=== PATIENT | male | born 1965 | race Caucasian/White ===

== ENCOUNTER 2016-08-15 13:09 | Emergency (ER) | payer MEDICARE, MEDICAID ==
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
[2016-08-15 16:44] LABS: APPEARANCE,URINE CLEAR; BILIRUBIN,URINE NEGATIVE (NEGATIVE); GLUCOSE, URINE NEGATIVE (NEGATIVE); KETONES,URINE NEGATIVE (NEGATIVE); LEUKOCYTE ESTERASE,URINE NEGATIVE (NEGATIVE); NITRITE,URINE POSITIVE (NEGATIVE); PROTEIN,URINE NEGATIVE (NEGATIVE); URINE SPECIFIC GRAVITY 1.008
[2016-08-15] MEDS ORDERED: CIPROFLOXACIN HCL 500 MG TABLET PO ONE (16:46)
[2016-08-15] MEDS ORDERED: HYDROCODONE/ACETAMINOPHEN 5-325 MG TABLET PO ONE (17:12)
[2016-08-15] MEDS ORDERED: OXYCODONE-ACETAMINOPHEN 5-325 MG TABLET PO ONE (17:21)
[2016-08-15 20:32] VITALS: BP 105/65
== END 2016-08-15 17:40 | disposition home or self-care (01) ==
LOC: ER 13:09
DX: N15.9 Renal tubulo-interstitial disease, unspecified (principal); R10.9 Unspecified abdominal pain; R39.198 Other difficulties with micturition; F17.210 Nicotine dependence, cigarettes, uncomplicated
CPT/HCPCS: 99284; 87086; 81001; 76380; A9270 ×2

== ENCOUNTER 2016-12-24 17:18 | Emergency (ER) | payer MEDICARE, MEDICAID ==
[2016-12-24 17:27] VITALS: BP 110/79
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
--- NOTE | 2016-12-24 20:19 | RADIOLOGY REPORT (SQ) ---
EXAM DESCRIPTION: VENOUS UNILATERAL LOWER COMPLETED DATE/TIME: 12/24/2016 8:09 pm REASON FOR STUDY: pain posterior leg left heavy smoker COMPARISON: None. TECHNIQUE: Dynamic and static morillo scale and color images acquired of the left leg venous system. Se lected spectral images acquired with additional compression and augmentation maneuvers. The contralat eral common femoral vein and saphenofemoral junction were also imaged. Images stored on PACS. LIMITATIONS: None. FINDINGS: COMMON FEMORAL: Normal phasicity, compression and augmentation. No visualized echogenic ma terial on morillo scale. No defects on color images. FEMORAL: Normal compression and augmentation. No visualized echogenic material on morillo scale. No defe cts on color images. POPLITEAL: Normal compression, augmentation. No visualized echogenic material on morillo scale. No defec ts on color images. CALF VESSELS: Normal compression, augmentation. No visualized echogenic material on morillo scale. No de fects on color images. GSV and SSV: Normal compression, augmentation. No visualized echogenic material on morillo scale. No def ects on color images. ANY DEEP VENOUS INSUFFICIENCY: Not evaluated. ANY EVIDENCE OF POPLITEAL CYST: No. OTHER: No other significant finding. CONTRALATERAL COMMON FEMORAL VEIN AND SAPHENOFEMORAL JUNCTION: Normal phasicity, compression and augmentation. No visualized echogenic material on morillo scale. No de fects on color images. IMPRESSION: NO EVIDENCE DVT OR SVT IN THE LEFT LEG. TECHNICAL DOCUMENTATION: JOB ID: [id number] [employer]- All Rights Reserved
[2016-12-24] MEDS ORDERED: IBUPROFEN 800 MG TABLET PO ONE (20:31)
== END 2016-12-24 20:40 | disposition home or self-care (01) ==
LOC: ER 17:18
DX: M79.662 Pain in left lower leg (principal); M79.652 Pain in left thigh; M25.562 Pain in left knee; G89.29 Other chronic pain; I10 Essential (primary) hypertension; F17.210 Nicotine dependence, cigarettes, uncomplicated; Z71.6 Tobacco abuse counseling; Z88.1 Allergy status to other antibiotic agents
CPT/HCPCS: 93971; 99283

== ENCOUNTER 2017-01-25 13:35 | Emergency (ER) | payer MEDICARE, MEDICAID ==
[2017-01-25 14:41] VITALS: BP 152/94
[2017-01-25] MEDS ORDERED: IBUPROFEN 800 MG TABLET PO ONE (15:14)
[2017-01-25] MEDS ORDERED: LIDOCAINE 2% VISCOUS SOLN 20 ML UDCUP PO ONE (15:14)
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
== END 2017-01-25 15:57 | disposition home or self-care (01) ==
LOC: ER 13:35
DX: G89.18 Other acute postprocedural pain (principal); R68.84 Jaw pain; I10 Essential (primary) hypertension; F17.210 Nicotine dependence, cigarettes, uncomplicated; Z71.6 Tobacco abuse counseling; Z88.1 Allergy status to other antibiotic agents
CPT/HCPCS: 99282; A9270; J3490

== ENCOUNTER → 2017-02-02 | Outpatient (CLI) | payer MEDICARE, MEDICAID ==
--- NOTE | 2017-02-02 10:47 | RADIOLOGY REPORT (SQ) ---
EXAM DESCRIPTION: SHOULDER RIGHT 2 OR MORE VIEWS COMPLETED DATE/TIME: 02/02/2017 10:15 am REASON FOR STUDY: DISLOCATION RIGHT SHOULDER,POST TRAMATIC OSTEOARTHRITIS RIGHT SHOULDER M19.111 PO ST-TRAUMATIC OSTEOARTHRITIS, RIGHT SHOULDER S43.004S UNSPECIFIED DISLOCATION OF RIGHT SHOULDER JOINT , SE M25.569 PAIN IN UNSPECIFIED KNEE COMPARISON: 05/15/2014 NUMBER OF VIEWS: Three views. TECHNIQUE: Internal rotation, external rotation, and Y view images acquired of the right shoulder. LIMITATIONS: None. FINDINGS: MINERALIZATION: Normal. BONES: No acute fracture or dislocation. No worrisome bone lesions. JOINTS: No dislocation. VISUALIZED LUNGS AND RIBS: No pneumothorax. No rib fracture. SOFT TISSUES: No radiopaque foreign body. OTHER: No other significant finding. IMPRESSION: NEGATIVE STUDY OF THE RIGHT SHOULDER. NO RADIOGRAPHIC EVIDENCE OF ACUTE INJURY. TECHNICAL DOCUMENTATION: JOB ID: [id number] [employer]- All Rights Reserved
--- NOTE | 2017-02-02 11:23 | RADIOLOGY REPORT (SQ) ---
EXAM DESCRIPTION: KNEE LEFT 4 VIEWS COMPLETED DATE/TIME: 02/02/2017 10:15 am REASON FOR STUDY: PAIN IN UNSPECIFIED KNEE M19.111 POST-TRAUMATIC OSTEOARTHRITIS, RIGHT SHOULDER S4 3.004S UNSPECIFIED DISLOCATION OF RIGHT SHOULDER JOINT, SE M25.569 PAIN IN UNSPECIFIED KNEE COMPARISON: 01/17/2015 MRI 03/21/2015 NUMBER OF VIEWS: Four views. TECHNIQUE: AP, lateral, and both oblique radiographic images acquired of the left knee. LIMITATIONS: None. FINDINGS: MINERALIZATION: Normal. BONES: No acute fracture or dislocation. No worrisome bone lesions. JOINT: There is no significant effusion. Posterior spurs are present on the patella. SOFT TISSUES: No soft tissue swelling. No radio-opaque foreign body. OTHER: No other significant finding. IMPRESSION: There are mild degenerative joint changes patellofemoral compartment. No other signific ant or acute abnormality is seen. TECHNICAL DOCUMENTATION: JOB ID: [id number] [employer]- All Rights Reserved
--- NOTE | 2017-02-02 11:26 | RADIOLOGY REPORT (SQ) ---
EXAM DESCRIPTION: KNEE RIGHT 4 VIEWS COMPLETED DATE/TIME: 02/02/2017 10:15 am REASON FOR STUDY: PAIN IN UNSPECIFIED KNEE M19.111 POST-TRAUMATIC OSTEOARTHRITIS, RIGHT SHOULDER S4 3.004S UNSPECIFIED DISLOCATION OF RIGHT SHOULDER JOINT, SE M25.569 PAIN IN UNSPECIFIED KNEE COMPARISON: 03/04/2008 NUMBER OF VIEWS: Four views. TECHNIQUE: AP, lateral, and both oblique radiographic images acquired of the right knee. LIMITATIONS: None. FINDINGS: MINERALIZATION: Normal. BONES: No acute fracture or dislocation. No worrisome bone lesions. JOINT: No effusion. There are posterior spurs on the patella. Marginal osteophytes are seen in the lateral joint compartment. SOFT TISSUES: Calcifications are seen in the medial ligaments. OTHER: No other significant finding. IMPRESSION: Mild patellofemoral degenerative joint changes and mild lateral degenerative joint velázquez es. Likely old medial ligament injury. TECHNICAL DOCUMENTATION: JOB ID: [id number] [employer]- All Rights Reserved
== END ==
LOC: OD 09:51
PROVIDERS: ATTEND Obstetrics & Gynecology
DX: S43.004S Unspecified dislocation of right shoulder joint, sequela (principal); M19.111 Post-traumatic osteoarthritis, right shoulder; M17.0 Bilateral primary osteoarthritis of knee

== ENCOUNTER 2017-02-07 20:15 | Observation (INO) | payer MEDICARE, MEDICAID ==
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
--- NOTE | 2017-02-07 22:16 | RADIOLOGY REPORT (SQ) ---
EXAM DESCRIPTION: SACRUM AND COCCYX COMPLETED DATE/TIME: 02/07/2017 10:02 pm REASON FOR STUDY: PA lat, rectal plastic FB COMPARISON: None. NUMBER OF VIEWS: Three views. TECHNIQUE: AP, lateral, and tilt views of the sacrum and coccyx. LIMITATIONS: None. FINDINGS: MINERALIZATION: Normal. BONES: No acute fracture or dislocation. No worrisome bone lesions. SOFT TISSUES: No soft tissue swelling. Rectal bowel gas outlines an oblong, roughly rectangular fore ign body which may taper cranially. OTHER: No other significant finding. IMPRESSION: Apparent rectal foreign body. Otherwise unremarkable appearance of the pelvis. TECHNICAL DOCUMENTATION: JOB ID: [id number] [employer]- All Rights Reserved
[2017-02-07] MEDS ORDERED: NORMAL SALINE 1000 ML 1,000 ML IV PRN (23:37)
[2017-02-07] MEDS ORDERED: MORPHINE SULFATE 10 MG/ML INJ IV PRN ×2 (23:41→23:42)
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
[2017-02-08] MEDS: MORPHINE SULFATE 10 MG/ML INJ IV PRN ×3 (04:11→14:13)
[2017-02-08 06:21] LABS: ABSOLUTE BASOPHILS # (AUTO) 0.1 10^3/uL (0.0-0.2); ABSOLUTE EOSINOPHILS # (AUTO) 0.3 10^3/uL (0.0-0.6); ABSOLUTE LYMPHOCYTES (AUTO) 2.4 10^3/uL (0.5-4.7); ABSOLUTE MONOCYTES (AUTO) 0.8 10^3/uL (0.1-1.4); ABSOLUTE NEUT (AUTO) 5.6 10^3/uL (1.7-8.2); BASOPHILS % (AUTO) 0.8 % (0-2); EOSINOPHILS % (AUTO) 2.9 % (0-6); HEMOGLOBIN 13.8 g/dL (13.5-17.0); HGB HCT DIFFERENCE 1.4; LYMPHOCYTES % (AUTO) 26.4 % (13-45); MEAN CORPUSCULAR HEMOGLOBIN 30.9 pg (27.0-33.4); MEAN CORPUSCULAR HGB CONC 34.5 g/dL (32.0-36.0); MEAN CORPUSCULAR VOLUME 90 fl (80-97); MONOCYTES % (AUTO) 8.8 % (3-13); RED BLOOD COUNT 4.47 10^6/uL (4.35-5.55); RED CELL DISTRIBUTION WIDTH 13.4 % (11.5-14.0); SEGMENTED NEUTROPHILS % (AUTO) 61.1 % (42-78); WHITE BLOOD COUNT 9.2 10^3/uL (4.0-10.5)
[2017-02-08 06:43] LABS: ANION GAP 11 (5-19); BLOOD UREA NITROGEN 20 mg/dL (7-20); CARBON DIOXIDE 22 mmol/L (22-30); CHLORIDE 106 mmol/L (98-107); CREATININE RESULT 0.94 mg/dL (0.52-1.25); GLUCOSE 91 mg/dL (75-110); SODIUM 139.2 mmol/L (137-145)
[2017-02-08] MEDS ORDERED: CEFAZOLIN INJ 1 GM VIAL IV ONE (08:00)
--- NOTE | 2017-02-08 10:48 | EKG REPORT ---
SEVERITY:- NORMAL ECG - SINUS RHYTHM : Confirmed by: Christophe Trejo 08-Feb-2017 10:47:41
[2017-02-08] MEDS ORDERED: IPRATROPIUM/ALBUTEROL 0.5-2.5 MG/3 ML AMPUL NEB ONE (10:56)
[2017-02-08] MEDS ORDERED: KETAMINE HCL INJ 500 MG/10 ML VIAL ONE (11:10)
[2017-02-08] MEDS ORDERED: MIDAZOLAM 2 MG/2 ML INJ ONE ×2 (11:10→11:11)
[2017-02-08] MEDS ORDERED: FENTANYL CITRATE INJ/PF 100 MCG/2 ML AMPUL ONE (11:10)
[2017-02-08] MEDS ORDERED: PROPOFOL INJ 200 MG/20 ML VIAL IV ONE (11:10)
[2017-02-08] MEDS ORDERED: GLUCAGON,HUMAN RECOMB 1 MG INJ ONE (11:12)
[2017-02-08] MEDS ORDERED: CIPROFLOXACIN 400 MG/D5W RTU 400 MG/200 ML RTUPB IV ONE (11:30)
[2017-02-08] MEDS ORDERED: LIDOCAINE 1% INJ (10 MG/ML) 10 ML MDV INJ ONE (11:54)
[2017-02-08] MEDS ORDERED: LIDOCAINE 1% INJ-PF (10 MG/ML) 30 ML SDV ONE (11:55)
[2017-02-08 16:08] VITALS: BP 97/57
--- NOTE | 2017-02-08 16:48 | OPERATIVE REPORT E ---
Operative Report NAME: ORLANDO PUTNAM : 1965 AGE: 51Y DATE OF SURGERY: 02/08/2017 ROOM: 427 PREOPERATIVE DIAGNOSIS: Foreign body in the rectum, a plastic lotion bottle. POSTOPERATIVE DIAGNOSIS: Foreign body in the rectum, a plastic lotion bottle. OPERATION: Removal of foreign body "plastic bottle" from the rectum. SURGEON: MARLA TOBAR M.D. ANESTHESIA: General. INDICATION: This is a 51-year-old male who inserted a plastic bottle of shampoo in his rectum about 3 nights ago. He has been complaining of increasing pains and went to the emergency room last night and noted to have a bottle in the rectum about 14 cm x 5.5 cm in diameter. The patient still able to pass flatus but has episodic pains in the abdomen likely due to gas pains. His white count remained normal and afebrile. DESCRIPTION OF PROCEDURE: After adequate general anesthesia, the patient was placed in the lithotomy position and the perineal area prepped and draped in the usual sterile fashion. With the use of a vaginal speculum, the plastic bottle could be seen and could be palpated by the tip of the index finger; however, it appeared to be stuck. Next, a 20-Congolese relatively stiff Myers catheter with a 30 mL bag was then passed through the side of the foreign body into the distal rectum and subsequently inflated a 30 mL balloon and pulled back until it engaged the foreign body. This was done to prevent the foreign body from moving up while trying to pull it out. Next, the superior edge of the bottle was grasped with tenaculum forceps and there was a gush of bluish fluid that was quite jelly like and appear to be shampoo in character. Following this, since I was not able to pull out the foreign body with the use of tenaculum because the bottle tends to go posterior, and attempt to make an opening through the center of the bottle with the use of an #11 blade was done. More gush of the bottle contents came out and suctioned out. At this point, another tenaculum forceps was placed on the medial aspect of the bottle. Also the patient was given 1 mg of glucagon IV after injecting the rectal sphincters with 20 mL of 0.5% Xylocaine. This time when the bottle was almost empty and the rectal sphincter was more relaxed together with the glucagon effect, I was able to pull back on bottle and eventually pull it out of the rectum. The patient did have a small amount of bleeding around the mucosa during the procedure but no evidence of deep injury. At this point, the procedure was terminated. The patient tolerated the procedure quite well. Minimal blood loss was noted. The bottle I believe is an 8 fluid ounce of shampoo. The patient was then brought to the PACU in satisfactory condition. DICTATING PHYSICIAN: MARLA TOBAR M.D. [id number] PHY#: [id number] ID: [id number] JOB#: [id number] ACCT: [id number] cc:MARLA TOBAR M.D. >
[2017-02-08] MEDS ORDERED: OXYCODONE-ACETAMINOPHEN 5-325 MG TABLET PO PRN (17:25)
[2017-02-08] MEDS ORDERED: OXYCODONE-ACETAMINOPHEN 5-325 MG TABLET ONE (17:26)
[2017-02-08] MEDS ORDERED: MORPHINE SULFATE 10 MG/ML INJ IV PRN (18:11)
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
== END 2017-02-08 19:00 | disposition home or self-care (01) ==
LOC: ER 20:15 → EH 23:37 → UNDOADMOB 23:53 → EH 23:53 → 4S 02-08 02:15
PROVIDERS: ATTEND Surgery
PROC: 0DCP7ZZ Extirpation of Matter from Rectum, Via Natural or Artificial Opening (ICD-10-PCS; principal; 2017-02-08 11:30)
DX: T18.5XXA Foreign body in anus and rectum, initial encounter (principal); X58.XXXA Exposure to other specified factors, initial encounter; K62.5 Hemorrhage of anus and rectum; I10 Essential (primary) hypertension; E78.00 Pure hypercholesterolemia, unspecified; F17.200 Nicotine dependence, unspecified, uncomplicated; Z79.899 Other long term (current) drug therapy; Z87.820 Personal history of traumatic brain injury
CPT/HCPCS: 99285; 96361; 96374; 36415; 87040; 85025; 80048; 72220; 93005; 93010; 45915; J2250; J3010; J1610; J3490 ×2; J2270; A9270 ×2; J7030; J2704; J7620

== ENCOUNTER 2017-03-05 13:22 | Emergency (ER) | payer MEDICARE, MEDICAID ==
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
--- NOTE | 2017-03-05 17:07 | RADIOLOGY REPORT (SQ) ---
EXAM DESCRIPTION: ACUTE ABDOMEN SERIES COMPLETED DATE/TIME: 03/05/2017 4:57 pm REASON FOR STUDY: no BM x 5 days COMPARISON: CT abdomen pelvis 08/15/2016 Supine and erect views of the abdomen 12/19/2013, 08/09/2010 NUMBER OF VIEWS: Three views. TECHNIQUE: Frontal chest, supine abdomen and upright abdomen radiographic images acquired. LIMITATIONS: None. FINDINGS: CHEST: Chronic elevation of the right hemidiaphragm unchanged. No acute infiltrates. No pleural effusion. No pneumothorax. No cardiomegaly or hilar enlargement. FREE AIR: None. No abnormal gas collections. BOWEL GAS PATTERN: Nonobstructive pattern. No dilated loops or air fluid levels. CALCIFICATIONS: 12 mm stone over the left lower pole kidney unchanged from CT 08/15/2016. HARDWARE: IVC filter at the level of the L1 and L2 transverse processes SOFT TISSUES: No gross mass or suggestion of organomegaly. BONES: No acute fracture. No worrisome bone lesions. OTHER: No other significant finding. IMPRESSION: Nonobstructive bowel gas pattern. No constipation. Left lower pole intrarenal nonobstructive stone. Chronic elevation right hemidiaphragm. TECHNICAL DOCUMENTATION: JOB ID: [id number] [employer]- All Rights Reserved
[2017-03-05] MEDS ORDERED: MAGNESIUM CITRATE 296 ML BOTTLE PO ONE (17:10)
[2017-03-05 17:29] VITALS: BP 136/82
== END 2017-03-05 17:29 | disposition home or self-care (01) ==
LOC: ER 13:22
DX: K59.03 Drug induced constipation (principal); T40.2X5A Adverse effect of other opioids, initial encounter; I10 Essential (primary) hypertension; F17.200 Nicotine dependence, unspecified, uncomplicated; Z88.1 Allergy status to other antibiotic agents; Z98.890 Other specified postprocedural states
CPT/HCPCS: 99283; 74022; J3490

== ENCOUNTER 2017-05-27 13:08 | Inpatient (IN) | payer MEDICARE, MEDICAID ==
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
[2017-05-27 13:32] LABS: ABSOLUTE BASOPHILS # (AUTO) 0.1 10^3/uL (0.0-0.2); ABSOLUTE EOSINOPHILS # (AUTO) 0.3 10^3/uL (0.0-0.6); ABSOLUTE LYMPHOCYTES (AUTO) 2.2 10^3/uL (0.5-4.7); ABSOLUTE MONOCYTES (AUTO) 0.8 10^3/uL (0.1-1.4); ABSOLUTE NEUT (AUTO) 5.8 10^3/uL (1.7-8.2); BASOPHILS % (AUTO) 0.7 % (0-2); EOSINOPHILS % (AUTO) 2.8 % (0-6); HEMATOCRIT 45.3 % (37.9-51.0); HEMOGLOBIN 15.5 g/dL (13.5-17.0); LYMPHOCYTES % (AUTO) 23.9 % (13-45); MEAN CORPUSCULAR HEMOGLOBIN 30.6 pg (27.0-33.4); MEAN CORPUSCULAR HGB CONC 34.3 g/dL (32.0-36.0); MEAN CORPUSCULAR VOLUME 89 fl (80-97); MONOCYTES % (AUTO) 8.9 % (3-13); PLATELET COUNT 192 10^3/uL (150-450); RED BLOOD COUNT 5.07 10^6/uL (4.35-5.55); RED CELL DISTRIBUTION WIDTH 13.2 % (11.5-14.0); SEGMENTED NEUTROPHILS % (AUTO) 63.7 % (42-78); TOTAL CELLS COUNTED % (AUTO) 100 %; WHITE BLOOD COUNT 9.1 10^3/uL (4.0-10.5)
[2017-05-27 14:00] LABS: ALANINE AMINOTRANSFERASE 24 U/L (21-72); ALBUMIN 4.3 g/dL (3.5-5.0); ALKALINE PHOSPHATASE 79 U/L (38-126); ANION GAP 11 (5-19); ASPARTATE AMINO TRANSFERASE 18 U/L (17-59); BILIRUBIN,DIRECT 0.3 mg/dL (0.0-0.4); BILIRUBIN,TOTAL 0.6 mg/dL (0.2-1.3); BLOOD UREA NITROGEN 16 mg/dL (7-20); CALCIUM 9.9 mg/dL (8.4-10.2); CARBON DIOXIDE 27 mmol/L (22-30); CHLORIDE 102 mmol/L (98-107); GLUCOSE 88 mg/dL (75-110); POTASSIUM 4.1 mmol/L (3.6-5.0); SODIUM 140.3 mmol/L (137-145); TOTAL PROTEIN 6.8 g/dL (6.3-8.2)
[2017-05-27 14:01] LABS: ACETAMINOPHEN < 10 ug/mL (10-30); ALCOHOL < 10 mg/dL (NONE DETECTED); SALICYLATE < 1.0 mg/dL (2.0-20.0)
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
[2017-05-27] MEDS ORDERED: NORMAL SALINE 1000 ML 1,000 ML IV ONE ×2 (15:07→16:03)
[2017-05-27 15:26] LABS: AMORPHOUS SEDIMENT,URINE TRACE /HPF; APPEARANCE,URINE CLOUDY; BILIRUBIN,URINE NEGATIVE (NEGATIVE); COLOR,URINE YELLOW; GLUCOSE, URINE NEGATIVE (NEGATIVE); KETONES,URINE NEGATIVE (NEGATIVE); LEUKOCYTE ESTERASE,URINE NEGATIVE (NEGATIVE); NITRITE,URINE NEGATIVE (NEGATIVE); PROTEIN,URINE NEGATIVE (NEGATIVE); URINE SPECIFIC GRAVITY 1.009
[2017-05-27] MEDS ORDERED: NALOXONE HCL INJ 2 MG/2 ML DISP.SYRIN IV ONE (15:31)
[2017-05-27 15:42] LABS: URINE AMPHETAMINES SCREEN NEGATIVE; URINE BARBITURATES SCREEN NEGATIVE; URINE BENZODIAZEPINES SCREEN NEGATIVE; URINE COCAINE SCREEN NEGATIVE; URINE MARIJUANA (THC) SCREEN NEGATIVE; URINE METHADONE SCREEN NEGATIVE; URINE PHENCYCLIDINE SCREEN NEGATIVE
--- NOTE | 2017-05-27 19:10 | EKG REPORT ---
SEVERITY:- NORMAL ECG - SINUS RHYTHM : Confirmed by: Christophe Trejo 27-May-2017 19:09:41
[2017-05-27] MEDS ORDERED: DEXTROSE 5%-NORMAL SALINE 1,000 ML IV PRN ×2 (20:11→20:22)
[2017-05-27] MEDS ORDERED: DEXTROSE 40% GEL 15 GM TUBE PO PRN (20:12)
[2017-05-27] MEDS ORDERED: GLUCAGON,HUMAN RECOMB 1 MG INJ SUBCUT PRN (20:12)
--- NOTE | 2017-05-27 21:21 | RADIOLOGY REPORT (SQ) ---
EXAM DESCRIPTION: CHEST SINGLE VIEW COMPLETED DATE/TIME: 05/27/2017 8:44 pm REASON FOR STUDY: AMS COMPARISON: None. NUMBER OF VIEWS: One view. TECHNIQUE: Single frontal radiographic view of the chest acquired. LIMITATIONS: None. FINDINGS: LUNGS AND PLEURA: Low lung volumes. No opacities, masses or pneumothorax. No pleural eff usion. MEDIASTINUM AND HILAR STRUCTURES: No masses. No contour abnormality. HEART AND VASCULAR STRUCTURES: Normal size. No evidence for failure. BONES: No acute findings. HARDWARE: None in the chest. OTHER: No other significant finding. IMPRESSION: LOW LUNG VOLUMES. NO SIGNIFICANT RADIOGRAPHIC FINDING IN THE CHEST. TECHNICAL DOCUMENTATION: JOB ID: [id number] [employer]- All Rights Reserved
[2017-05-27 21:42] LABS: VENOUS BLOOD BASE EXCESS -1.4 mmol/L; VENOUS BLOOD HCO3 25.2 mmol/L (20-32); VENOUS BLOOD PCO2 49.3 mmHg (35-63); VENOUS BLOOD PH 7.33 (7.30-7.42)
[2017-05-27] MEDS ORDERED: THIAMINE HCL 100 MG, FOLIC ACID 1 MG in NORMAL SALINE 250 ML IV ONE (22:00)
[2017-05-28 04:51] LABS: ANION GAP 7 (5-19); BLOOD UREA NITROGEN 16 mg/dL (7-20); CALCIUM 9.1 mg/dL (8.4-10.2); CARBON DIOXIDE 27 mmol/L (22-30); CHLORIDE 108 mmol/L (98-107); GLUCOSE 87 mg/dL (75-110); POTASSIUM 4.4 mmol/L (3.6-5.0); SODIUM 142.3 mmol/L (137-145)
--- NOTE | 2017-05-28 08:51 | PDOC H&P ---
History of Present Illness Admission Date/PCP: 05/27/17 19:51 Patient complains of: Drug overdose History of Present Illness: ORLANDO PUTNAM SR is a 51 year old male Past Medical History Cardiac Medical History: Reports: Hyperlipidema, Hypertension Neurological Medical History: Reports: Seizures, Other - TBI Psychiatric Medical History: Reports: Depression, Other - Traumatic brain injury Traumatic Medical History: Reports: Traumatic Brain Injury Past Surgical History Past Surgical History: Not known patient is not answering questions appropriately Social History Smoking Status: Unknown if Ever Smoked Frequency of Alcohol Use: Occasional Hx Recreational Drug Use: No Hx Prescription Drug Abuse: No - Advance Directive Resuscitation Status: Full Code - Presumed to be a full code patient is not answering questions appropriately Family History Family History: Arthritis, CVA, Hyperlipidemia, Hypertension, Malignancy, Thyroid Disfunction Parental Family History Reviewed: Yes Children Family History Reviewed: Yes Sibling(s) Family History Reviewed.: Yes Medication/Allergy Home Medications: Gabapentin [Neurontin 400 mg Capsule] 800 mg PO Q8 05/27/17 Lisinopril [Prinivil 10 mg Tablet] 10 mg PO QHS 05/27/17 Sertraline HCl [Zoloft 50 mg Tablet] 100 mg PO QAM 05/27/17 Simvastatin [Zocor 20 mg Tablet] 20 mg PO QHS 05/27/17 Allergies/Adverse Reactions: erythromycin base [Erythromycin Base] Allergy (Verified 03/05/17 13:25) Review of Systems ROS unobtainable: Due to mental status Physical Exam Vital Signs: Temp Pulse Resp BP Pulse Ox 97.8 F 99 14 117/85 95 05/28/17 06:01 05/27/17 15:09 05/28/17 08:32 05/28/17 08:32 05/28/17 08:32 Intake & Output 05/27/17 05/28/17 05/29/17 00:59 00:59 00:59 Output Total 700 Balance -700 General appearance: PRESENT: disheveled, well-developed, well-nourished Head exam: PRESENT: atraumatic, normocephalic Eye exam: PRESENT: conjunctiva pink, EOMI, PERRLA. ABSENT: scleral icterus Ear exam: PRESENT: normal external ear exam Mouth exam: PRESENT: moist, tongue midline Neck exam: ABSENT: carotid bruit, JVD, lymphadenopathy, thyromegaly Respiratory exam: PRESENT: clear to auscultation neri. ABSENT: rales, rhonchi, wheezes Cardiovascular exam: PRESENT: RRR. ABSENT: diastolic murmur, rubs, systolic murmur Pulses: PRESENT: normal dorsalis pedis pul Vascular exam: PRESENT: normal capillary refill GI/Abdominal exam: PRESENT: normal bowel sounds, soft. ABSENT: distended, guarding, mass, organolmegaly, rebound, tenderness Rectal exam: PRESENT: deferred Extremities exam: PRESENT: full ROM. ABSENT: calf tenderness, clubbing, pedal edema Neurological exam: PRESENT: altered, other - Extremely lethargic but arousable appears to be moving all 4 extremities Psychiatric exam: PRESENT: normal mood, other - Cannot evaluate patient is too lethargic Skin exam: PRESENT: dry, intact, warm. ABSENT: cyanosis, rash Results Laboratory Results: 05/28/17 04:25 05/27/17 05/28/17 21:20 04:25 VBG pH 7.33 VBG pCO2 49.3 VBG HCO3 25.2 VBG Base Excess -1.4 Sodium 142.3 Potassium 4.4 Chloride 108 H Carbon Dioxide 27 Anion Gap 7 BUN 16 Creatinine 0.99 Est GFR ( Amer) > 60 Est GFR (Non-Af Amer) > 60 Glucose 87 Calcium 9.1 Impressions: Chest X-Ray 05/27/17 20:20 IMPRESSION: LOW LUNG VOLUMES. NO SIGNIFICANT RADIOGRAPHIC FINDING IN THE CHEST. Assessment & Plan - Diagnosis (1) Overdose Qualifiers: Encounter type: initial encounter Injury intent: intentional self-harm Qualified Code(s): T50.902A - Poisoning by unspecified drugs, medicaments and biological substances, intentional self-harm, initial encounter Is this a current diagnosis for this admission?: Yes Plan: Patient took an overdose of Ambien (2) Suicide attempt by drug ingestion Qualifiers: Encounter type: initial encounter Qualified Code(s): T50.902A - Poisoning by unspecified drugs, medicaments and biological substances, intentional self- harm, initial encounter Is this a current diagnosis for this admission?: Yes Plan: Presumed suicidal ideation patient cannot be interviewed at this time Psych consult to be obtained in a.m. when patient's mentation is improved - Time Time Spent: 50 to 70 Minutes - Inpatient Certification Based on my medical assessment, after consideration of the patient's comorbidities, presenting symptoms, or acuity I expect that the services needed warrant INPATIENT care.: No I certify that my determination is in accordance with my understanding of Medicare's requirements for reasonable and necessary INPATIENT services [42 CFR 412.3e].: No - Plan Summary Plan Summary: Will watch the patient overnight IV fluids, sitter Psych evaluation in a.m. Patient will be admitted to ICU for observation
--- NOTE | 2017-05-28 08:54 | PDOC PROGRESS REPORT ---
Subjective Progress Note for:: 05/28/17 Subjective:: Patient is awake this morning not very cooperative Does not wish to comment on his overdose He appears in no distress Reason For Visit: DRUG OD, ACUTE ENCEPHALOPATHY Physical Exam Vital Signs: Temp Pulse Resp BP Pulse Ox 97.8 F 99 14 117/85 95 05/28/17 06:01 05/27/17 15:09 05/28/17 08:32 05/28/17 08:32 05/28/17 08:32 Intake & Output 05/27/17 05/28/17 05/29/17 00:59 00:59 00:59 Output Total 700 Balance -700 General appearance: PRESENT: no acute distress, well-developed, well-nourished Head exam: PRESENT: atraumatic, normocephalic Eye exam: PRESENT: conjunctiva pink, EOMI, PERRLA. ABSENT: scleral icterus Ear exam: PRESENT: normal external ear exam Mouth exam: PRESENT: moist, tongue midline Neck exam: ABSENT: carotid bruit, JVD, lymphadenopathy, thyromegaly Respiratory exam: PRESENT: clear to auscultation neri. ABSENT: rales, rhonchi, wheezes Cardiovascular exam: PRESENT: RRR. ABSENT: diastolic murmur, rubs, systolic murmur Pulses: PRESENT: normal dorsalis pedis pul Vascular exam: PRESENT: normal capillary refill GI/Abdominal exam: PRESENT: normal bowel sounds, soft. ABSENT: distended, guarding, mass, organolmegaly, rebound, tenderness Rectal exam: PRESENT: deferred Extremities exam: PRESENT: full ROM. ABSENT: calf tenderness, clubbing, pedal edema Neurological exam: PRESENT: alert, awake, oriented to person, oriented to place , oriented to time, oriented to situation, CN II-XII grossly intact. ABSENT: motor sensory deficit Psychiatric exam: PRESENT: appropriate affect, normal mood. ABSENT: homicidal ideation, suicidal ideation Skin exam: PRESENT: dry, intact, warm. ABSENT: cyanosis, rash Results Laboratory Results: 05/28/17 04:25 05/27/17 05/28/17 21:20 04:25 VBG pH 7.33 VBG pCO2 49.3 VBG HCO3 25.2 VBG Base Excess -1.4 Sodium 142.3 Potassium 4.4 Chloride 108 H Carbon Dioxide 27 Anion Gap 7 BUN 16 Creatinine 0.99 Est GFR ( Amer) > 60 Est GFR (Non-Af Amer) > 60 Glucose 87 Calcium 9.1 EKG Comments: Normal sinus rhythm no acute changes Impressions: Chest X-Ray 05/27/17 20:20 IMPRESSION: LOW LUNG VOLUMES. NO SIGNIFICANT RADIOGRAPHIC FINDING IN THE CHEST. Assessment & Plan - Diagnosis (1) Overdose Qualifiers: Encounter type: initial encounter Injury intent: intentional self-harm Qualified Code(s): T50.902A - Poisoning by unspecified drugs, medicaments and biological substances, intentional self-harm, initial encounter Is this a current diagnosis for this admission?: Yes Plan: Patient's mentation is improved today We will discontinue IV fluids Give patient a diet ; patient is medically cleared for psych evaluation (2) Suicide attempt by drug ingestion Qualifiers: Encounter type: initial encounter Qualified Code(s): T50.902A - Poisoning by unspecified drugs, medicaments and biological substances, intentional self- harm, initial encounter Is this a current diagnosis for this admission?: Yes - Time Time Spent with patient: 25-34 minutes - Plan Summary Plan Summary: Patient may be transferred to medical unit with sitter He is still IVC
[2017-05-28] MEDS: ENOXAPARIN SODIUM INJ 40 MG/0.4 ML DISP.SYRIN SUBCUT SCH (11:47)
[2017-05-28] MEDS ORDERED: GABAPENTIN 400 MG CAPSULE PO ONE (18:00)
[2017-05-28] MEDS ORDERED: GABAPENTIN 400 MG CAPSULE PO SCH (22:00)
[2017-05-28] MEDS ORDERED: LISINOPRIL 10 MG TABLET PO SCH (22:00)
[2017-05-28] MEDS: SIMVASTATIN 10 MG TABLET PO SCH (22:22)
[2017-05-29] MEDS ORDERED: SERTRALINE HCL 50 MG TABLET PO SCH (08:00)
--- NOTE | 2017-05-29 08:56 | PDOC PROGRESS REPORT ---
Subjective Progress Note for:: 05/29/17 Subjective:: Patient is alert and awake today Denies being suicidal at this time admit that he was extremely depressed It took almost a whole bottle of Ambien He did not understand what it would do to him Patient states lives with his brother handles his money He did not have any prior suicidal attempts Reason For Visit: DRUG OD, ACUTE ENCEPHALOPATHY Physical Exam Vital Signs: Temp Pulse Resp BP Pulse Ox 98.5 F 63 18 107/62 95 05/29/17 08:53 05/29/17 08:53 05/29/17 08:53 05/29/17 08:53 05/29/17 08:53 Intake & Output 05/28/17 05/29/17 05/30/17 00:59 00:59 00:59 Output Total 600 Balance -600 Weight 95.2 kg General appearance: PRESENT: no acute distress, well-developed, well-nourished Eye exam: PRESENT: conjunctiva pink, EOMI, PERRLA. ABSENT: scleral icterus Respiratory exam: PRESENT: clear to auscultation neri. ABSENT: rales, rhonchi, wheezes Cardiovascular exam: PRESENT: RRR. ABSENT: diastolic murmur, rubs, systolic murmur Pulses: PRESENT: normal dorsalis pedis pul GI/Abdominal exam: PRESENT: normal bowel sounds, soft. ABSENT: distended, guarding, mass, organolmegaly, rebound, tenderness Psychiatric exam: PRESENT: appropriate affect, normal mood. ABSENT: homicidal ideation, suicidal ideation Results Impressions: Chest X-Ray 05/27/17 20:20 IMPRESSION: LOW LUNG VOLUMES. NO SIGNIFICANT RADIOGRAPHIC FINDING IN THE CHEST. Assessment & Plan - Diagnosis (1) Overdose Qualifiers: Encounter type: initial encounter Injury intent: intentional self-harm Qualified Code(s): T50.902A - Poisoning by unspecified drugs, medicaments and biological substances, intentional self-harm, initial encounter Is this a current diagnosis for this admission?: Yes (2) Suicide attempt by drug ingestion Qualifiers: Encounter type: initial encounter Qualified Code(s): T50.902A - Poisoning by unspecified drugs, medicaments and biological substances, intentional self- harm, initial encounter Is this a current diagnosis for this admission?: Yes (3) Traumatic brain injury Is this a current diagnosis for this admission?: Yes (4) Depression Is this a current diagnosis for this admission?: Yes - Time Time Spent with patient: 25-34 minutes - Plan Summary Plan Summary: Psych consult today patient is medically cleared and could be discharged to his brother's care if cleared by psychiatry
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
[2017-05-29] MEDS: ENOXAPARIN SODIUM INJ 40 MG/0.4 ML DISP.SYRIN SUBCUT SCH (12:31)
[2017-05-29] MEDS: GABAPENTIN 400 MG CAPSULE PO SCH ×3 (12:35→22:38)
--- NOTE | 2017-05-29 16:00 | PDOC PROGRESS REPORT ---
Subjective Progress Note for:: 05/29/17 Subjective:: Patient was evaluated today by psychiatry and was found to be at risk he is still IVC He was found to be a candidate for psych admission He is quite cooperative Reason For Visit: DRUG OD, ACUTE ENCEPHALOPATHY Physical Exam Vital Signs: Temp Pulse Resp BP Pulse Ox 98.1 F 79 16 95/64 L 97 05/29/17 12:39 05/29/17 12:39 05/29/17 12:39 05/29/17 12:39 05/29/17 12:39 Intake & Output 05/28/17 05/29/17 05/30/17 00:59 00:59 00:59 Output Total 600 Balance -600 Weight 95.2 kg General appearance: PRESENT: no acute distress, well-developed, well-nourished Head exam: PRESENT: atraumatic, normocephalic Eye exam: PRESENT: conjunctiva pink, EOMI, PERRLA. ABSENT: scleral icterus Ear exam: PRESENT: normal external ear exam Mouth exam: PRESENT: moist, tongue midline Neck exam: ABSENT: carotid bruit, JVD, lymphadenopathy, thyromegaly Respiratory exam: PRESENT: clear to auscultation neri. ABSENT: rales, rhonchi, wheezes Cardiovascular exam: PRESENT: RRR. ABSENT: diastolic murmur, rubs, systolic murmur Pulses: PRESENT: normal dorsalis pedis pul Vascular exam: PRESENT: normal capillary refill GI/Abdominal exam: PRESENT: normal bowel sounds, soft. ABSENT: distended, guarding, mass, organolmegaly, rebound, tenderness Rectal exam: PRESENT: deferred Extremities exam: PRESENT: full ROM. ABSENT: calf tenderness, clubbing, pedal edema Neurological exam: PRESENT: alert, awake, CN II-XII grossly intact. ABSENT: motor sensory deficit Psychiatric exam: PRESENT: appropriate affect, normal mood. ABSENT: homicidal ideation, suicidal ideation Skin exam: PRESENT: dry, intact, warm. ABSENT: cyanosis, rash Results Impressions: Chest X-Ray 05/27/17 20:20 IMPRESSION: LOW LUNG VOLUMES. NO SIGNIFICANT RADIOGRAPHIC FINDING IN THE CHEST. Assessment & Plan - Diagnosis (1) Overdose Qualifiers: Encounter type: initial encounter Injury intent: intentional self-harm Qualified Code(s): T50.902A - Poisoning by unspecified drugs, medicaments and biological substances, intentional self-harm, initial encounter Is this a current diagnosis for this admission?: Yes (2) Suicide attempt by drug ingestion Qualifiers: Encounter type: initial encounter Qualified Code(s): T50.902A - Poisoning by unspecified drugs, medicaments and biological substances, intentional self- harm, initial encounter Is this a current diagnosis for this admission?: Yes (3) Traumatic brain injury Is this a current diagnosis for this admission?: Yes (4) Depression Is this a current diagnosis for this admission?: Yes - Time Time Spent with patient: 25-34 minutes - Plan Summary Plan Summary: Initiate Depakote p.o. the patient will remain as an inpatient on the medical unit until transferred to psych
[2017-05-29] MEDS: DIVALPROEX SODIUM 250 MG TABLET.DR PO SCH (17:53)
[2017-05-29] MEDS: SIMVASTATIN 10 MG TABLET PO SCH (22:38)
[2017-05-30] MEDS: GABAPENTIN 400 MG CAPSULE PO SCH ×3 (06:48→21:50)
[2017-05-30] MEDS: DIVALPROEX SODIUM 250 MG TABLET.DR PO SCH ×2 (06:48→18:02)
[2017-05-30] MEDS: ENOXAPARIN SODIUM INJ 40 MG/0.4 ML DISP.SYRIN SUBCUT SCH (10:12)
--- NOTE | 2017-05-30 16:29 | PDOC PROGRESS REPORT ---
Subjective Progress Note for:: 05/30/17 Subjective:: Patient is sitting up in chair doing well. Patient asking when he can go home. Patient states that he may be tempted to smoke when goes home. Reason For Visit: DRUG OD, ACUTE ENCEPHALOPATHY Physical Exam Vital Signs: Temp Pulse Resp BP Pulse Ox 98.8 F 60 16 109/75 100 05/30/17 13:48 05/30/17 13:48 05/30/17 13:48 05/30/17 13:48 05/30/17 13:48 Intake & Output 05/29/17 05/30/17 05/31/17 06:59 06:59 06:59 Intake Total 2295 Output Total 600 Balance -600 2295 Weight 95.2 kg 92 kg General appearance: PRESENT: no acute distress, well-developed, well-nourished Head exam: PRESENT: atraumatic, normocephalic Eye exam: PRESENT: conjunctiva pink, EOMI, PERRLA. ABSENT: scleral icterus Ear exam: PRESENT: normal external ear exam Mouth exam: PRESENT: moist, tongue midline Neck exam: ABSENT: carotid bruit, JVD, lymphadenopathy, thyromegaly Respiratory exam: PRESENT: clear to auscultation neri. ABSENT: rales, rhonchi, wheezes Cardiovascular exam: PRESENT: RRR. ABSENT: diastolic murmur, rubs, systolic murmur Pulses: PRESENT: normal dorsalis pedis pul Vascular exam: PRESENT: normal capillary refill GI/Abdominal exam: PRESENT: normal bowel sounds, soft. ABSENT: distended, guarding, mass, organolmegaly, rebound, tenderness Rectal exam: PRESENT: deferred Extremities exam: PRESENT: full ROM. ABSENT: calf tenderness, clubbing, pedal edema Neurological exam: PRESENT: alert, awake, oriented to person, oriented to place , oriented to time, oriented to situation, CN II-XII grossly intact, other - slurred speech. ABSENT: motor sensory deficit Psychiatric exam: PRESENT: appropriate affect, normal mood. ABSENT: homicidal ideation, suicidal ideation Skin exam: PRESENT: dry, intact, warm. ABSENT: cyanosis, rash Results Impressions: Chest X-Ray 05/27/17 20:20 IMPRESSION: LOW LUNG VOLUMES. NO SIGNIFICANT RADIOGRAPHIC FINDING IN THE CHEST. Assessment & Plan - Diagnosis (1) Overdose Qualifiers: Encounter type: initial encounter Injury intent: intentional self-harm Qualified Code(s): T50.902A - Poisoning by unspecified drugs, medicaments and biological substances, intentional self-harm, initial encounter Is this a current diagnosis for this admission?: Yes Plan: Patient took several ambien and wrote suicide letter. Patient seen by psychology with IVC in place. Sitter in place. (2) Depression Is this a current diagnosis for this admission?: Yes Plan: Stable. Psychology following. Patient started on Depakote 500mg bid. Zoloft discontinued. These order per psychology recommendations. (3) Suicide attempt by drug ingestion Qualifiers: Encounter type: initial encounter Qualified Code(s): T50.902A - Poisoning by unspecified drugs, medicaments and biological substances, intentional self- harm, initial encounter Is this a current diagnosis for this admission?: Yes Plan: IVC in place. Psychology following. (4) Traumatic brain injury Is this a current diagnosis for this admission?: Yes Plan: Stable. - Time Time Spent with patient: Less than 15 minutes Anticipated discharge: Other - Inpatient Certification Medical Necessity: Significant Comorbidiites Make Outpatient Treatment Too Risky , Need Close Monitoring Due to Risk of Patient Decompensation
[2017-05-30] MEDS: SIMVASTATIN 10 MG TABLET PO SCH (21:50)
[2017-05-31] MEDS: DIVALPROEX SODIUM 250 MG TABLET.DR PO SCH (06:32)
[2017-05-31] MEDS: GABAPENTIN 400 MG CAPSULE PO SCH ×2 (06:32→14:22)
[2017-05-31 08:23] VITALS: BP 121/80
[2017-05-31] MEDS: ENOXAPARIN SODIUM INJ 40 MG/0.4 ML DISP.SYRIN SUBCUT SCH (09:58)
--- NOTE | 2017-06-01 09:47 | PSYCHOLOGICAL NOTE ---
Psych Note - Psych Note Psych Note: Reason for consult: Re-evaluation, Attempted Overdose (Ambien) Patient was sitting up in his chair at bedside when this analysis evaluator entered. Patient appeared pleasant and engaged easily. Patient stated he was very depressed when he was admitted to the hospital. He reported he had lost both his and his mother and had started to feel like no one cared about him. Patient stated It came to a head. He stated he felt like him taking the medication was a plea to get someone to talk to. Patient stated he was told he posted [facility] on social media but does not remember doing so now. He stated the Ambien must have already started affecting him when he posted. He stated, Ingris done a lot of praying. I thank God He saved my life. When asked how he would respond going forward if he felt the same way he stated he would, Talk to my brother. I was holding everything in and that got me where I am. The patient indicated he has a strong support in his brother, who he lives with , and will utilize that support going forward. He stated his brother is happy I didnt . The patient agreed to follow up with an outpatient provider in the community and continue on the recommended medication regimen. The patient stated he feels like a weight is lifted off of me. Patient acknowledges he attempted to commit suicide and the multiple impacts that would have on his family members. Patient was able to evidence future thinking by discussing wanting to see his grandchildren grow up and not just be a memory for them. Patient was alert and oriented to person, place, time and circumstance. Mood was euthymic with congruent affect. Patient denied current suicidal/homicidal ideation, intent or plan. He did not appear to be responding to internal stimuli as evidenced by appropriate eye contact, maintaining conversation and staying on topic. No delusions or psychosis noted. Thought processes were organized and linear. Conversational speech was slurred but within normal limits for tone and prosody (chart review indicated the slurred speech was a result of a previous TBI). Intellectual abilities were estimated in the average range. Insight, judgment and impulse control were fair. 1. 311 (F32.9) Unspecified Depressive Disorder Impression/Plan: Recommend rescind IVC. Patient is psychiatrically clear. He no longer meets [place] G.S 122C IVC criteria. Patient denied suicidal/homicidal ideation, intent or plan. Patient is not considered a danger to himself or others at this time. No delusions or psychosis were observed. Patient has a support system in place, with his brother with whom he shares a residence. Patient was given resources for mobile crisis, outpatient providers and medication management. Provided education around the effect of sleep aids, Trazadone and benzodiazepines on individuals with traumatic brain injuries. Explained how research shows these medications could increase depression and impulsivity and trigger nightmares. Counseled patient he has a right to discuss this with medication providers and decline those types of prescriptions. Consulted with Dr. Dorman regarding the care and management of this patient.
--- NOTE | 2017-06-01 14:55 | PDOC DISCHARGE SUMMARY ---
General - Admit/Disc Date/PCP Admission Date/Primary Care Provider: 05/30/17 16:59 Discharge Date: 05/31/17 - Discharge Diagnosis (1) Overdose Is this a current diagnosis for this admission?: Yes (2) Depression Is this a current diagnosis for this admission?: Yes (3) Suicide attempt by drug ingestion Is this a current diagnosis for this admission?: Yes (4) Traumatic brain injury Is this a current diagnosis for this admission?: Yes - Additional Information Resuscitation Status: Full Code Home Medications: Gabapentin [Neurontin 400 mg Capsule] 800 mg PO Q8 05/27/17 Lisinopril [Prinivil 10 mg Tablet] 10 mg PO QHS 05/27/17 Sertraline HCl [Zoloft 50 mg Tablet] 100 mg PO QAM 05/27/17 Simvastatin [Zocor 20 mg Tablet] 20 mg PO QHS 05/27/17 History of Present Illness History of Present Illness: [place]O PUT[place] SR is a 51 year old male history of traumatic brain injury. Please refer to H&P dictated by Dr. Meade for complete details. Hospital Course Hospital Course: Is a 51-year-old male with a history of depression and traumatic brain injury and seizures who presented after a suicide attempt. Patient ingested several Ambien and will also send letter. He was initially admitted to the ICU and placed on IVC. Psychology did follow the patient during his hospitalization. Recommendations were made to stop off and start patient on Depakote 500 mg p.o. twice daily. Patient was continued on suicide precautions with sitter at bedside. Patient showed improvement in his overall demeanor and outlook on life. Patient stated that he wants to live and does not want to hurt himself. Patient is happy that he feels better no longer wants to herself. Patient IVC papers are rescinded as he did deny suicidal/homicidal ideation intent or plan and he was not considered a danger to himself at this time by psychology. Patient was given resources for mobile crisis outpatient providers and medication management. Patient was also educated on using sleep aids, trazodone and benzodiazepine individuals with traumatic brain injuries as this may increase his depression and impulsivity and trigger nightmares. Patient is currently doing well and will be discharged with a prescription for Depakote 500 mg p.o. twice daily Physical Exam Vital Signs: Temp Pulse Resp BP Pulse Ox 99.2 F 56 L 17 121/80 99 05/31/17 08:11 05/31/17 08:11 05/31/17 08:11 05/31/17 08:11 05/31/17 08:11 Intake & Output 05/31/17 06/01/17 06/02/17 06:59 06:59 06:59 Intake Total 2080 Output Total 350 Balance 1730 Weight 92 kg General appearance: PRESENT: no acute distress, well-developed, well-nourished Head exam: PRESENT: atraumatic, normocephalic Eye exam: PRESENT: conjunctiva pink, EOMI, PERRLA, other - strabimus of the right.. ABSENT: scleral icterus Ear exam: PRESENT: normal external ear exam Mouth exam: PRESENT: moist, tongue midline Neck exam: ABSENT: carotid bruit, JVD, lymphadenopathy, thyromegaly Respiratory exam: PRESENT: clear to auscultation neri. ABSENT: rales, rhonchi, wheezes Cardiovascular exam: PRESENT: RRR. ABSENT: diastolic murmur, rubs, systolic murmur Pulses: PRESENT: normal dorsalis pedis pul Vascular exam: PRESENT: normal capillary refill GI/Abdominal exam: PRESENT: normal bowel sounds, soft. ABSENT: distended, guarding, mass, organolmegaly, rebound, tenderness Rectal exam: PRESENT: deferred Extremities exam: PRESENT: full ROM. ABSENT: calf tenderness, clubbing, pedal edema Neurological exam: PRESENT: alert, awake, oriented to person, oriented to place , oriented to time, oriented to situation, CN II-XII grossly intact, other - slurred speech. ABSENT: motor sensory deficit Psychiatric exam: PRESENT: appropriate affect, normal mood. ABSENT: homicidal ideation, suicidal ideation Skin exam: PRESENT: dry, intact, warm. ABSENT: cyanosis, rash Results Impressions: Chest X-Ray 05/27/17 20:20 IMPRESSION: LOW LUNG VOLUMES. NO SIGNIFICANT RADIOGRAPHIC FINDING IN THE CHEST. Qualifiers PATEINT BEING DISCHARGED WITH ANY OF THE FOLLOWING DIAGNOSIS?: No Plan Time Spent: Greater than 30 Minutes
== END 2017-05-31 17:00 | disposition home or self-care (01) | DRG 917 ==
LOC: ER 13:08 → UNDOADMOB 19:51 → EH 19:51 → UNDOADMOB 05-28 09:34 → EH 05-28 10:10 → 5 05-28 20:28 → OBSVTOIN 05-30 16:59
PROVIDERS: ADMIT Internal Medicine; ATTEND Internal Medicine
DX: T42.6X2A Poisoning by other antiepileptic and sedative-hypnotic drugs, intentional self-harm, initial encounter (principal); G92 Toxic encephalopathy; Y92.009 Unspecified place in unspecified non-institutional (private) residence as the place of occurrence of the external cause; I10 Essential (primary) hypertension; E78.5 Hyperlipidemia, unspecified; F32.9 Major depressive disorder, single episode, unspecified; Z87.820 Personal history of traumatic brain injury; Z82.3 Family history of stroke; Z82.61 Family history of arthritis; Z82.49 Family history of ischemic heart disease and other diseases of the circulatory system; Z88.3 Allergy status to other anti-infective agents
CPT/HCPCS: 36415; 51701; 71045; 80048; 80053; 80307; 81001; 82803; 85025; 93005; 93010; 96361; 96374; 99285; G0378; J1650; J2310; J3411; J3490; J7030; J7050

== ENCOUNTER 2018-03-23 14:18 | Inpatient (IN) | payer MEDICARE, MEDICAID ==
--- NOTE | 2018-03-23 15:01 | RADIOLOGY REPORT (SQ) ---
EXAM DESCRIPTION: CT HEAD WITHOUT COMPLETED DATE/TIME: 03/23/2018 2:38 pm REASON FOR STUDY: bed 18 stroke alert COMPARISON: 05/15/2014 TECHNIQUE: Axial images acquired through the brain without intravenous contrast. Images reviewed wi th bone, brain and subdural windows. Additional sagittal and coronal reconstructions were generated. Images stored on PACS. All CT scanners at this facility use dose modulation, iterative reconstruction, and/or weight based d osing when appropriate to reduce radiation dose to as low as reasonably achievable (ALARA). [facility]: Dose Right [facility]: CareDose [facility]: Dose Right [facility]: Teradose 4D [facility]: [employer] RADIATION DOSE: mGy. LIMITATIONS: None. FINDINGS: VENTRICLES: Normal size and contour. CEREBRUM: No masses. No hemorrhage. No midline shift. No evidence for acute infarction. Normal gra y/white matter differentiation. No areas of low density in the white matter. CEREBELLUM: No masses. No hemorrhage. No alteration of density. No evidence for acute infarction. EXTRAAXIAL SPACES: No fluid collections. No masses. ORBITS AND GLOBE: No intra- or extraconal masses. Normal contour of globe without masses. CALVARIUM: Craniotomy changes on the right. Old facial fractures. PARANASAL SINUSES: No fluid or mucosal thickening. SOFT TISSUES: No mass or hematoma. OTHER: No other significant finding. IMPRESSION: Prior craniotomy, old facial fractures. No acute intracranial imaging findings. EVIDENCE OF ACUTE STROKE: NO. COMMENT: Findings were reported to Tammy Lopez at 1455 hours on this date. Quality ID # [id number]: Final reports with documentation of one or more dose reduction techniques (e.g., Au tomated exposure control, adjustment of the mA and/or kV according to patient size, use of iterative reconstruction technique) TECHNICAL DOCUMENTATION: JOB ID: [id number] [employer]- All Rights Reserved Reading location - IP/workstation name: [email or web address]
[2018-03-23 15:12] LABS: INTERNATIONAL RATION (INR) 1.18; PROTHROMBIN TIME 15.6 SEC (11.4-15.4)
[2018-03-23 15:14] LABS: ABSOLUTE BASOPHILS # (AUTO) 0.1 10^3/uL (0.0-0.2); ABSOLUTE EOSINOPHILS # (AUTO) 0.3 10^3/uL (0.0-0.6); ABSOLUTE MONOCYTES (AUTO) 1.2 10^3/uL (0.1-1.4); ABSOLUTE NEUT (AUTO) 12.2 10^3/uL (1.7-8.2); BASOPHILS % (AUTO) 0.4 % (0-2); EOSINOPHILS % (AUTO) 1.8 % (0-6); HEMATOCRIT 38.2 % (37.9-51.0); HEMOGLOBIN 12.8 g/dL (13.5-17.0); MEAN CORPUSCULAR HEMOGLOBIN 30.8 pg (27.0-33.4); MEAN CORPUSCULAR HGB CONC 33.5 g/dL (32.0-36.0); MEAN CORPUSCULAR VOLUME 92 fl (80-97); MONOCYTES % (AUTO) 6.9 % (3-13); PLATELET COUNT 138 10^3/uL (150-450); RED BLOOD COUNT 4.16 10^6/uL (4.35-5.55); RED CELL DISTRIBUTION WIDTH 13.7 % (11.5-14.0); SEGMENTED NEUTROPHILS % (AUTO) 72.9 % (42-78); TOTAL CELLS COUNTED % (AUTO) 100 %; WHITE BLOOD COUNT 16.8 10^3/uL (4.0-10.5)
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
--- NOTE | 2018-03-23 15:28 | RADIOLOGY REPORT (SQ) ---
EXAM DESCRIPTION: CHEST SINGLE VIEW COMPLETED DATE/TIME: 03/23/2018 3:17 pm REASON FOR STUDY: bed 18 stroke alert COMPARISON: 08/30/2011 EXAM PARAMETERS: NUMBER OF VIEWS: One view. TECHNIQUE: Single frontal radiographic view of the chest acquired. RADIATION DOSE: NA LIMITATIONS: None. FINDINGS: LUNGS AND PLEURA: Chronic elevation the right hemidiaphragm. Low lung volumes generally. Patchy opacification in the left base. MEDIASTINUM AND HILAR STRUCTURES: No masses. Contour normal. HEART AND VASCULAR STRUCTURES: Heart normal in size. Normal vasculature. BONES: No acute findings. HARDWARE: None in the chest. OTHER: No other significant finding. IMPRESSION: Left lower lobe pneumonia. TECHNICAL DOCUMENTATION: JOB ID: [id number] [employer]- All Rights Reserved Reading location - IP/workstation name: [email or web address]
[2018-03-23 15:29] LABS: ALANINE AMINOTRANSFERASE 24 U/L (21-72); ALBUMIN 3.6 g/dL (3.5-5.0); ALKALINE PHOSPHATASE 36 U/L (38-126); ANION GAP 13 (5-19); ASPARTATE AMINO TRANSFERASE 32 U/L (17-59); BILIRUBIN,DIRECT 0.3 mg/dL (0.0-0.4); BILIRUBIN,TOTAL 0.9 mg/dL (0.2-1.3); BLOOD UREA NITROGEN 19 mg/dL (7-20); CALCIUM 7.9 mg/dL (8.4-10.2); CARBON DIOXIDE 23 mmol/L (22-30); CHLORIDE 103 mmol/L (98-107); CREATINE KINASE 283 U/L (55-170); GLUCOSE 79 mg/dL (75-110); POTASSIUM 4.6 mmol/L (3.6-5.0); TOTAL PROTEIN 5.8 g/dL (6.3-8.2)
[2018-03-23 15:41] LABS: TROPONIN I < 0.012 ng/mL
[2018-03-23] MEDS ORDERED: NORMAL SALINE 1000 ML 1,000 ML IV ONE ×2 (15:55→16:27)
[2018-03-23] MEDS ORDERED: LEVOFLOXACIN 750 MG/D5W RTU 750 MG/150 ML RTUPB IV SCH (16:00)
[2018-03-23] MEDS ORDERED: IPRATROPIUM/ALBUTEROL 0.5-2.5 MG/3 ML AMPUL NEB PRN (16:10)
[2018-03-23] MEDS ORDERED: RINGERS SOLUTION,LACTATED 1,000 ML IV ONE ×2 (16:29)
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
[2018-03-23] MEDS ORDERED: LEVOFLOXACIN 500 MG/D5W RTU 500 MG/100 ML RTUPB IV SCH (17:00)
[2018-03-23 17:57] LABS: APPEARANCE,URINE SLIGHTLY-CLOUDY; BILIRUBIN,URINE NEGATIVE (NEGATIVE); COLOR,URINE AMBER; GLUCOSE, URINE NEGATIVE (NEGATIVE); KETONES,URINE TRACE mg/dL (NEGATIVE); LEUKOCYTE ESTERASE,URINE NEGATIVE (NEGATIVE); NITRITE,URINE NEGATIVE (NEGATIVE); PROTEIN,URINE 30 mg/dL (NEGATIVE); URINE SPECIFIC GRAVITY 1.025
[2018-03-23] MEDS: RINGERS SOLUTION,LACTATED 1,000 ML IV PRN ×2 (19:05→20:05)
[2018-03-23] MEDS: ACETAMINOPHEN 325 MG TABLET PO PRN (19:57)
[2018-03-23] MEDS ORDERED: GABAPENTIN 400 MG CAPSULE PO ONE (20:00)
[2018-03-23] MEDS: HEPARIN SOD (PORCINE) 5,000 UNIT/ML 1 ML SYRINGE SUBCUT SCH (21:24)
[2018-03-24] MEDS: ACETAMINOPHEN 325 MG TABLET PO PRN ×4 (00:08→23:06)
[2018-03-24] MEDS: RINGERS SOLUTION,LACTATED 1,000 ML IV PRN ×3 (02:47→22:18)
[2018-03-24 04:04] LABS: ABSOLUTE BASOPHILS # (AUTO) 0.1 10^3/uL (0.0-0.2); ABSOLUTE EOSINOPHILS # (AUTO) 0.4 10^3/uL (0.0-0.6); ABSOLUTE MONOCYTES (AUTO) 1.1 10^3/uL (0.1-1.4); ABSOLUTE NEUT (AUTO) 6.8 10^3/uL (1.7-8.2); BASOPHILS % (AUTO) 0.6 % (0-2); EOSINOPHILS % (AUTO) 3.6 % (0-6); HEMATOCRIT 37.9 % (37.9-51.0); HEMOGLOBIN 12.8 g/dL (13.5-17.0); LYMPHOCYTES % (AUTO) 19.8 % (13-45); MEAN CORPUSCULAR HEMOGLOBIN 30.6 pg (27.0-33.4); MEAN CORPUSCULAR HGB CONC 33.7 g/dL (32.0-36.0); MEAN CORPUSCULAR VOLUME 91 fl (80-97); MONOCYTES % (AUTO) 10.4 % (3-13); PLATELET COUNT 101 10^3/uL (150-450); RED BLOOD COUNT 4.17 10^6/uL (4.35-5.55); RED CELL DISTRIBUTION WIDTH 13.5 % (11.5-14.0); SEGMENTED NEUTROPHILS % (AUTO) 65.6 % (42-78); TOTAL CELLS COUNTED % (AUTO) 100 %; WHITE BLOOD COUNT 10.3 10^3/uL (4.0-10.5)
[2018-03-24 04:24] LABS: ANION GAP 9 (5-19); BLOOD UREA NITROGEN 21 mg/dL (7-20); CALCIUM 8.4 mg/dL (8.4-10.2); CARBON DIOXIDE 25 mmol/L (22-30); CHLORIDE 107 mmol/L (98-107); GLUCOSE 94 mg/dL (75-110); PHOSPHORUS 4.8 mg/dL (2.5-4.5); POTASSIUM 4.5 mmol/L (3.6-5.0)
[2018-03-24] MEDS: LANSOPRAZOLE 30 MG TAB.RAP.DR PO SCH (05:16)
[2018-03-24] MEDS: HEPARIN SOD (PORCINE) 5,000 UNIT/ML 1 ML SYRINGE SUBCUT SCH ×3 (05:36→22:10)
--- NOTE | 2018-03-24 08:25 | EKG REPORT ---
SEVERITY:- NORMAL ECG - SINUS RHYTHM : Confirmed by: Clover Anderson MD 24-Mar-2018 08:25:11
--- NOTE | 2018-03-24 09:11 | PDOC PROGRESS REPORT ---
Subjective Progress Note for:: 03/24/18 Subjective:: Patient comfortable no new complaints. Patient had 4500 mL's in 2000 out. Creatinine down to 2.5 map is 72. Saturations over 90% Reason For Visit: LOWER LOBE PNEUMONIA,SEPSIS Physical Exam Vital Signs: Temp Pulse Resp BP Pulse Ox 98.8 F 79 20 90/63 L 98 03/24/18 08:00 03/24/18 08:46 03/24/18 08:46 03/24/18 08:00 03/24/18 08:46 Intake & Output 03/23/18 03/24/18 03/25/18 06:59 06:59 06:59 Intake Total 3575 Output Total 2025 500 Balance 1550 -500 Weight 97.9 kg General appearance: PRESENT: no acute distress, well-developed, well-nourished Eye exam: PRESENT: conjunctiva pink, EOMI, PERRLA. ABSENT: scleral icterus Neck exam: ABSENT: carotid bruit, JVD, lymphadenopathy, thyromegaly Respiratory exam: PRESENT: clear to auscultation neri, crackles, rales. ABSENT: rhonchi, wheezes Cardiovascular exam: PRESENT: RRR. ABSENT: diastolic murmur, rubs, systolic murmur GI/Abdominal exam: PRESENT: normal bowel sounds, soft. ABSENT: distended, guarding, mass, organolmegaly, rebound, tenderness Extremities exam: PRESENT: full ROM. ABSENT: calf tenderness, clubbing, pedal edema Neurological exam: PRESENT: alert, awake, oriented to person, oriented to place , oriented to time, oriented to situation, CN II-XII grossly intact, other - Slurred speech due to traumatic brain injury.. ABSENT: motor sensory deficit Results Laboratory Results: 03/24/18 03:55 03/24/18 03:55 03/23/18 03/23/18 03/24/18 17:45 21:00 03:55 WBC 10.3 RBC 4.17 L Hgb 12.8 L Hct 37.9 MCV 91 MCH 30.6 MCHC 33.7 RDW 13.5 Plt Count 101 L Seg Neutrophils % 65.6 Lymphocytes % 19.8 Monocytes % 10.4 Eosinophils % 3.6 Basophils % 0.6 Absolute Neutrophils 6.8 Absolute Lymphocytes 2.0 Absolute Monocytes 1.1 Absolute Eosinophils 0.4 Absolute Basophils 0.1 Sodium Potassium Chloride Carbon Dioxide Anion Gap BUN Creatinine Est GFR ( Amer) Est GFR (Non-Af Amer) Glucose Lactic Acid 1.8 Calcium Phosphorus Magnesium TSH Urine Color MAURY Urine Appearance SLIGHTLY-CLOUDY Urine pH 5.0 Ur Specific [place] 1.025 Urine Protein 30 H Urine Glucose (UA) NEGATIVE Urine Ketones TRACE H Urine Blood SMALL H Urine Nitrite NEGATIVE Ur Leukocyte Esterase NEGATIVE Urine WBC (Auto) 8 Urine RBC (Auto) 26 03/24/18 03/24/18 03:55 03:55 WBC RBC Hgb Hct MCV MCH MCHC RDW Plt Count Seg Neutrophils % Lymphocytes % Monocytes % Eosinophils % Basophils % Absolute Neutrophils Absolute Lymphocytes Absolute Monocytes Absolute Eosinophils Absolute Basophils Sodium 141.0 Potassium 4.5 Chloride 107 Carbon Dioxide 25 Anion Gap 9 BUN 21 H Creatinine 2.50 H Est GFR ( Amer) 33 L Est GFR (Non-Af Amer) 27 L Glucose 94 Lactic Acid Calcium 8.4 Phosphorus 4.8 H Magnesium 1.8 TSH 2.10 Urine Color Urine Appearance Urine pH Ur Specific [place] Urine Protein Urine Glucose (UA) Urine Ketones Urine Blood Urine Nitrite Ur Leukocyte Esterase Urine WBC (Auto) Urine RBC (Auto) Impressions: Chest X-Ray 03/23/18 14:25 IMPRESSION: Left lower lobe pneumonia. Head CT 03/23/18 14:25 IMPRESSION: Prior craniotomy, old facial fractures. No acute intracranial imaging findings. EVIDENCE OF ACUTE STROKE: NO. Assessment & Plan - Diagnosis (1) Sepsis Qualifiers: Sepsis type: sepsis due to unspecified organism Qualified Code(s): A41.9 - Sepsis, unspecified organism Is this a current diagnosis for this admission?: Yes Plan: Patient maintaining low normal blood pressure. Lactated Ringer's at 150 mL's per hour. Continue current infusion rate BMP daily x3. Obtain renal ultrasound due to the acute renal failure (2) Pneumonia Qualifiers: Pneumonia type: due to unspecified organism Laterality: left Lung location: lower lobe of lung Qualified Code(s): J18.1 - Lobar pneumonia, unspecified organism Is this a current diagnosis for this admission?: Yes Plan: IV Levaquin for community-acquired pneumonia. Blood cultures obtained. Will admit patient to the medical intensive care unit (3) Hypertension Is this a current diagnosis for this admission?: Yes Plan: Currently hypotensive hold lisinopril. Will obtain a a.m. and p.m. cortisol due to the hypotension which is likely secondary to the infection coupled with volume depletion (4) Hyperlipidemia Is this a current diagnosis for this admission?: Yes Plan: Hold statin at this time (5) Depression Is this a current diagnosis for this admission?: Yes Plan: Hold Celexa (6) Traumatic brain injury Is this a current diagnosis for this admission?: Yes Plan: Patient lives alone. Was noted by people who check on him to be walking into nguyen and lethargic which may be secondary to his underlying infection and hypotension. He appears to be able to answer questions intact will have discharge planning assessment for discharge needs. Resume Neurontin 800 mg every 8 hours hold opioids. Patient on valproic acid unclear if this is for behavioral ruth secondary to brain traumatic injury as patient denies seizure disorder (7) Acute renal failure Is this a current diagnosis for this admission?: Yes Plan: Creatinine 2.5. Baseline 0.9 continue hydration renal ultrasound today BMP every morning x3 obtain urinary sodium urinary protein urinary creatinine
[2018-03-24] MEDS ORDERED: (PENDING PHARMACY ID) (Divalproex Sodium [Depakote] 500 MG) PO SCH (10:00)
[2018-03-24] MEDS: DIVALPROEX SODIUM 250 MG TABLET.DR PO SCH ×2 (10:59→22:09)
[2018-03-24] MEDS: OXYCODONE HCL IR 5 MG TABLET PO PRN ×2 (12:50→20:18)
[2018-03-24] MEDS: GABAPENTIN 400 MG CAPSULE PO SCH ×2 (14:38→22:10)
[2018-03-24 15:19] LABS: URINE CREATININE 47.6 mg/dL (22-328); URINE PROTEIN 14.6 mg/dL (<12)
[2018-03-24] MEDS: ONDANSETRON HCL INJ/PF 4 MG/2 ML SDV IV PRN (18:54)
--- NOTE | 2018-03-24 20:50 | RADIOLOGY REPORT (SQ) ---
EXAM DESCRIPTION: U/S RETROPERITON (RENAL/AORTA) COMPLETED DATE/TIME: 03/24/2018 8:38 pm REASON FOR STUDY: Acute renal failure COMPARISON: None. TECHNIQUE: Dynamic and static grayscale images acquired of the kidneys and bladder and recorded on P ACS. Additional selected color Doppler and spectral images recorded. LIMITATIONS: None. FINDINGS: RIGHT KIDNEY: Normal size. Normal echogenicity. No obvious hydronephrosis. LEFT KIDNEY: Normal size. Normal echogenicity. Nonobstructing calculus. No hydronephrosis. BLADDER: Myers catheter. OTHER FINDINGS: No other significant finding. IMPRESSION: Nonobstructive left nephrolithiasis. No hydronephrosis. TECHNICAL DOCUMENTATION: JOB ID: [id number] [employer]- All Rights Reserved Reading location - IP/workstation name: [email or web address]
[2018-03-24] MEDS: SIMVASTATIN 10 MG TABLET PO SCH (22:11)
[2018-03-25] MEDS: OXYCODONE HCL IR 5 MG TABLET PO PRN ×3 (01:57→22:17)
[2018-03-25] MEDS: RINGERS SOLUTION,LACTATED 1,000 ML IV PRN ×3 (05:10→22:25)
[2018-03-25] MEDS: GABAPENTIN 400 MG CAPSULE PO SCH ×3 (05:11→22:18)
[2018-03-25] MEDS: HEPARIN SOD (PORCINE) 5,000 UNIT/ML 1 ML SYRINGE SUBCUT SCH ×3 (05:12→22:19)
[2018-03-25] MEDS: LANSOPRAZOLE 30 MG TAB.RAP.DR PO SCH (05:12)
[2018-03-25 05:30] LABS: ABSOLUTE EOSINOPHILS # (AUTO) 0.2 10^3/uL (0.0-0.6); ABSOLUTE LYMPHOCYTES (AUTO) 1.2 10^3/uL (0.5-4.7); ABSOLUTE MONOCYTES (AUTO) 0.6 10^3/uL (0.1-1.4); ABSOLUTE NEUT (AUTO) 5.4 10^3/uL (1.7-8.2); BASOPHILS % (AUTO) 0.4 % (0-2); EOSINOPHILS % (AUTO) 3.1 % (0-6); HEMATOCRIT 36.3 % (37.9-51.0); HEMOGLOBIN 12.3 g/dL (13.5-17.0); LYMPHOCYTES % (AUTO) 16.6 % (13-45); MEAN CORPUSCULAR HEMOGLOBIN 30.7 pg (27.0-33.4); MEAN CORPUSCULAR HGB CONC 33.9 g/dL (32.0-36.0); MEAN CORPUSCULAR VOLUME 90 fl (80-97); MONOCYTES % (AUTO) 8.1 % (3-13); RED BLOOD COUNT 4.02 10^6/uL (4.35-5.55); RED CELL DISTRIBUTION WIDTH 13.8 % (11.5-14.0); SEGMENTED NEUTROPHILS % (AUTO) 71.8 % (42-78); TOTAL CELLS COUNTED % (AUTO) 100 %; WHITE BLOOD COUNT 7.5 10^3/uL (4.0-10.5)
[2018-03-25 05:37] LABS: PLATELET COUNT 88 10^3/uL (150-450)
[2018-03-25 05:46] LABS: ANION GAP 9 (5-19); BLOOD UREA NITROGEN 14 mg/dL (7-20); CALCIUM 8.8 mg/dL (8.4-10.2); CARBON DIOXIDE 28 mmol/L (22-30); CHLORIDE 107 mmol/L (98-107); GLUCOSE 101 mg/dL (75-110); POTASSIUM 4.7 mmol/L (3.6-5.0); SODIUM 143.7 mmol/L (137-145)
[2018-03-25] MEDS: ONDANSETRON HCL INJ/PF 4 MG/2 ML SDV IV PRN ×2 (10:01→22:21)
[2018-03-25] MEDS: DIVALPROEX SODIUM 250 MG TABLET.DR PO SCH ×2 (10:02→22:21)
[2018-03-25] MEDS ORDERED: VANCOMYCIN HCL 0 MG in DEXTROSE 5%-WATER 250 ML IV NR (14:15)
--- NOTE | 2018-03-25 14:17 | PDOC PROGRESS REPORT ---
Subjective Progress Note for:: 03/25/18 Subjective:: Mr. Bender was admitted for sepsis with a pneumonia. He is resting comfortably this morning. He is asking when he can leave the hospital. He is also frustrated by having to use the bedpan. His breathing appears quite comfortable. Reason For Visit: LOWER LOBE PNEUMONIA,SEPSIS Physical Exam Vital Signs: Temp Pulse Resp BP Pulse Ox 98.4 F 68 20 118/68 93 03/25/18 11:41 03/25/18 11:41 03/25/18 11:41 03/25/18 11:41 03/25/18 11:41 Intake & Output 03/24/18 03/25/18 03/26/18 06:59 06:59 06:59 Intake Total 3575 3000 1000 Output Total 2025 3800 Balance 1550 -800 1000 Weight 97.9 kg 99 kg General appearance: PRESENT: no acute distress, cooperative, well-developed, well-nourished Head exam: PRESENT: atraumatic, normocephalic Eye exam: PRESENT: conjunctiva pink, EOMI. ABSENT: scleral icterus Ear exam: PRESENT: normal external ear exam Mouth exam: PRESENT: moist, neck supple Neck exam: ABSENT: carotid bruit, lymphadenopathy, tenderness Respiratory exam: PRESENT: clear to auscultation neri, unlabored. ABSENT: decreased breath sounds, rales, rhonchi, wheezes Cardiovascular exam: PRESENT: RRR, +S1, +S2. ABSENT: diastolic murmur, systolic murmur Pulses: PRESENT: normal radial pulses GI/Abdominal exam: PRESENT: normal bowel sounds, soft. 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 ABSENT: petechiae, rash Results Laboratory Results: 03/25/18 04:26 03/25/18 04:26 03/25/18 03/25/18 04:26 04:26 WBC 7.5 RBC 4.02 L Hgb 12.3 L Hct 36.3 L MCV 90 MCH 30.7 MCHC 33.9 RDW 13.8 Plt Count 88 L Seg Neutrophils % 71.8 Lymphocytes % 16.6 Monocytes % 8.1 Eosinophils % 3.1 Basophils % 0.4 Absolute Neutrophils 5.4 Absolute Lymphocytes 1.2 Absolute Monocytes 0.6 Absolute Eosinophils 0.2 Absolute Basophils 0.0 Sodium 143.7 Potassium 4.7 Chloride 107 Carbon Dioxide 28 Anion Gap 9 BUN 14 Creatinine 1.16 Est GFR ( Amer) > 60 Est GFR (Non-Af Amer) > 60 Glucose 101 Calcium 8.8 Phosphorus 4.0 Magnesium 2.0 Impressions: Chest X-Ray 03/23/18 14:25 IMPRESSION: Left lower lobe pneumonia. Head CT 03/23/18 14:25 IMPRESSION: Prior craniotomy, old facial fractures. No acute intracranial imaging findings. EVIDENCE OF ACUTE STROKE: NO. Renal Ultrasound 03/24/18 00:00 IMPRESSION: Nonobstructive left nephrolithiasis. No hydronephrosis. Assessment & Plan - Diagnosis (1) Sepsis Qualifiers: Sepsis type: sepsis due to unspecified organism Qualified Code(s): A41.9 - Sepsis, unspecified organism Is this a current diagnosis for this admission?: Yes Plan: The patient is in IMCU. His blood pressure has been stable. His white blood cell count is now normal. He continues on levofloxacin. A blood culture is growing gram-positive cocci from one bottle at 48 hours. I will add vancomycin until a final culture result is available. If this is the only bottle that is positive then it is likely a contaminant. Hopefully will have final microbiology results by tomorrow. The patient is weak from his critical illness. Now that he is out of the ICU I have asked physical therapy to assess him and see if his gait is stable. (2) Pneumonia Qualifiers: Pneumonia type: due to unspecified organism Laterality: left Lung location: lower lobe of lung Qualified Code(s): J18.1 - Lobar pneumonia, unspecified organism Is this a current diagnosis for this admission?: Yes Plan: This is a community-acquired pneumonia. The patient remains on levofloxacin. If the final blood culture reveals possible contaminant then tomorrow we should be able to transition the patient to oral antibiotic therapy. (3) Acute renal failure Is this a current diagnosis for this admission?: Yes Plan: The patient's serum creatinine is much better. Renal ultrasound revealed nonobstructing nephrolithiasis. His oral fluid intake is limited and so I will continue his IV fluids for today. We will continue to monitor his renal function. (4) Hypertension Is this a current diagnosis for this admission?: Yes Plan: The patient was hypotensive on admission. He has received IV fluids and his blood pressure in fact is normal. I am still holding his lisinopril for an additional day not only because it might induce hypotension but also I would like to see his renal function stable for another day before adding back his lisinopril. (5) Depression Is this a current diagnosis for this admission?: Yes Plan: Because he is on an oral diet I will resume his sertraline 100 mg daily. (6) Hyperlipidemia Is this a current diagnosis for this admission?: Yes Plan: He is on oral diet so we will continue his simvastatin 20 mg daily. - Time Time Spent with patient: 25-34 minutes Medications reviewed and adjusted accordingly: Yes Anticipated discharge: Home
[2018-03-25] MEDS: VANCOMYCIN HCL 1,500 MG in DEXTROSE 5%-WATER 250 ML IV SCH (17:15)
[2018-03-25] MEDS: LEVOFLOXACIN 500 MG/D5W RTU 500 MG/100 ML RTUPB IV SCH (17:16)
[2018-03-25] MEDS ORDERED: LEVOFLOXACIN 500 MG/D5W RTU 500 MG/100 ML RTUPB IV SCH (18:00)
[2018-03-25] MEDS: SIMVASTATIN 10 MG TABLET PO SCH (22:17)
[2018-03-25] MEDS: ACETAMINOPHEN 325 MG TABLET PO PRN (23:19)
[2018-03-26 05:20] LABS: ABSOLUTE EOSINOPHILS # (AUTO) 0.3 10^3/uL (0.0-0.6); ABSOLUTE LYMPHOCYTES (AUTO) 1.3 10^3/uL (0.5-4.7); ABSOLUTE MONOCYTES (AUTO) 0.5 10^3/uL (0.1-1.4); ABSOLUTE NEUT (AUTO) 3.5 10^3/uL (1.7-8.2); BASOPHILS % (AUTO) 0.4 % (0-2); EOSINOPHILS % (AUTO) 5.3 % (0-6); LYMPHOCYTES % (AUTO) 23.1 % (13-45); MEAN CORPUSCULAR HEMOGLOBIN 30.3 pg (27.0-33.4); MEAN CORPUSCULAR HGB CONC 33.4 g/dL (32.0-36.0); MEAN CORPUSCULAR VOLUME 91 fl (80-97); MONOCYTES % (AUTO) 9.4 % (3-13); PLATELET COUNT 101 10^3/uL (150-450); RED BLOOD COUNT 3.97 10^6/uL (4.35-5.55); RED CELL DISTRIBUTION WIDTH 13.4 % (11.5-14.0); SEGMENTED NEUTROPHILS % (AUTO) 61.8 % (42-78); TOTAL CELLS COUNTED % (AUTO) 100 %; WHITE BLOOD COUNT 5.6 10^3/uL (4.0-10.5)
[2018-03-26 05:47] LABS: ANION GAP 6 (5-19); BLOOD UREA NITROGEN 8 mg/dL (7-20); CALCIUM 8.6 mg/dL (8.4-10.2); CARBON DIOXIDE 32 mmol/L (22-30); CHLORIDE 105 mmol/L (98-107); GLUCOSE 94 mg/dL (75-110); PHOSPHORUS 4.2 mg/dL (2.5-4.5); POTASSIUM 4.5 mmol/L (3.6-5.0); SODIUM 142.5 mmol/L (137-145)
[2018-03-26] MEDS: RINGERS SOLUTION,LACTATED 1,000 ML IV PRN ×2 (06:32→15:02)
[2018-03-26] MEDS: VANCOMYCIN HCL 1,500 MG in DEXTROSE 5%-WATER 250 ML IV SCH ×2 (06:33→16:32)
[2018-03-26] MEDS: GABAPENTIN 400 MG CAPSULE PO SCH ×3 (06:35→21:04)
[2018-03-26] MEDS: HEPARIN SOD (PORCINE) 5,000 UNIT/ML 1 ML SYRINGE SUBCUT SCH ×3 (06:36→21:07)
[2018-03-26] MEDS: LANSOPRAZOLE 30 MG TAB.RAP.DR PO SCH (06:36)
[2018-03-26] MEDS: OXYCODONE HCL IR 5 MG TABLET PO PRN ×3 (06:40→21:03)
[2018-03-26] MEDS: SERTRALINE HCL 50 MG TABLET PO SCH (10:15)
[2018-03-26] MEDS: DIVALPROEX SODIUM 250 MG TABLET.DR PO SCH ×2 (10:15→21:18)
[2018-03-26] MEDS: ONDANSETRON HCL INJ/PF 4 MG/2 ML SDV IV PRN ×2 (16:42→21:05)
[2018-03-26] MEDS: LEVOFLOXACIN 500 MG/D5W RTU 500 MG/100 ML RTUPB IV SCH (18:39)
--- NOTE | 2018-03-26 18:56 | PDOC PROGRESS REPORT ---
Subjective Progress Note for:: 03/26/18 Subjective:: The patient was sleeping but awakens easily. He had questions for me but he cannot remember what the questions were. He is anxious for home. He is otherwise feeling good. Reason For Visit: LOWER LOBE PNEUMONIA,SEPSIS Physical Exam Vital Signs: Temp Pulse Resp BP Pulse Ox 97.6 F 67 20 139/93 H 96 03/26/18 15:55 03/26/18 15:55 03/26/18 15:55 03/26/18 15:55 03/26/18 15:55 Intake & Output 03/25/18 03/26/18 03/27/18 06:59 06:59 06:59 Intake Total 3000 3764 1664 Output Total 3800 3825 1900 Balance -800 -61 -236 Weight 99 kg 98 kg General appearance: PRESENT: no acute distress, cooperative, well-developed Eye exam: PRESENT: conjunctiva pink, EOMI. ABSENT: periorbital swelling, scleral icterus Neck exam: ABSENT: carotid bruit, JVD, lymphadenopathy Respiratory exam: PRESENT: clear to auscultation neri, symmetrical, unlabored. ABSENT: rales, rhonchi, wheezes Cardiovascular exam: PRESENT: RRR, +S1, +S2 GI/Abdominal exam: PRESENT: normal bowel sounds, soft. 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 Psychiatric exam: PRESENT: appropriate affect, normal mood Results Laboratory Results: 03/26/18 04:47 03/26/18 04:47 03/26/18 03/26/18 04:47 04:47 WBC 5.6 RBC 3.97 L Hgb 12.0 L Hct 36.0 L MCV 91 MCH 30.3 MCHC 33.4 RDW 13.4 Plt Count 101 L Seg Neutrophils % 61.8 Lymphocytes % 23.1 Monocytes % 9.4 Eosinophils % 5.3 Basophils % 0.4 Absolute Neutrophils 3.5 Absolute Lymphocytes 1.3 Absolute Monocytes 0.5 Absolute Eosinophils 0.3 Absolute Basophils 0.0 Sodium 142.5 Potassium 4.5 Chloride 105 Carbon Dioxide 32 H Anion Gap 6 BUN 8 Creatinine 0.92 Est GFR ( Amer) > 60 Est GFR (Non-Af Amer) > 60 Glucose 94 Calcium 8.6 Phosphorus 4.2 Impressions: Chest X-Ray 03/23/18 14:25 IMPRESSION: Left lower lobe pneumonia. Head CT 03/23/18 14:25 IMPRESSION: Prior craniotomy, old facial fractures. No acute intracranial imaging findings. EVIDENCE OF ACUTE STROKE: NO. Renal Ultrasound 03/24/18 00:00 IMPRESSION: Nonobstructive left nephrolithiasis. No hydronephrosis. Assessment & Plan - Diagnosis (1) Sepsis Qualifiers: Sepsis type: sepsis due to unspecified organism Qualified Code(s): A41.9 - Sepsis, unspecified organism Is this a current diagnosis for this admission?: Yes Plan: The patient is in IMCU. His blood pressure has been stable. His white blood cell count is now normal. He continues on levofloxacin. A blood culture is growing gram-positive cocci from one bottle at 48 hours. I will add vancomycin until a final culture result is available. If this is the only bottle that is positive then it is likely a contaminant. Hopefully will have final microbiology results by tomorrow. The patient is weak from his critical illness. Now that he is out of the ICU I have asked physical therapy to assess him and see if his gait is stable. March 26, 2018-the patient did have one set of blood cultures positive after 3 days with gram-positive cocci. The other set is negative so far. Is difficult to know if these in fact are clinically relevant. Typically with sepsis and positive blood cultures they would turn positive within the first 24 hours. We will continue his antibiotics. (2) Pneumonia Qualifiers: Pneumonia type: due to unspecified organism Laterality: left Lung location: lower lobe of lung Qualified Code(s): J18.1 - Lobar pneumonia, unspecified organism Is this a current diagnosis for this admission?: Yes Plan: This is a community-acquired pneumonia. The patient remains on levofloxacin. If the final blood culture reveals possible contaminant then tomorrow we should be able to transition the patient to oral antibiotic therapy. March 26, 2018-patient's breathing is quite comfortable. The pneumonia seems to be resolved. Unfortunately no sputum specimen was submitted therefore the exact bacterial etiology of the pneumonia cannot be specified. He does have one set of blood cultures positive for gram-positive cocci and so this would be the most likely causative bacteria. (3) Acute renal failure Qualifiers: Acute renal failure type: unspecified Qualified Code(s): N17.9 - Acute kidney failure, unspecified Is this a current diagnosis for this admission?: Yes Plan: The patient's serum creatinine is much better. Renal ultrasound revealed nonobstructing nephrolithiasis. His oral fluid intake is limited and so I will continue his IV fluids for today. We will continue to monitor his renal function. March 26, 2018-renal failure resolved. With an underlying diagnosis of sepsis acute tubular necrosis is a possibility but it is highly unlikely due to the extremely rapid recovery of kidney function. It may be due to hypovolemia but the exact etiology is difficult to specify. (4) Hypertension Qualifiers: Hypertension type: essential hypertension Qualified Code(s): I10 - Essential (primary) hypertension Is this a current diagnosis for this admission?: Yes Plan: The patient was hypotensive on admission. He has received IV fluids and his blood pressure in fact is normal. I am still holding his lisinopril for an additional day not only because it might induce hypotension but also I would like to see his renal function stable for another day before adding back his lisinopril. March 26, 2018-I will restart the patient's lisinopril today. Based on review of his blood pressures he should tolerate resumption of the medication without difficulty. (5) Depression Is this a current diagnosis for this admission?: Yes Plan: Because he is on an oral diet I will resume his sertraline 100 mg daily. March 26, 2018-continue sertraline as noted above. (6) Hyperlipidemia Qualifiers: Hyperlipidemia type: mixed hyperlipidemia Qualified Code(s): E78.2 - Mixed hyperlipidemia Is this a current diagnosis for this admission?: Yes Plan: He is on oral diet so we will continue his simvastatin 20 mg daily. March 26, 2018-continue simvastatin. (7) Traumatic brain injury Is this a current diagnosis for this admission?: Yes Plan: The patient's CT scan shows a history of traumatic brain injury. This is the etiology for his dysarthria. Is likely also the etiology for poor memory. The combination of infection and his history of TBI were the most likely etiologies for his altered mental state (metabolic encephalopathy). He does appear to be back at baseline. - Time Time Spent with patient: 25-34 minutes Medications reviewed and adjusted accordingly: Yes Anticipated discharge: Home
[2018-03-26] MEDS: SIMVASTATIN 10 MG TABLET PO SCH (21:05)
[2018-03-27] MEDS: RINGERS SOLUTION,LACTATED 1,000 ML IV PRN ×2 (01:35→10:04)
[2018-03-27] MEDS: VANCOMYCIN HCL 1,500 MG in DEXTROSE 5%-WATER 250 ML IV SCH ×2 (03:39→15:36)
[2018-03-27] MEDS: OXYCODONE HCL IR 5 MG TABLET PO PRN ×3 (04:56→21:01)
[2018-03-27] MEDS: HEPARIN SOD (PORCINE) 5,000 UNIT/ML 1 ML SYRINGE SUBCUT SCH ×3 (06:24→21:00)
[2018-03-27] MEDS: GABAPENTIN 400 MG CAPSULE PO SCH ×3 (06:26→21:01)
[2018-03-27] MEDS: LANSOPRAZOLE 30 MG TAB.RAP.DR PO SCH (06:26)
[2018-03-27] MEDS: ACETAMINOPHEN 325 MG TABLET PO PRN ×2 (08:40→21:12)
[2018-03-27] MEDS ORDERED: LISINOPRIL 10 MG TABLET PO SCH (10:00)
[2018-03-27] MEDS: DIVALPROEX SODIUM 250 MG TABLET.DR PO SCH ×2 (10:04→21:01)
[2018-03-27] MEDS: SERTRALINE HCL 50 MG TABLET PO SCH (10:04)
[2018-03-27 16:01] LABS: VANCOMYCIN,TROUGH 13.4 ug/mL (5.0-20.0)
[2018-03-27] MEDS: LEVOFLOXACIN 500 MG/D5W RTU 500 MG/100 ML RTUPB IV SCH (17:20)
--- NOTE | 2018-03-27 19:55 | PDOC PROGRESS REPORT ---
Subjective Progress Note for:: 03/27/18 Subjective:: The patient has visitors from his [facility]. He is feeling quite good this evening. He is enjoying their company. Reason For Visit: LOWER LOBE PNEUMONIA,SEPSIS Physical Exam Vital Signs: Temp Pulse Resp BP Pulse Ox 97.9 F 63 18 93/53 L 94 03/27/18 15:46 03/27/18 19:00 03/27/18 15:46 03/27/18 15:46 03/27/18 18:57 Intake & Output 03/26/18 03/27/18 03/28/18 06:59 06:59 05:59 Intake Total 3764 3469 3237 Output Total 3824 6290 1900 Balance -61 -1231 1337 Weight 98 kg 98.7 kg General appearance: PRESENT: no acute distress, cooperative, well-developed Eye exam: PRESENT: conjunctiva pink, EOMI. ABSENT: scleral icterus Ear exam: PRESENT: normal external ear exam Mouth exam: PRESENT: moist, neck supple, tongue midline Neck exam: ABSENT: carotid bruit, JVD, lymphadenopathy Respiratory exam: PRESENT: clear to auscultation neri, symmetrical, unlabored. ABSENT: rales, rhonchi, wheezes Cardiovascular exam: PRESENT: RRR, +S1, +S2 Pulses: PRESENT: normal radial pulses, normal dorsalis pedis pul GI/Abdominal exam: PRESENT: normal bowel sounds, soft. ABSENT: distended, guarding, tenderness Extremities exam: ABSENT: calf tenderness, pedal edema Musculoskeletal exam: PRESENT: ambulatory Neurological exam: PRESENT: alert, awake, oriented to person, oriented to place , oriented to situation Psychiatric exam: PRESENT: appropriate affect, normal mood Skin exam: PRESENT: dry, intact, warm. ABSENT: cyanosis, rash Results Laboratory Results: 03/26/18 04:47 03/26/18 04:47 Impressions: Chest X-Ray 03/23/18 14:25 IMPRESSION: Left lower lobe pneumonia. Head CT 03/23/18 14:25 IMPRESSION: Prior craniotomy, old facial fractures. No acute intracranial imaging findings. EVIDENCE OF ACUTE STROKE: NO. Renal Ultrasound 03/24/18 00:00 IMPRESSION: Nonobstructive left nephrolithiasis. No hydronephrosis. Assessment & Plan - Diagnosis (1) Sepsis Qualifiers: Sepsis type: sepsis due to unspecified organism Qualified Code(s): A41.9 - Sepsis, unspecified organism Is this a current diagnosis for this admission?: Yes Plan: The patient is in IMCU. His blood pressure has been stable. His white blood cell count is now normal. He continues on levofloxacin. A blood culture is growing gram-positive cocci from one bottle at 48 hours. I will add vancomycin until a final culture result is available. If this is the only bottle that is positive then it is likely a contaminant. Hopefully will have final microbiology results by tomorrow. The patient is weak from his critical illness. Now that he is out of the ICU I have asked physical therapy to assess him and see if his gait is stable. March 26, 2018-the patient did have one set of blood cultures positive after 3 days with gram-positive cocci. The other set is negative so far. Is difficult to know if these in fact are clinically relevant. Typically with sepsis and positive blood cultures they would turn positive within the first 24 hours. We will continue his antibiotics. 03/27/2018-sepsis resolved. Complete antibiotic therapy as ordered. (2) Pneumonia Qualifiers: Pneumonia type: due to unspecified organism Laterality: left Lung location: lower lobe of lung Qualified Code(s): J18.1 - Lobar pneumonia, unspecified organism Is this a current diagnosis for this admission?: Yes Plan: This is a community-acquired pneumonia. The patient remains on levofloxacin. If the final blood culture reveals possible contaminant then tomorrow we should be able to transition the patient to oral antibiotic therapy. March 26, 2018-patient's breathing is quite comfortable. The pneumonia seems to be resolved. Unfortunately no sputum specimen was submitted therefore the exact bacterial etiology of the pneumonia cannot be specified. He does have one set of blood cultures positive for gram-positive cocci and so this would be the most likely causative bacteria. 03/27/2018-pneumonia resolved. Complete antibiotic therapy as ordered. (3) Acute renal failure Qualifiers: Acute renal failure type: unspecified Qualified Code(s): N17.9 - Acute kidney failure, unspecified Is this a current diagnosis for this admission?: Yes Plan: The patient's serum creatinine is much better. Renal ultrasound revealed nonobstructing nephrolithiasis. His oral fluid intake is limited and so I will continue his IV fluids for today. We will continue to monitor his renal function. March 26, 2018-renal failure resolved. With an underlying diagnosis of sepsis acute tubular necrosis is a possibility but it is highly unlikely due to the extremely rapid recovery of kidney function. It may be due to hypovolemia but the exact etiology is difficult to specify. 03/27/2018-renal function has returned to normal. (4) Hypertension Qualifiers: Hypertension type: essential hypertension Qualified Code(s): I10 - Essential (primary) hypertension Is this a current diagnosis for this admission?: Yes Plan: The patient was hypotensive on admission. He has received IV fluids and his blood pressure in fact is normal. I am still holding his lisinopril for an additional day not only because it might induce hypotension but also I would like to see his renal function stable for another day before adding back his lisinopril. March 26, 2018-I will restart the patient's lisinopril today. Based on review of his blood pressures he should tolerate resumption of the medication without difficulty. 03/27/2018-the patient's blood pressure is still on the low side. I will decrease his lisinopril to 5 mg daily. (5) Depression Is this a current diagnosis for this admission?: Yes Plan: Because he is on an oral diet I will resume his sertraline 100 mg daily. March 26, 2018-continue sertraline as noted above. 03/27/2018-he has done well on sertraline. Continue same dose. (6) Hyperlipidemia Qualifiers: Hyperlipidemia type: mixed hyperlipidemia Qualified Code(s): E78.2 - Mixed hyperlipidemia Is this a current diagnosis for this admission?: Yes Plan: He is on oral diet so we will continue his simvastatin 20 mg daily. March 26, 2018-continue simvastatin. 03/27/2018-continue simvastatin 20 mg daily. (7) Traumatic brain injury Is this a current diagnosis for this admission?: Yes Plan: The patient's CT scan shows a history of traumatic brain injury. This is the etiology for his dysarthria. Is likely also the etiology for poor memory. The combination of infection and his history of TBI were the most likely etiologies for his altered mental state (metabolic encephalopathy). He does appear to be back at baseline. 03/27/2018-after consultation with psychiatry the patient was removed from all antipsychotic medications and placed on Depakote. As a mood stabilizer it appears to be extremely effective. I will continue his current dose but he does need to follow-up with his primary care physician and considering tapering the Depakote off unless the current benefits outweigh any risk. With his history of traumatic brain injury the Depakote might be an excellent adjunct moving forward. - Time Time Spent with patient: 15-24 minutes Medications reviewed and adjusted accordingly: Yes Anticipated discharge: Home with Homehealth Within: within 24 hours
[2018-03-27] MEDS: SIMVASTATIN 10 MG TABLET PO SCH (21:01)
[2018-03-28] MEDS ORDERED: GUAIFENESIN SYRP 200 MG/10 ML UDC PO PRN (01:48)
[2018-03-28] MEDS: VANCOMYCIN HCL 1,500 MG in DEXTROSE 5%-WATER 250 ML IV SCH (03:08)
[2018-03-28] MEDS: HEPARIN SOD (PORCINE) 5,000 UNIT/ML 1 ML SYRINGE SUBCUT SCH (05:07)
[2018-03-28] MEDS: GABAPENTIN 400 MG CAPSULE PO SCH (05:17)
[2018-03-28] MEDS: LANSOPRAZOLE 30 MG TAB.RAP.DR PO SCH (05:17)
[2018-03-28] MEDS: OXYCODONE HCL IR 5 MG TABLET PO PRN (05:17)
[2018-03-28 07:44] VITALS: BP 125/73
[2018-03-28] MEDS: SERTRALINE HCL 50 MG TABLET PO SCH (09:04)
[2018-03-28] MEDS: DIVALPROEX SODIUM 250 MG TABLET.DR PO SCH (09:04)
[2018-03-28] MEDS: ACETAMINOPHEN 325 MG TABLET PO PRN (09:19)
[2018-03-28] MEDS ORDERED: LISINOPRIL 10 MG TABLET PO SCH (10:00)
--- NOTE | 2018-03-28 10:14 | PDOC DISCHARGE SUMMARY ---
General - Admit/Disc Date/PCP Admission Date/Primary Care Provider: 03/23/18 16:18 ROMAN PRAJAPATI MD Discharge Date: 03/28/18 - Discharge Diagnosis (1) Sepsis Is this a current diagnosis for this admission?: Yes Summary: Patient was in the intensive care unit initially. He was transferred to the [facility] and has done well with antibiotic therapy. His hypotension has resolved as well as other organ function. (2) Pneumonia Is this a current diagnosis for this admission?: Yes Summary: Organism not able to be identified by sputum culture. Patient was on levofloxacin and vancomycin as an inpatient. He will continue levofloxacin for 4 additional days. (3) Acute renal failure Is this a current diagnosis for this admission?: Yes Summary: The patient's acute renal failure resolved with volume repletion and treatment of his sepsis with antibiotic therapy. (4) Hypertension Is this a current diagnosis for this admission?: Yes Summary: Prior to this admission the patient was on lisinopril 20 mg daily. His blood pressure has improved slowly. He should continue lisinopril 10 mg daily at home and follow-up with primary care physician for any adjustment based on his blood pressure. (5) Depression Is this a current diagnosis for this admission?: Yes Summary: Patient is now on sertraline 100 mg. Is been feeling much better. He will continue the same as an outpatient. (6) Hyperlipidemia Is this a current diagnosis for this admission?: Yes Summary: Continue simvastatin daily. (7) Traumatic brain injury Is this a current diagnosis for this admission?: Yes Summary: The patient certainly exhibits effects of his traumatic brain injury which includes slight dysarthria and memory issues. He is on Depakote and this will have seizure prophylaxis as well as mood stabilization. - Additional Information Resuscitation Status: Full Code Discharge Diet: Cardiac Discharge Activity: Activity As Tolerated, Balance Activity w/Rest, Other - Use the walker as outlined by physical therapy and continue with home physical therapy. Prescriptions: Levofloxacin 500 mg PO DAILY #4 tablet Sertraline HCl [Zoloft 50 mg Tablet] 100 mg PO DAILY #30 tablet Home Medications: Divalproex Sodium [Depakote] 500 mg PO Q12 03/23/18 Gabapentin [Neurontin] 800 mg PO Q8 03/23/18 Lisinopril [Prinivil 10 mg Tablet] 10 mg PO QHS 03/23/18 Meloxicam [Mobic] 7.5 mg PO DAILY 03/23/18 Oxycodone HCl 15 mg PO Q6HP PRN 03/23/18 Simvastatin [Zocor 20 mg Tablet] 20 mg PO QHS 03/23/18 Levofloxacin 500 mg PO DAILY #4 tablet 03/28/18 Lisinopril [Prinivil 10 mg Tablet] 5 mg PO DAILY tablet 03/28/18 Sertraline HCl [Zoloft 50 mg Tablet] 100 mg PO DAILY #30 tablet 03/28/18 History of Present Illness History of Present Illness: ORLANDO PUTNAM SR is a 52 year old male who presented to [facility] on March 23 with sepsis and community acquired pneumonia. Associated symptoms were lethargy, hypotension and acute kidney injury. He has a history of traumatic brain injury and lives alone. He is checked on regularly by friends from his [employer]. He had not been feeling well for several days and when his friends arrived he was lethargic and confused. He had not been eating or drinking for several days. When he presented to the emergency department he was hypotensive with acute kidney injury, positive chest x-ray for left lower lobe infiltrate and leukocytosis. Hospital Course Hospital Course: The patient had a good hospital course. He responded to aggressive IV fluid hydration and antibiotic therapy. His acute kidney injury completely resolved. He is on room air and breathing comfortably. He did receive IV antibiotics and will complete his course with oral antibiotics as an outpatient. He was seen by physical therapy. At the time of discharge he will be discharged with a walker. His gait is slightly unsteady. This is felt to be due to his weakness from his critical illness. He will continue physical therapy with home health. He was started on sertraline for depression. Sertraline with his Depakote has had a very positive effect. He has been in excellent spirits and admits that he does feel better than he did prior to this infection. In addition home health will check with medication compliance as the patient lives alone and it is very important that he completes his antibiotic therapy. His friends will be picking him up today. We are getting a walker for him to use at home. He is quite pleased about being able to go home. Physical Exam Vital Signs: Temp Pulse Resp BP Pulse Ox 98.2 F 61 16 125/73 93 03/28/18 07:43 03/28/18 07:43 03/28/18 07:43 03/28/18 07:43 03/28/18 07:43 Intake & Output 03/27/18 03/28/18 03/29/18 07:59 06:59 06:59 Intake Total Output Total Balance Weight General appearance: PRESENT: no acute distress, cooperative, well-nourished Eye exam: PRESENT: conjunctiva pink, EOMI. ABSENT: scleral icterus Ear exam: PRESENT: normal external ear exam Mouth exam: PRESENT: moist, neck supple Neck exam: PRESENT: full ROM. ABSENT: carotid bruit, JVD, lymphadenopathy, tenderness Respiratory exam: PRESENT: clear to auscultation neri, prolonged expiratory phas , symmetrical, unlabored. ABSENT: rales, rhonchi, wheezes Cardiovascular exam: PRESENT: RRR, +S1, +S2. ABSENT: diastolic murmur, systolic murmur Pulses: PRESENT: normal radial pulses, normal dorsalis pedis pul GI/Abdominal exam: PRESENT: normal bowel sounds, soft. ABSENT: distended, guarding, tenderness Extremities exam: ABSENT: calf tenderness, joint swelling Musculoskeletal exam: PRESENT: ambulatory - But weak. Slightly unsteady on his feet. Neurological exam: PRESENT: alert, awake, oriented to person, oriented to place Psychiatric exam: PRESENT: appropriate affect, normal mood. ABSENT: agitated, anxious Focused psych exam: ABSENT: delusional, paranoid, restlessness Skin exam: PRESENT: dry, intact, warm. ABSENT: cyanosis, rash Results Laboratory Results: 03/26/18 04:47 03/26/18 04:47 Impressions: Chest X-Ray 03/23/18 14:25 IMPRESSION: Left lower lobe pneumonia. Head CT 03/23/18 14:25 IMPRESSION: Prior craniotomy, old facial fractures. No acute intracranial imaging findings. EVIDENCE OF ACUTE STROKE: NO. Renal Ultrasound 03/24/18 00:00 IMPRESSION: Nonobstructive left nephrolithiasis. No hydronephrosis. Qualifiers - * PATIENT BEING DISCHARGED WITH ANY OF THE FOLLOWING DIAGNOSIS: No Plan Discharge Plan: Discharge with home health for physical and occupational therapy as well as [place] [facility] to assess the patient and ensure medication compliance as well as a smooth transition to home. The patient does need to follow-up with his primary care physician. Time Spent: Greater than 30 Minutes
== END 2018-03-28 13:29 | disposition home health service (06) | DRG 871 ==
LOC: ER 14:18 → EH 16:18 → ICU 18:07 → 3N 03-24 17:29
PROVIDERS: ADMIT Internal Medicine; ATTEND Internal Medicine
PROC: 5A09357 Assistance with Respiratory Ventilation, Less than 24 Consecutive Hours, Continuous Positive Airway Pressure (ICD-10-PCS; principal; 2018-03-23)
PROC: 3E0F73Z Introduction of Anti-inflammatory into Respiratory Tract, Via Natural or Artificial Opening (ICD-10-PCS; 2018-03-23)
PROC: 3E02340 Introduction of Influenza Vaccine into Muscle, Percutaneous Approach (ICD-10-PCS; 2018-03-28)
DX: A41.9 Sepsis, unspecified organism (principal); J18.1 Lobar pneumonia, unspecified organism; N17.0 Acute kidney failure with tubular necrosis; I10 Essential (primary) hypertension; F32.9 Major depressive disorder, single episode, unspecified; E78.2 Mixed hyperlipidemia; I95.9 Hypotension, unspecified; N20.0 Calculus of kidney; Z60.2 Problems related to living alone; F17.210 Nicotine dependence, cigarettes, uncomplicated; Z88.1 Allergy status to other antibiotic agents; Z87.820 Personal history of traumatic brain injury; Z23 Encounter for immunization; Z79.899 Other long term (current) drug therapy; Z82.61 Family history of arthritis; Z82.3 Family history of stroke; Z80.9 Family history of malignant neoplasm, unspecified; Z82.49 Family history of ischemic heart disease and other diseases of the circulatory system
CPT/HCPCS: 36415; 70450; 71045; 76770; 80048; 80053; 80164; 80202; 81001; 82533; 82550; 82553; 82570; 83605; 83735; 84100; 84156; 84300; 84443; 84484; 85025; 85610; 85730; 87040; 87077; 87186; 90686; 93005; 93010; 96360; 99291; G8978-GP; G8979-GP; J1644; J1956; J2405; J3370; J3490; J7030; J7060; J7120

== ENCOUNTER 2018-06-29 05:52 | Inpatient (IN) | payer MEDICARE, MEDICAID ==
[2018-06-29 08:21] LABS: APPEARANCE,URINE CLEAR; BILIRUBIN,URINE NEGATIVE (NEGATIVE); GLUCOSE, URINE NEGATIVE (NEGATIVE); KETONES,URINE 20 mg/dL (NEGATIVE); LEUKOCYTE ESTERASE,URINE NEGATIVE (NEGATIVE); NITRITE,URINE NEGATIVE (NEGATIVE); PROTEIN,URINE NEGATIVE (NEGATIVE); URINE SPECIFIC GRAVITY 1.025
[2018-06-29 08:22] LABS: COLOR,URINE YELLOW
--- NOTE | 2018-06-29 08:35 | RADIOLOGY REPORT (SQ) ---
EXAM DESCRIPTION: FOREARM LEFT COMPLETED DATE/TIME: 06/29/2018 8:20 am REASON FOR STUDY: Pain, swelling, possible trauma COMPARISON: 09/17/2006 NUMBER OF VIEWS: Two views. TECHNIQUE: Two radiographic images acquired of the left forearm, including elbow and wrist in at [address] one projection. LIMITATIONS: None. FINDINGS: MINERALIZATION: Normal. BONES: No acute fracture dislocation. No suspicious osseous lesions. Degenerative changes with join t space loss and osteophytosis at the 1st and 2nd carpometacarpal joint. SOFT TISSUES: No obvious swelling or foreign body. OTHER: No other significant finding. IMPRESSION: No evidence of acute bony abnormality. Degenerative changes at the 1st and 2nd carpometacarpal joints. TECHNICAL DOCUMENTATION: JOB ID: [id number] [employer]- All Rights Reserved Reading location - IP/workstation name: [email or web address]
[2018-06-29] MEDS ORDERED: KETOROLAC TROMETHAMINE INJ/PF 30 MG/1 ML SDV IV ONE (09:01)
[2018-06-29 09:14] LABS: HEMATOCRIT 46.4 % (37.9-51.0); HEMOGLOBIN 15.7 g/dL (13.5-17.0); MEAN CORPUSCULAR HEMOGLOBIN 30.8 pg (27.0-33.4); MEAN CORPUSCULAR HGB CONC 33.9 g/dL (32.0-36.0); MEAN CORPUSCULAR VOLUME 91 fl (80-97); PLATELET COUNT 150 10^3/uL (150-450); WHITE BLOOD COUNT 22.8 10^3/uL (4.0-10.5)
[2018-06-29] MEDS ORDERED: CLINDAMYCIN 600 MG/D5W RTU 600 MG/50 ML RTUPB IV ONE (09:28)
[2018-06-29 09:31] LABS: ALANINE AMINOTRANSFERASE 9 U/L (21-72); ALBUMIN 4.7 g/dL (3.5-5.0); ALKALINE PHOSPHATASE 61 U/L (38-126); ANION GAP 15 (5-19); ASPARTATE AMINO TRANSFERASE 22 U/L (17-59); BILIRUBIN,DIRECT 0.4 mg/dL (0.0-0.4); BILIRUBIN,TOTAL 1.2 mg/dL (0.2-1.3); BLOOD UREA NITROGEN 18 mg/dL (7-20); CALCIUM 9.7 mg/dL (8.4-10.2); CARBON DIOXIDE 24 mmol/L (22-30); CHLORIDE 100 mmol/L (98-107); CREATINE KINASE 85 U/L (55-170); GLUCOSE 76 mg/dL (75-110); POTASSIUM 4.2 mmol/L (3.6-5.0); SODIUM 138.6 mmol/L (137-145); TOTAL PROTEIN 7.6 g/dL (6.3-8.2)
[2018-06-29 09:43] LABS: ABSOLUTE LYMPHOCYTES# (MANUAL) 0.2 10^3/uL (0.5-4.7); ABSOLUTE MONOCYTES # (MANUAL) 1.1 10^3/uL (0.1-1.4); ABSOLUTE NEUTROPHILS# (MANUAL) 21.4 10^3/uL (1.7-8.2); BAND NEUTROPHILS % (MANUAL) 2 % (3-5); BASOPHILS % (MANUAL) 0 % (0-2); EOSINOPHILS % (MANUAL) 0 % (0-6); LYMPHOCYTES % (MANUAL) 1 % (13-45); MONOCYTES % (MANUAL) 5 % (3-13); PLATELET COMMENT ADEQUATE; RBC MORPHOLOGY COMMENT NORMO-CYTIC/CHROMIC; SEGMENTED NEUTROPHILS % (MAN) 92 % (42-78); TOTAL CELLS COUNTED 100; TOXIC VACUOLATION PRESENT
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
[2018-06-29] MEDS ORDERED: ONDANSETRON 4 MG TAB.RAPDIS PO PRN (11:43)
[2018-06-29] MEDS ORDERED: VANCOMYCIN HCL 0 MG in DEXTROSE 5%-WATER 250 ML IV NR (13:15)
[2018-06-29] MEDS: ENOXAPARIN SODIUM INJ 40 MG/0.4 ML DISP.SYRIN SUBCUT SCH (14:57)
[2018-06-29] MEDS ORDERED: NORMAL SALINE 1000 ML 2,000 ML IV ONE (15:15)
[2018-06-29] MEDS ORDERED: NORMAL SALINE 1000 ML 1,000 ML IV ONE ×2 (16:07→23:00)
[2018-06-29] MEDS ORDERED: NORMAL SALINE 1000 ML 1,000 ML IV PRN (16:07)
[2018-06-29] MEDS ORDERED: LIDOCAINE 1% INJ-PF (10 MG/ML) 30 ML SDV ONE (16:27)
[2018-06-29] MEDS: VANCOMYCIN HCL 1,250 MG in DEXTROSE 5%-WATER 250 ML IV SCH ×2 (17:01→22:36)
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
--- NOTE | 2018-06-29 17:17 | OPERATIVE REPORT E ---
Operative Report NAME: ORLANDO PUTNAM SR : 1965 AGE: 52Y DATE OF SURGERY: 06/29/2018 ROOM: 416 PREOPERATIVE DIAGNOSIS: POOR VEINS FOR IV ACCESS. POSTOPERATIVE DIAGNOSIS: POOR VEINS FOR IV ACCESS. OPERATION: Placement of right subclavian vein triple-lumen catheter. SURGEON: MARLA TOBAR M.D. ANESTHESIA: Local. INDICATIONS: This is a 52-year-old male who was noted to have hypotension and needed IV access. He does not have any peripheral veins for IV access with a history of IV drug abuse. DESCRIPTION OF PROCEDURE: The patient was placed in the Trendelenburg position and the right neck and clavicular area where then prepped and draped in the usual sterile fashion. Local anesthesia infiltrated at the right infraclavicular area and the right subclavian vein was then punctured and dark blood, nonpulsatile flow was noted on the needle. The guidewire was then passed through the needle towards the area of the superior vena cava. The needle was removed and puncture site dilated and a triple-lumen catheter inserted through the guidewire to a distance of about 18 cm. The 3 ports of the catheter aspirated blood easily and instilled saline easily. The catheter was then anchored to the skin with 3-0 silk. Biopatch placed on the insertion site and a transparent sterile dressing placed over the Biopatch and catheter. A chest x-ray will be obtained for placement. The patient tolerated the procedure well. DICTATING PHYSICIAN: MARLA TOBAR M.D. [id number] PHY#: [id number] ID: [id number] JOB#: [id number] ACCT: [id number] cc:MARLA TOBAR M.D. >
--- NOTE | 2018-06-29 18:10 | RADIOLOGY REPORT (SQ) ---
EXAM DESCRIPTION: CHEST SINGLE VIEW COMPLETED DATE/TIME: 06/29/2018 5:52 pm REASON FOR STUDY: Central line placement COMPARISON: 03/23/2018 NUMBER OF VIEWS: One view. TECHNIQUE: Single frontal radiographic image of the chest acquired. LIMITATIONS: AP portable. FINDINGS: LUNGS AND PLEURA: Small pleural effusions. No pneumothorax. MEDIASTINUM AND HEART: Stable heart size and mediastinal structures. SUPPORT DEVICES: Right central line tip overlying cavoatrial junction. BONY STRUCTURES: No acute findings. HARDWARE: None. OTHER: No other significant finding. IMPRESSION: Good position of central line. No pneumothorax. Reading location - IP/workstation name: [email or web address]
[2018-06-29] MEDS ORDERED: ACETAMINOPHEN 325 MG TABLET PO PRN (19:55)
[2018-06-29] MEDS: OXYCODONE-ACETAMINOPHEN 5-325 MG TABLET PO PRN (19:59)
[2018-06-29] MEDS: CLINDAMYCIN 600 MG/D5W RTU 600 MG/50 ML RTUPB IV SCH (20:00)
[2018-06-29] MEDS: NORMAL SALINE 1000 ML 1,000 ML IV PRN (22:37)
[2018-06-29] MEDS ORDERED: IBUPROFEN 800 MG TABLET ONE (22:51)
[2018-06-30] MEDS: NORMAL SALINE 1000 ML 1,000 ML IV PRN ×4 (00:22→23:24)
[2018-06-30] MEDS ORDERED: NORMAL SALINE 1000 ML 1,000 ML IV ONE ×3 (01:45→11:47)
[2018-06-30] MEDS: CLINDAMYCIN 600 MG/D5W RTU 600 MG/50 ML RTUPB IV SCH ×3 (02:35→18:08)
[2018-06-30] MEDS ORDERED: NOREPINEPHRINE BITARTRATE INJ/PF 4 MG/4 ML SDV IV ONE (02:58)
[2018-06-30 04:12] LABS: ABSOLUTE EOSINOPHILS # (AUTO) 0.1 10^3/uL (0.0-0.6); ABSOLUTE LYMPHOCYTES (AUTO) 1.3 10^3/uL (0.5-4.7); ABSOLUTE MONOCYTES (AUTO) 0.9 10^3/uL (0.1-1.4); ABSOLUTE NEUT (AUTO) 12.4 10^3/uL (1.7-8.2); BASOPHILS % (AUTO) 0.2 % (0-2); EOSINOPHILS % (AUTO) 0.4 % (0-6); HEMATOCRIT 32.4 % (37.9-51.0); LYMPHOCYTES % (AUTO) 8.8 % (13-45); MEAN CORPUSCULAR HEMOGLOBIN 31.1 pg (27.0-33.4); MEAN CORPUSCULAR VOLUME 91 fl (80-97); MONOCYTES % (AUTO) 5.8 % (3-13); PLATELET COUNT 100 10^3/uL (150-450); RED BLOOD COUNT 3.55 10^6/uL (4.35-5.55); RED CELL DISTRIBUTION WIDTH 13.8 % (11.5-14.0); SEGMENTED NEUTROPHILS % (AUTO) 84.8 % (42-78); TOTAL CELLS COUNTED % (AUTO) 100 %; WHITE BLOOD COUNT 14.6 10^3/uL (4.0-10.5)
[2018-06-30 05:44] LABS: ANION GAP 6 (5-19); BLOOD UREA NITROGEN 24 mg/dL (7-20); CARBON DIOXIDE 20 mmol/L (22-30); CHLORIDE 111 mmol/L (98-107); GLUCOSE 98 mg/dL (75-110); PHOSPHORUS 3.1 mg/dL (2.5-4.5); POTASSIUM 3.4 mmol/L (3.6-5.0); SODIUM 136.6 mmol/L (137-145)
[2018-06-30 06:11] LABS: CALCIUM 7.4 mg/dL (8.4-10.2)
[2018-06-30] MEDS: VANCOMYCIN HCL 1,250 MG in DEXTROSE 5%-WATER 250 ML IV SCH ×3 (06:47→18:08)
[2018-06-30] MEDS ORDERED: NORMAL SALINE 1000 ML 1,000 ML IV PRN (07:08)
[2018-06-30] MEDS ORDERED: DEXTROSE 5%-WATER 250 ML with NOREPINEPHRINE BITARTRATE 4 MG IV PRN ×2 (07:08)
[2018-06-30] MEDS ORDERED: POTASSIUM CHLORIDE 20 MEQ/15 ML UDCUP PO ONE ×2 (08:20→13:30)
[2018-06-30] MEDS ORDERED: POTASSI CL 20 MEQ/50 ML RIDER 20 MEQ/50 ML RTUPB IV ONE (09:00)
[2018-06-30 09:24] LABS: URINE BARBITURATES SCREEN NEGATIVE; URINE BENZODIAZEPINES SCREEN NEGATIVE; URINE COCAINE SCREEN NEGATIVE; URINE METHADONE SCREEN NEGATIVE; URINE PHENCYCLIDINE SCREEN NEGATIVE
[2018-06-30 09:51] LABS: URINE MARIJUANA (THC) SCREEN UNCONFIRMED POSITIVE
[2018-06-30] MEDS ORDERED: ENOXAPARIN SODIUM INJ 30 MG/0.3 ML DISP.SYRIN SUBCUT SCH (10:00)
[2018-06-30] MEDS: OXYCODONE-ACETAMINOPHEN 5-325 MG TABLET PO PRN ×3 (10:27→19:14)
[2018-06-30] MEDS: NICOTINE 21 MG/24 HR PATCH.TD24 TD SCH (10:34)
[2018-06-30] MEDS: MAGNESIUM SULFATE/D5W 1 GM/100 ML RTUPB IV SCH ×2 (10:38→12:34)
[2018-06-30] MEDS: ENOXAPARIN SODIUM INJ 40 MG/0.4 ML DISP.SYRIN SUBCUT SCH (11:20)
[2018-06-30] MEDS: GABAPENTIN 400 MG CAPSULE PO SCH ×2 (13:21→21:59)
[2018-06-30] MEDS: IBUPROFEN 800 MG TABLET PO PRN (14:10)
--- NOTE | 2018-06-30 14:28 | RADIOLOGY REPORT (SQ) ---
EXAM DESCRIPTION: VENOUS UNILATERAL UPPER COMPLETED DATE/TIME: 06/30/2018 1:56 pm REASON FOR STUDY: R/O DVT COMPARISON: None. TECHNIQUE: Dynamic and static morillo scale and color images acquired of the left arm venous system. Se lected spectral images acquired with additional compression and augmentation maneuvers. Images stored on PACS. LIMITATIONS: None. FINDINGS: LEFT INTERNAL JUGULAR VEIN: Normal phasicity, compression, augmentation. No visualized echogenic material on morillo scale. No defects on color images. Comparison opposite side normal. SUBCLAVIAN VEIN: Normal compression, augmentation. No visualized echogenic material on morillo scale. No defects on color images. AXILLARY VEIN: Normal compression, augmentation. No visualized echogenic material on morillo scale. No d efects on color images. BRACHIAL VEIN: Normal compression, augmentation. No visualized echogenic material on morillo scale. No d efects on color images. BASILIC VEIN: Normal compression, augmentation. No visualized echogenic material on morillo scale. No de fects on color images. CEPHALIC VEIN: Normal compression, augmentation. No visualized echogenic material on morillo scale. No d efects on color images. OTHER: No other significant finding. IMPRESSION: NO EVIDENCE DVT OR SVT LEFT ARM. TECHNICAL DOCUMENTATION: JOB ID: [id number] [employer]- All Rights Reserved Reading location - IP/workstation name: [email or web address]
--- NOTE | 2018-06-30 16:42 | PDOC PROGRESS REPORT ---
Subjective Progress Note for:: 06/30/18 Subjective:: ORLANDO PUTNAM is a 52 y.o. 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 He presented to the ED 06/29/2018 with LUE swelling to the forearm, wrist and hand. The patient was admitted for sepsis with the suspected source being cellulitis of the LUE. The patient was originally admitted to MED/TELE but upgraded overnight to ICU due to hypotension. The patient's SBP was persistently in the 70s despite multiple fluid boluses. A central line was placed by surgery and the patient was started on a norepinephrine gtt to maintain a MAP > 65. Additionally, the patient's creatinine increased from 0.9 -->1.38. His AV is likely prerenal, resulting from sepsis and hypotension. A colin catheter was placed to closely monitor his urine output. Upon evaluation this morning, the patient is resting comfortably in bed eating breakfast. He is alert and oriented, able to answer all questions appropriately. Patient states that his LUE feels 'a lot tighter' today when compared to yesterday. His LUE swelling has increased in the forearm, wrist and hand. Radial pulses are still palpable. The patient denies paresthesia to the LUE. Erythema has subsided, there is only a small area of very mild erythema on the medial/dorsal forearm. Antibiotics remain appropriate, coverage for MSSA and MRSA. Plan for ultrasound of the LUE to evaluate for DVT. Additionally, plan for MRI of LUE to evaluate for abscess. There is concerned that the patient may be an IV drug abuser given his clinical presentation (puncture rodriguez on both hands overlying veins). The patient denies IV drug abuse. Reason For Visit: CELLULITIS Physical Exam Vital Signs: Temp Pulse Resp BP Pulse Ox 97.9 F 78 20 95/62 L 98 06/30/18 06:27 06/30/18 03:42 06/30/18 06:27 06/30/18 06:27 06/30/18 06:27 Intake & Output 06/29/18 06/30/18 07/01/18 06:59 06:59 06:59 Intake Total 7625 Output Total 405 Balance 7220 Weight 95.4 kg 97.6 kg Results Laboratory Results: 06/30/18 03:40 06/30/18 03:40 06/29/18 06/29/18 06/29/18 08:52 08:52 08:52 WBC 22.8 H RBC 5.10 Hgb 15.7 Hct 46.4 MCV 91 MCH 30.8 MCHC 33.9 RDW 14.0 Plt Count 150 Seg Neutrophils % Not Reportable Lymphocytes % Not Reportable Monocytes % Not Reportable Eosinophils % Not Reportable Basophils % Not Reportable Absolute Neutrophils Not Reportable Absolute Lymphocytes Not Reportable Absolute Monocytes Not Reportable Absolute Eosinophils Not Reportable Absolute Basophils Not Reportable Sodium 138.6 Potassium 4.2 Chloride 100 Carbon Dioxide 24 Anion Gap 15 BUN 18 Creatinine 0.90 Est GFR ( Amer) > 60 Est GFR (Non-Af Amer) > 60 Glucose 76 Lactic Acid 2.5 H Calcium 9.7 Phosphorus Magnesium 2.0 Total Bilirubin 1.2 AST 22 ALT 9 L Alkaline Phosphatase 61 Total Protein 7.6 Albumin 4.7 06/29/18 06/30/18 06/30/18 14:45 03:40 03:40 WBC 14.6 H RBC 3.55 L Hgb 11.0 L D Hct 32.4 L MCV 91 MCH 31.1 MCHC 34.0 RDW 13.8 Plt Count 100 L Seg Neutrophils % 84.8 H Lymphocytes % 8.8 L Monocytes % 5.8 Eosinophils % 0.4 Basophils % 0.2 Absolute Neutrophils 12.4 H Absolute Lymphocytes 1.3 Absolute Monocytes 0.9 Absolute Eosinophils 0.1 Absolute Basophils 0.0 Sodium 136.6 L Potassium 3.4 L Chloride 111 H Carbon Dioxide 20 L Anion Gap 6 BUN 24 H Creatinine 1.38 H Est GFR ( Amer) > 60 Est GFR (Non-Af Amer) 54 L Glucose 98 Lactic Acid 1.2 Calcium 7.4 L Phosphorus 3.1 Magnesium 1.4 L Total Bilirubin AST ALT Alkaline Phosphatase Total Protein Albumin 06/29/18 08:52 Creatine Kinase 85 Impressions: Chest X-Ray 06/29/18 00:00 IMPRESSION: Good position of central line. No pneumothorax. Forearm X-Ray 06/29/18 07:26 IMPRESSION: No evidence of acute bony abnormality. Degenerative changes at the 1st and 2nd carpometacarpal joints. Assessment & Plan - Diagnosis (1) Sepsis Qualifiers: Sepsis type: sepsis due to unspecified organism Qualified Code(s): A41.9 - Sepsis, unspecified organism Is this a current diagnosis for this admission?: Yes Plan: Sepsis secondary to cellulitis of LUE As evidence by HYPOtension, fever, and leukocytosis TMAX 102.7 Blood cultures pending Tylenol for fever control Currently on Vanc and Clinda pending C&S MRI today to evaluate for abscess Initially treated with 2L IVF Bolus followed by maintenance IVF 150mL/hr (2) Cellulitis of left forearm Is this a current diagnosis for this admission?: Yes Plan: Unknown etiology at this time Possible IV drug use Clindamycin initiated in the ED, plan to continue and add vancomycin US LUE to r/o DVT MRI to evaluate for abscess Lactate 2.5 --> 1.2 Maintenance IVF 150mL/hr Elevate extremity to alleviate swelling (3) Leukocytosis Qualifiers: Leukocytosis type: bandemia Qualified Code(s): D72.825 - Bandemia Is this a current diagnosis for this admission?: Yes Plan: Secondary to sepsis stemming from cellulitis Antibiotics as above TMAX 102.7 Tylenol PRN for fever control Blood cultures pending (4) Hypotension Qualifiers: Hypotension type: unspecified hypotension type Qualified Code(s): I95.9 - Hypotension, unspecified Is this a current diagnosis for this admission?: Yes Plan: Secondary to hypovolemia/sepsis BP dropped to 75/54 Central line placed and aggressive IVF resuscitation Unable to maintain adequate BP, initiated norepinephrine gtt. Transfer to ICU (5) AV (acute kidney injury) Is this a current diagnosis for this admission?: Yes Plan: Prerenal. Secondary to hypotension coming from sepsis/cellulitis of LUE Aggressive IVF resuscitation Vasopressors for MAP>65 Initiate Colin catheter for I&O and critically ill patient Daily chemistries No plan for dialysis at this time - Time Time Spent with patient: 15-24 minutes Total Critical Time (Minutes): 30 Medications reviewed and adjusted accordingly: Yes Anticipated discharge: Home - Inpatient Certification Based on my medical assessment, after consideration of the patient's comorbidities, presenting symptoms, or acuity I expect that the services needed warrant INPATIENT care.: Yes I certify that my determination is in accordance with my understanding of Medicare's requirements for reasonable and necessary INPATIENT services [42 CFR 412.3e].: Yes Medical Necessity: Need for IV Antibiotics
--- NOTE | 2018-06-30 19:24 | Progress Note ---
Provider Note Provider Note: Tyloron: Critical care time beginnin:54 PM May 29, 2018 I was notified the patient was having difficulty with hypotension though he was very alert and oriented his blood pressure was noted to be in the 70s systolic. He was treated with an IV fluid bolus (1000 mL) of normal saline and his blood pressure responded with a systolic pressure in the 90s. His blood pressure remained stable for an hour or so and then began to decline again and was treated with an additional IV fluid bolus (1000 mL) of normal saline and his IV rate was increased to 500 mL/h utilizing normal saline. His blood pressure again responded for short time and then fell back into the 70s with a decline in his mentation and responsiveness. The patient was reevaluated and the decision to move him to the intensive care unit was made. In the intensive care unit the patient was started on a Levophed continuous infusion per protocol, with a good response and excellent control of his hypotension. He continued to receive aggressive fluid replacement with IV normal saline at 500 mL/h for the next 2 hours and then his IV fluid was decreased to 125 mL/h as his blood pressure remained stable. Critical care in time 3:59 AM May 30, 2018 Total critical care time 34 minutes.
--- NOTE | 2018-06-30 19:33 | RADIOLOGY REPORT (SQ) ---
EXAM DESCRIPTION: CT LT UPPER EXTREMITY WITH COMPLETED DATE/TIME: 06/30/2018 6:56 pm REASON FOR STUDY: evaluate for abscess COMPARISON: Plain radiograph TECHNIQUE: Postcontrast axial imaging performed through the left forearm with reformatted coronal an d sagittal imaging windowed for bone and soft tissues. Images saved to PACS. 3D IMAGING: Were 3D images as MIP, SSD, or volume rendering performed at the work station? No All CT scanners at this facility use dose modulation, iterative reconstruction, and/or weight based d osing when appropriate to reduce radiation dose to as low as reasonably achievable (ALARA). [facility]: Dose Right [facility]: CareDose [facility]: Dose Right [facility]: Teradose 4D [facility]: Openovate Labs CONTRAST TYPE AND DOSE: contrast/concentration: Isovue mg/ml; Total Contrast Delivered: 50.0 ml; To mary Saline Delivered: 60.0 ml RENAL FUNCTION: Creatinine 1.38 LIMITATIONS: None. RADIATION DOSE: CT Rad equipment meets quality standard of care and radiation dose reduction techniq ues were employed. CTDIvol: 2.6 mGy. DLP: 137 mGy-cm.mGy. FINDINGS: SOFT TISSUES: There is marked generalize dorsal soft tissue swelling along the entire fore arm. Very poor definition between the soft tissues in the musculature. There is some vague low-dens ity extensor compartment muscles distally. Not possible to differentiate the muscles on CT. Possibi lity of an abscess. BONES: No osteomyelitis MINERALIZATION: Normal. ENHANCEMENT: Vague heterogeneous density in the entire extensor compartment. Distally. OTHER: No other significant finding. IMPRESSION: Marked subcutaneous edema. There is also heterogeneous enhancement and density in the e xtensor compartments distally. Possible small abscess. Not possible to identify individual muscles on CT. COMMENT: Recommend MRI for further evaluation to better delineate the muscles in the forearm and danny luate for possible abscess. TECHNICAL DOCUMENTATION: JOB ID: [id number] Quality ID # [id number]: Final reports with documentation of one or more dose reduction techniques (e.g., Au tomated exposure control, adjustment of the mA and/or kV according to patient size, use of iterative reconstruction technique) 2010 [employer]- All Rights Reserved Reading location - IP/workstation name: [email or web address]
[2018-06-30] MEDS: MORPHINE SULFATE 10 MG/ML INJ IV PRN (20:42)
[2018-06-30] MEDS ORDERED: AMPICILLIN SOD/SULBACTAM 3 GM VIAL IV ONE (23:10)
[2018-06-30] MEDS ORDERED: AMPICILLIN SOD/SULBACTAM 3 GM VIAL IV SCH (23:15)
[2018-06-30] MEDS ORDERED: AMPICILLIN SOD/SULBACTAM 3 GM VIAL ONE (23:39)
[2018-06-30] MEDS ORDERED: AMPICILLIN SOD/SULBACTAM 3 GM VIAL IV PRN (23:45)
[2018-07-01] MEDS: CLINDAMYCIN 600 MG/D5W RTU 600 MG/50 ML RTUPB IV SCH ×3 (02:17→17:18)
[2018-07-01] MEDS ORDERED: BISACODYL 10 MG SUPP.RECT PR ONE (03:00)
[2018-07-01] MEDS: OXYCODONE-ACETAMINOPHEN 5-325 MG TABLET PO PRN ×4 (03:37→21:17)
[2018-07-01 04:55] LABS: ABSOLUTE EOSINOPHILS # (AUTO) 0.2 10^3/uL (0.0-0.6); ABSOLUTE LYMPHOCYTES (AUTO) 1.1 10^3/uL (0.5-4.7); ABSOLUTE NEUT (AUTO) 10.6 10^3/uL (1.7-8.2); BASOPHILS % (AUTO) 0.2 % (0-2); EOSINOPHILS % (AUTO) 1.9 % (0-6); HEMATOCRIT 36.5 % (37.9-51.0); HEMOGLOBIN 12.3 g/dL (13.5-17.0); LYMPHOCYTES % (AUTO) 8.4 % (13-45); MEAN CORPUSCULAR HEMOGLOBIN 30.9 pg (27.0-33.4); MEAN CORPUSCULAR HGB CONC 33.6 g/dL (32.0-36.0); MEAN CORPUSCULAR VOLUME 92 fl (80-97); MONOCYTES % (AUTO) 8.1 % (3-13); PLATELET COUNT 100 10^3/uL (150-450); RED BLOOD COUNT 3.97 10^6/uL (4.35-5.55); RED CELL DISTRIBUTION WIDTH 14.4 % (11.5-14.0); SEGMENTED NEUTROPHILS % (AUTO) 81.4 % (42-78); TOTAL CELLS COUNTED % (AUTO) 100 %
[2018-07-01] MEDS: GABAPENTIN 400 MG CAPSULE PO SCH ×4 (05:00→21:14)
[2018-07-01] MEDS: AMPICILLIN SODIUM/SULBACTAM NA 3 GM in NORMAL SALINE 100 ML IV SCH ×6 (05:01→23:34)
[2018-07-01 05:19] LABS: ALANINE AMINOTRANSFERASE 71 U/L (21-72); ALBUMIN 2.7 g/dL (3.5-5.0); ALKALINE PHOSPHATASE 67 U/L (38-126); ANION GAP 5 (5-19); ASPARTATE AMINO TRANSFERASE 98 U/L (17-59); BILIRUBIN,DIRECT 0.3 mg/dL (0.0-0.4); BILIRUBIN,TOTAL 0.4 mg/dL (0.2-1.3); BLOOD UREA NITROGEN 12 mg/dL (7-20); CALCIUM 8.2 mg/dL (8.4-10.2); CARBON DIOXIDE 23 mmol/L (22-30); CHLORIDE 114 mmol/L (98-107); GLUCOSE 95 mg/dL (75-110); SODIUM 142.4 mmol/L (137-145)
[2018-07-01] MEDS: VANCOMYCIN HCL 1,250 MG in DEXTROSE 5%-WATER 250 ML IV SCH ×3 (06:28→18:57)
[2018-07-01] MEDS: MORPHINE SULFATE 10 MG/ML INJ IV PRN ×2 (07:45→15:26)
[2018-07-01] MEDS: NICOTINE 21 MG/24 HR PATCH.TD24 TD SCH (12:08)
[2018-07-01] MEDS: ENOXAPARIN SODIUM INJ 40 MG/0.4 ML DISP.SYRIN SUBCUT SCH (12:11)
--- NOTE | 2018-07-01 12:16 | RADIOLOGY REPORT (SQ) ---
EXAM DESCRIPTION: MRI LT UPPER EXTREMITY COMBO COMPLETED DATE/TIME: 07/01/2018 11:03 am REASON FOR STUDY: evaluate abscess. cat bite vs IVDU COMPARISON: CT left arm 06/30/2018 Left upper extremity venous Doppler 06/30/2018 Left forearm films 06/29/2018 TECHNIQUE: Multiplanar imaging of the left forearm to include T1-weighted, postcontrast T1-weighted, and T2-weighted images. CONTRAST TYPE AND DOSE: 20 mL Prohance. RENAL FUNCTION: GFR > 60. LIMITATIONS: None. FINDINGS: Deep at the level of the radial head/antecubital fossa, there is a 6 to 7 mm thick, 5 cm l raymond abscess along the tissue planes between the supinator muscle and extensor carpi radialis/brachior adialis muscles. This peripheral rim enhancing abscess is best shown on series 14 image 43, and seri es 15 image 16. Mild contrast enhancement of the supinator muscle at the level of the radial head fr om myositis In the distal half of the forearm, a 13 cm long by 1.5 cm transverse by 1.5 cm AP abscess is present, tracking in the tissue planes between the extensor carpi ulnaris muscle and extensor pollicis muscle s. Enhancement of these muscles is present from myositis. There is a thrombosed superficial vein in the area of abscess. These findings are best shown on series 14 images 12-35, and series 15 images 12-16. Diffuse dorsal forearm cellulitis is present with skin thickening, and edema and enhancement of the s ubcutaneous fat. This extends from the wrist to the elbow. No underlying abnormal marrow signal worrisome for osteomyelitis. This report was discussed with Ann Estrada. IMPRESSION: Left forearm abscesses with adjacent myositis of the extensor carpi 3 ulnaris, extensor pollicis muscles and supinator muscles. The TECHNICAL DOCUMENTATION: JOB ID: [id number] [employer]- All Rights Reserved Reading location - IP/workstation name: [email or web address]
[2018-07-01] MEDS: IBUPROFEN 800 MG TABLET PO PRN (12:19)
[2018-07-01] MEDS ORDERED: GLUCAGON,HUMAN RECOMB 1 MG INJ SUBCUT PRN (12:58)
[2018-07-01] MEDS ORDERED: DEXTROSE 40% GEL 15 GM TUBE PO PRN ×2 (12:58)
[2018-07-01] MEDS ORDERED: DEXTROSE 50%-WATER 25 GM/50 ML DISP.SYRIN IV PRN ×2 (12:58)
[2018-07-01] MEDS: NORMAL SALINE 1000 ML 1,000 ML IV PRN ×2 (13:05→23:36)
--- NOTE | 2018-07-01 16:52 | PDOC PROGRESS REPORT ---
Subjective Progress Note for:: 07/01/18 Subjective:: ORLANDO PUTNAM is a 52 y.o. 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 He presented to the ED 06/29/2018 with LUE swelling to the forearm, wrist and hand. The patient was admitted for sepsis with the suspected source being cellulitis of the LUE. The patient remains in ICU. Nursing staff reports they are able to wean off of norepinephrine GTT overnight. Adult [employer]ial Education Instructor hospitalist added Ancef to antibiotic regimen for Pasteurella multocida, organisms commonly found in bite wounds from cats. Upon evaluation this morning, the patient is resting comfortably in bed eating breakfast. He is alert and oriented, able to answer all questions appropriately. Patient states that his LUE is very painful. His LUE swelling has increased again for a second day, and is spreading up past the elbow. Radial pulses are still palpable. The patient denies paresthesia to the LUE. Small area of erythema to the medial/dorsal forearm. MRI done this morning, positive for 2 abscesses present in the forearm (see MRI report for full details). Surgery consulted Reason For Visit: CELLULITIS Physical Exam Vital Signs: Temp Pulse Resp BP Pulse Ox 97.9 F 62 13 96/52 L 98 07/01/18 12:00 07/01/18 15:00 07/01/18 15:00 07/01/18 14:59 07/01/18 15:00 Intake & Output 06/30/18 07/01/18 07/02/18 06:59 06:59 06:59 Intake Total 7625 5117 907 Output Total 405 3000 825 Balance 7220 2117 82 Weight 97.6 kg 99.9 kg General appearance: PRESENT: well-developed, well-nourished Eye exam: PRESENT: conjunctiva pink, PERRLA Mouth exam: PRESENT: moist, tongue midline Neck exam: PRESENT: full ROM Respiratory exam: PRESENT: clear to auscultation neri, symmetrical, unlabored Cardiovascular exam: PRESENT: +S1, +S2 Pulses: PRESENT: normal radial pulses, normal dorsalis pedis pul GI/Abdominal exam: PRESENT: soft. ABSENT: tenderness Rectal exam: PRESENT: deferred Extremities exam: PRESENT: joint swelling - L HAND, WRIST & FOREARM. ABSENT: full ROM - PARTIAL ROM TO L WRIST AND DIGITS Musculoskeletal exam: PRESENT: ambulatory. ABSENT: full ROM Neurological exam: PRESENT: alert, awake, oriented to person, oriented to place, oriented to time, oriented to situation Psychiatric exam: PRESENT: appropriate affect Skin exam: PRESENT: dry, intact, normal color Results Laboratory Results: 07/01/18 04:31 07/01/18 04:31 07/01/18 07/01/18 04:31 04:31 WBC 13.0 H RBC 3.97 L Hgb 12.3 L Hct 36.5 L MCV 92 MCH 30.9 MCHC 33.6 RDW 14.4 H Plt Count 100 L Seg Neutrophils % 81.4 H Lymphocytes % 8.4 L Monocytes % 8.1 Eosinophils % 1.9 Basophils % 0.2 Absolute Neutrophils 10.6 H Absolute Lymphocytes 1.1 Absolute Monocytes 1.0 Absolute Eosinophils 0.2 Absolute Basophils 0.0 Sodium 142.4 Potassium 4.0 Chloride 114 H Carbon Dioxide 23 Anion Gap 5 BUN 12 Creatinine 0.83 Est GFR ( Amer) > 60 Est GFR (Non-Af Amer) > 60 Glucose 95 Calcium 8.2 L Total Bilirubin 0.4 AST 98 H ALT 71 Alkaline Phosphatase 67 Total Protein 5.0 L Albumin 2.7 L 06/29/18 08:52 Creatine Kinase 85 Impressions: Chest X-Ray 06/29/18 00:00 IMPRESSION: Good position of central line. No pneumothorax. Forearm X-Ray 06/29/18 07:26 IMPRESSION: No evidence of acute bony abnormality. Degenerative changes at the 1st and 2nd carpometacarpal joints. Upper Extremity CT 06/30/18 00:00 IMPRESSION: Marked subcutaneous edema. There is also heterogeneous enhancement and density in the extensor compartments distally. Possible small abscess. Not possible to identify individual muscles on CT. Venous Doppler Study 06/30/18 00:00 IMPRESSION: NO EVIDENCE DVT OR SVT LEFT ARM. Upper Extremity MRI 07/01/18 00:00 IMPRESSION: Left forearm abscesses with adjacent myositis of the extensor carpi 3 ulnaris, extensor pollicis muscles and supinator muscles. The Status: Imported from PACS Assessment & Plan - Diagnosis (1) Sepsis Qualifiers: Sepsis type: sepsis due to unspecified organism Qualified Code(s): A41.9 - Sepsis, unspecified organism Is this a current diagnosis for this admission?: Yes Plan: Sepsis secondary to cellulitis of LUE As evidence by HYPOtension, fever, and leukocytosis TMAX 102.7 Blood cultures pending Tylenol for fever control Currently on Vanc and Clinda. Added Ancef for Pasteurella multocida coverage (cat bite) MRI of LUE reveals 2 abscesses in the left forearm with adjacent myositis of the extensor carpi 3 naris, extensor pollicis and supinator muscles Initially treated with 2L IVF Bolus followed by maintenance IVF 150mL/hr Weaned from norepinephrine GTT overnight Patient to remain in ICU given tenuous blood pressure (2) Cellulitis of left forearm Is this a current diagnosis for this admission?: Yes Plan: Unknown etiology at this time Possible IV drug use vs. cat bite Clindamycin initiated in the ED, plan to continue and add vancomycin Ancef added for coverage of Pasteurella multocida (cat bite) US LUE negative for DVT MRI positive for L forearm abscess x 2 Lactate 2.5 --> 1.2 no longer trending Maintenance IVF 150mL/hr Elevate extremity to alleviate swelling Surgical consult. Dr. Moss assessed patient today. Plan for OR tonight or tomorrow. (3) Leukocytosis Qualifiers: Leukocytosis type: bandemia Qualified Code(s): D72.825 - Bandemia Is this a current diagnosis for this admission?: Yes Plan: Improving. WBC 22-->13 Secondary to sepsis stemming from cellulitis Antibiotics as above TMAX 102.7 Tylenol PRN for fever control Blood cultures pending (4) Hypotension Qualifiers: Hypotension type: unspecified hypotension type Qualified Code(s): I95.9 - Hypotension, unspecified Is this a current diagnosis for this admission?: Yes Plan: Secondary to hypovolemia/sepsis BP dropped to 75/54 Central line placed and aggressive IVF resuscitation Required norepinephrine gtt, has since been weaned Patient to remain in ICU for tenuous blood pressure (5) AV (acute kidney injury) Is this a current diagnosis for this admission?: Yes Plan: Resolved. Creatinine 0.83 Prerenal. Secondary to hypotension coming from sepsis/cellulitis of LUE Aggressive IVF resuscitation Initially treated with vasopressors for MAP>65, able to wean last night Myers catheter for I&O and critically ill patient Daily chemistries No plan for dialysis at this time - Time Time Spent with patient: 15-24 minutes Total Critical Time (Minutes): 30 Medications reviewed and adjusted accordingly: Yes Anticipated discharge: Home - Inpatient Certification Based on my medical assessment, after consideration of the patient's comorbidities, presenting symptoms, or acuity I expect that the services needed warrant INPATIENT care.: Yes I certify that my determination is in accordance with my understanding of Medicare's requirements for reasonable and necessary INPATIENT services [42 CFR 412.3e].: Yes Medical Necessity: Need for IV Antibiotics, Need for Surgery - Plan Summary Plan Summary: Plan for I&D of left forearm abscesses. Continue IV antibiotics. Continue IV maintenance fluids.
--- NOTE | 2018-07-01 20:50 | Physician Advisory Note ---
Physician Advisor ProgressNote .: Pursuant to the plan for Rashi Enriquez, I have reviewed the medical record for this patient. Physician Advisor Statement: septic shock = (severe sepsis) + (either lactate >2 or need for pressor for BP or BP still low after clinically adequate IVF challenge) Severe sepsis = sepsis + acute organ dysfunction/failure, such as MAP<70 or AV, or ... that is DUE TO the sepsis rather than due to something else Please clarify whether pt had: 1. "Severe sepsis with Septic shock, evidenced by ____[organ dysfunction] that was DUE TO sepsis" - vs "septic shock was ruled out", or ... 2. What AV was due to, if not due to above. Thanks! CK
[2018-07-02] MEDS: MORPHINE SULFATE 10 MG/ML INJ IV PRN ×3 (00:56→16:53)
[2018-07-02] MEDS: CLINDAMYCIN 600 MG/D5W RTU 600 MG/50 ML RTUPB IV SCH ×3 (02:03→17:26)
[2018-07-02] MEDS: AMPICILLIN SODIUM/SULBACTAM NA 3 GM in NORMAL SALINE 100 ML IV SCH ×4 (05:22→23:19)
[2018-07-02] MEDS: VANCOMYCIN HCL 1,250 MG in DEXTROSE 5%-WATER 250 ML IV SCH ×2 (05:22→17:25)
[2018-07-02] MEDS: GABAPENTIN 400 MG CAPSULE PO SCH ×3 (05:22→22:00)
[2018-07-02] MEDS ORDERED: FENTANYL CITRATE INJ/PF 100 MCG/2 ML AMPUL ONE (06:27)
[2018-07-02] MEDS ORDERED: MIDAZOLAM 2 MG/2 ML INJ ONE (06:27)
[2018-07-02] MEDS ORDERED: DEXAMETHASONE SOD PHOSPHATE INJ 4 MG/1 ML VIAL ONE (06:27)
[2018-07-02] MEDS ORDERED: ONDANSETRON HCL INJ/PF 4 MG/2 ML SDV ONE (06:27)
[2018-07-02] MEDS ORDERED: LIDOCAINE 2% INJ-PF (20 MG/ML) 10 ML AMPUL ONE (06:27)
[2018-07-02] MEDS ORDERED: PROPOFOL INJ 200 MG/20 ML VIAL IV ONE (06:28)
[2018-07-02] MEDS: OXYCODONE-ACETAMINOPHEN 5-325 MG TABLET PO PRN ×3 (07:17→22:00)
[2018-07-02] MEDS: ENOXAPARIN SODIUM INJ 40 MG/0.4 ML DISP.SYRIN SUBCUT SCH (09:01)
[2018-07-02] MEDS: NORMAL SALINE 1000 ML 1,000 ML IV PRN (10:32)
[2018-07-02] MEDS: NICOTINE 21 MG/24 HR PATCH.TD24 TD SCH (10:33)
[2018-07-02] MEDS ORDERED: BACITRACIN INJ 50,000 UNIT VIAL ONE (12:02)
--- NOTE | 2018-07-02 12:30 | Progress Note ---
Provider Note Provider Note: ID Consult - Brief Note Asked to review chart by Pharmacy. Pt not seen or examined. Mr Bender is a 52 year old man with PMH including depression, anxiety, TBI, HTN and HLD who presented on 06/29/18 with c/o LUE swelling that has been present for 2-3 days. Pt denied IVDU. He owns a cat. Did not recall being bit by cat. Curiously on admission pt refused to remove his shoes. He was febrile to 101.7 and hypotensive. No murmur was auscultated. L forearm, wrist and hand noted to be edematous and circumferentially erythematous on exam with pain on flexion/extension of wrist. He was noted to have multiple small puncture sites on his hands and forearm overlying his veins. Initial labs included leukocytosis WBC 22, elevated lactate. Blood cultures from 06/29 have been negative. Imaging included Forearm plain films on 06/29 no acute bony abnormality. Venous duplex U/S 06/30 with no DVT or SVT L arm. CT L arm 06/30: Marked subcutaneous edema, heterogenous enhancement and density in the extensor compartments distally, possible small abscess. MRI L arm 06/30: Deep at level of radial head/antecubital fossa 6-7 mm thick 5 cm long abscess along tissue plains between supinator and extensor carpi radialis/brachioradialis with peripheral rim enhancement; 13 cm long x 1.5 x 15 cm abscess distal half of forearm tracking between tissue plains between extensor carpi ulnaris and extensor pollicis, thrombosed superficial vein in the area of the abscess, adjacent myositis Empirically, clindamycin and vancomycin were started on 06/29. Unasyn was added on 07/01. Pt was in ICU on Levophed drip that was able to be weaned off. LUE swelling noted to be increased with small area of erythema involving forewarm, and surgery was consulted given MRI findings. Impression/Recommendations - LUE cellulitis, myositis, and abscess with puncture wounds to LUE over the veins that were suspicious either for IVDU (in R hand dominant person with IVDU, LUE would be common injection site, but pt denies IVDU) or possibly related to a cat he owns (but does not recall cat bite). - He has been on IV vancomycin, Unasyn and clindamycin empirically and is pending surgical consultation. - Suggest discontinuing clindamycin. IV vancomycin is reliably active against Staph including MRSA, Strep. Clindamycin less so. It is not adding anything in coverage, but could add to antibiotic associated diarrhea and C diff risk. - Can continue IV vancomycin and Unasyn for now; drainage of abscess would be important for source control and may help narrow this further. Arturo Santos MD [facility] Infectious Diseases pager [phone]
[2018-07-02] MEDS ORDERED: MORPHINE SULFATE 10 MG/ML INJ IV PRN (13:23)
[2018-07-02] MEDS ORDERED: PROMETHAZINE HCL INJ 25 MG/1 ML VIAL IV PRN ×2 (13:23)
[2018-07-02] MEDS ORDERED: MEPERIDINE HCL/PF INJ 25 MG/1 ML DISP.SYRIN IV PRN (13:23)
[2018-07-02] MEDS ORDERED: DIPHENHYDRAMINE HCL 50 MG/ML VIAL IV PRN (13:23)
[2018-07-02] MEDS ORDERED: FENTANYL CITRATE INJ/PF 100 MCG/2 ML AMPUL IV PRN ×3 (13:23)
[2018-07-02] MEDS ORDERED: ONDANSETRON HCL INJ/PF 4 MG/2 ML SDV IV PRN (13:23)
[2018-07-02] MEDS ORDERED: OXYCODONE-ACETAMINOPHEN 5-325 MG TABLET PO PRN ×2 (14:21)
[2018-07-02] MEDS: FENTANYL CITRATE INJ/PF 100 MCG/2 ML AMPUL ONE ×2 (14:23→14:31)
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
[2018-07-02] MEDS: HYDROMORPHONE HCL INJ/PF 2 MG/ML AMPULE ONE ×8 (14:42→15:55)
--- NOTE | 2018-07-02 14:53 | Operative Report ---
Operative Report DATE OF SURGERY: 07/02/18 PREOPERATIVE DIAGNOSIS: Left forearm abscess myositis POSTOPERATIVE DIAGNOSIS: Same OPERATION: Incision fasciotomy and debridement left forearm SURGEON: ROXY ROBERTO ANESTHESIA: GA TISSUE REMOVED OR ALTERED: Cultures of the abscess as well as tissue from the muscle and fascia. COMPLICATIONS: None ESTIMATED BLOOD LOSS: 20 mL INTRAOPERATIVE FINDINGS: As above PROCEDURE: Patient was brought to the operating room and successfully given general anesthetic. A tourniquet was applied to left upper extremity. The left hand and forearm was prepped and draped in a normal sterile surgical fashion. Timeout was done identifying the left forearm as the correct site. The extremity was held and tourniquet was inflated at 280 mmHg. Initially at the distal third forearm on the dorsal aspect was incised with a 10 blade. Dissection was taken down to the fascia with Metzenbaum scissors. Venous bleeder was coagulated. Next placing a finger blunt dissection was able to expose the abscess on the dorsal aspect of the forearm on the ulnar aspect. Cultures were taken. Separate second incision was done most proximal third of the forearm and only I was able to visualized edema and split in the fascial plane was done and the muscle looked healthy and red. I turned my attention to the distal third form again and expanded the incision and noted that there was some myositis and flexion between the muscle belly so decision was to connect the 2 incisions and make one for large incision and then do a formal fasciotomy of the dorsal compartment. Quickly was able to find the proximal abscess under the muscle belly of the EDC with a blunt dissection with a finger was able to expose and culture of the abscess. Abscess was expressed and debrided and bulb irrigation was used to clean the tissue. Tissue from the muscle and fascia was then also sent for pathology. Copious irrigation with sterilizing solution bacitracin was done using bulb syringe. At this point I once I was satisfied with the evacuation of the 2 larger abscess and connected to to reapproximate the dermal layer using 2-0 PDS and was used to close the wound with 3-0 nylon for the skin. [place] was placed in the muscle and was exposed in her distal incision. Xeroform 4 x 4 dressing ABD then Sof-Rol then Santiago wrap was done. It was let down and the drapes were removed and the patient was successfully extubated and sent to PACU in stable condition
[2018-07-02] MEDS ORDERED: SUCCINYLCHOLINE CHLORIDE INJ 200 MG/10 ML VIAL ONE (15:01)
--- NOTE | 2018-07-02 17:40 | PDOC PROGRESS REPORT ---
Subjective Progress Note for:: 07/02/18 Subjective:: ORLANDO PUTNAM is a 52 y.o. 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 He presented to the ED 06/29/2018 with LUE swelling to the forearm, wrist and hand. The patient was admitted for sepsis with the suspected source being cellulitis of the LUE. The patient remains in ICU on vancomycin, clindamycin and Ancef. Plan for OR today to I&D abscesses in L forearm. Upon evaluation this morning, the patient is resting comfortably in bed. He is alert and oriented, able to answer all questions appropriately. Patient states that his LUE is still very painful. His LUE swelling continues to spread up past the elbow. Radial pulses are still palpable. The patient denies paresthesia to the LUE. Small area of erythema to the medial/dorsal forearm. If patient remains hemodynamically stable, plan to downgrade to IMCU. Reason For Visit: LEFT FOREARM INFECTION WITH ABSCESS AND MYOSITIS Physical Exam Vital Signs: Temp Pulse Resp BP Pulse Ox 98.5 F 72 19 156/113 H 97 07/02/18 16:25 07/02/18 16:25 07/02/18 17:00 07/02/18 16:35 07/02/18 17:00 Intake & Output 07/01/18 07/02/18 07/03/18 06:59 06:59 06:59 Intake Total 5117 4057 1950 Output Total 3000 2225 2965 Balance 2117 1832 -1015 Weight 99.9 kg 100.7 kg 100.7 kg General appearance: PRESENT: no acute distress, well-developed, well-nourished Eye exam: PRESENT: PERRLA Mouth exam: PRESENT: moist, tongue midline Neck exam: PRESENT: full ROM Respiratory exam: PRESENT: chest wall tenderness, symmetrical, unlabored Cardiovascular exam: PRESENT: +S1, +S2 Pulses: PRESENT: normal radial pulses, normal dorsalis pedis pul GI/Abdominal exam: PRESENT: soft. ABSENT: distended, tenderness Rectal exam: PRESENT: deferred Extremities exam: PRESENT: full ROM, joint swelling, +2 edema - TO LEFT UPPER EX TREMITY Musculoskeletal exam: PRESENT: ambulatory, full ROM. ABSENT: normal inspection - LUE SWELLING AND ERYTHEMA Neurological exam: PRESENT: alert, awake, oriented to person, oriented to place, oriented to time, oriented to situation Psychiatric exam: PRESENT: appropriate affect Skin exam: PRESENT: dry, intact Results Laboratory Results: 07/01/18 04:31 07/01/18 04:31 06/29/18 08:52 Creatine Kinase 85 Impressions: Chest X-Ray 06/29/18 00:00 IMPRESSION: Good position of central line. No pneumothorax. Forearm X-Ray 06/29/18 07:26 IMPRESSION: No evidence of acute bony abnormality. Degenerative changes at the 1st and 2nd carpometacarpal joints. Upper Extremity CT 06/30/18 00:00 IMPRESSION: Marked subcutaneous edema. There is also heterogeneous enhancement and density in the extensor compartments distally. Possible small abscess. Not possible to identify individual muscles on CT. Venous Doppler Study 06/30/18 00:00 IMPRESSION: NO EVIDENCE DVT OR SVT LEFT ARM. Upper Extremity MRI 07/01/18 00:00 IMPRESSION: Left forearm abscesses with adjacent myositis of the extensor carpi 3 ulnaris, extensor pollicis muscles and supinator muscles. The Status: Imported from PACS Assessment & Plan - Diagnosis (1) Sepsis Qualifiers: Sepsis type: sepsis due to unspecified organism Qualified Code(s): A41.9 - Sepsis, unspecified organism Is this a current diagnosis for this admission?: Yes Plan: Improving Sepsis secondary to cellulitis of LUE As evidence by HYPOtension, fever, and leukocytosis TMAX 102.7. No fever for > 24hrs Blood cultures pending Tylenol for fever control Currently on Vanc and Clinda. Added Ancef for Pasteurella multocida coverage (cat bite) MRI of LUE reveals 2 abscesses in the left forearm with adjacent myositis of the extensor carpi 3 naris, extensor pollicis and supinator muscles Initially treated with 2L IVF Bolus followed by maintenance IVF 150mL/hr Weaned from norepinephrine GTT Postoperatively, if the patient remains normotensive can be downgraded to IMCU (2) Cellulitis of left forearm Is this a current diagnosis for this admission?: Yes Plan: Unknown etiology at this time Possible IV drug use vs. cat bite Clindamycin initiated in the ED, plan to continue and add vancomycin Ancef added for coverage of Pasteurella multocida (cat bite) US LUE negative for DVT MRI positive for L forearm abscess x 2 Lactate 2.5 --> 1.2 no longer trending Maintenance IVF 150mL/hr Elevate extremity to alleviate swelling Plan for OR today for I&D of LUE abscesses (3) Leukocytosis Qualifiers: Leukocytosis type: bandemia Qualified Code(s): D72.825 - Bandemia Is this a current diagnosis for this admission?: Yes Plan: Improving. WBC 22-->13 Secondary to sepsis stemming from cellulitis Antibiotics as above TMAX 102.7 Tylenol PRN for fever control Blood cultures pending (4) Hypotension Qualifiers: Hypotension type: unspecified hypotension type Qualified Code(s): I95.9 - Hypotension, unspecified Is this a current diagnosis for this admission?: Yes Plan: Resolved. Now normotensive Secondary to hypovolemia/sepsis BP dropped to 75/54 Central line placed and aggressive IVF resuscitation Required norepinephrine gtt, has since been weaned Patient to remain in ICU for tenuous blood pressure (5) AV (acute kidney injury) Is this a current diagnosis for this admission?: Yes Plan: Resolved. Creatinine <1.0 Prerenal. Secondary to hypotension coming from sepsis/cellulitis of LUE Aggressive IVF resuscitation Initially treated with vasopressors for MAP>65, able to wean last night Myers catheter for I&O and critically ill patient Daily chemistries No plan for dialysis at this time - Time Time Spent with patient: 15-24 minutes Medications reviewed and adjusted accordingly: Yes Anticipated discharge: Home - Inpatient Certification Based on my medical assessment, after consideration of the patient's comorbidities, presenting symptoms, or acuity I expect that the services needed warrant INPATIENT care.: Yes I certify that my determination is in accordance with my understanding of Medicare's requirements for reasonable and necessary INPATIENT services [42 CFR 412.3e].: Yes Medical Necessity: Need For IV Fluids, Need For Continuous Telemetry Monitoring, Need for IV Antibiotics - Plan Summary Plan Summary: ABX. OR TODAY TO I&D.
[2018-07-02] MEDS: IBUPROFEN 800 MG TABLET PO PRN (17:45)
[2018-07-02] MEDS ORDERED: (PENDING PHARMACY ID) (Divalproex Sodium [Depakote] 500 MG) PO SCH (22:00)
[2018-07-02] MEDS: SIMVASTATIN 10 MG TABLET PO SCH (22:00)
[2018-07-02] MEDS: DIVALPROEX SODIUM 250 MG TABLET.DR PO SCH (22:00)
[2018-07-02] MEDS ORDERED: LISINOPRIL 10 MG TABLET PO SCH (22:00)
[2018-07-03] MEDS: NORMAL SALINE 1000 ML 1,000 ML IV PRN ×2 (02:25→20:04)
[2018-07-03 04:36] LABS: HEMATOCRIT 34.4 % (37.9-51.0); HEMOGLOBIN 11.8 g/dL (13.5-17.0); MEAN CORPUSCULAR HEMOGLOBIN 31.1 pg (27.0-33.4); MEAN CORPUSCULAR HGB CONC 34.3 g/dL (32.0-36.0); MEAN CORPUSCULAR VOLUME 91 fl (80-97); PLATELET COUNT 197 10^3/uL (150-450); RED BLOOD COUNT 3.79 10^6/uL (4.35-5.55); RED CELL DISTRIBUTION WIDTH 14.3 % (11.5-14.0); WHITE BLOOD COUNT 11.6 10^3/uL (4.0-10.5)
[2018-07-03 04:48] LABS: ANION GAP 5 (5-19); BLOOD UREA NITROGEN 10 mg/dL (7-20); CALCIUM 7.9 mg/dL (8.4-10.2); CARBON DIOXIDE 28 mmol/L (22-30); CHLORIDE 107 mmol/L (98-107); GLUCOSE 119 mg/dL (75-110); POTASSIUM 4.1 mmol/L (3.6-5.0); SODIUM 139.5 mmol/L (137-145)
[2018-07-03] MEDS: VANCOMYCIN HCL 1,250 MG in DEXTROSE 5%-WATER 250 ML IV SCH ×2 (05:24→21:42)
[2018-07-03] MEDS: AMPICILLIN SODIUM/SULBACTAM NA 3 GM in NORMAL SALINE 100 ML IV SCH ×3 (05:24→20:04)
[2018-07-03] MEDS: GABAPENTIN 400 MG CAPSULE PO SCH ×3 (05:25→21:43)
[2018-07-03] MEDS: OXYCODONE-ACETAMINOPHEN 5-325 MG TABLET PO PRN ×4 (05:28→21:48)
[2018-07-03] MEDS ORDERED: HYDRALAZINE HCL INJ/PF 20 MG/1 ML SDV IV PRN (08:17)
[2018-07-03] MEDS: DIVALPROEX SODIUM 250 MG TABLET.DR PO SCH ×2 (10:25→21:43)
[2018-07-03] MEDS: NICOTINE 21 MG/24 HR PATCH.TD24 TD SCH (10:25)
[2018-07-03] MEDS: ENOXAPARIN SODIUM INJ 40 MG/0.4 ML DISP.SYRIN SUBCUT SCH (10:28)
--- NOTE | 2018-07-03 15:34 | PDOC PROGRESS REPORT ---
Subjective Progress Note for:: 07/03/18 Subjective:: Patient lying in bed comfortably. Denies fever chills or sweats. Pain 4/5. Reason For Visit: LEFT FOREARM INFECTION WITH ABSCESS AND MYOSITIS Physical Exam Vital Signs: Temp Pulse Resp BP Pulse Ox 98.1 F 72 15 109/73 98 07/03/18 12:00 07/03/18 12:00 07/03/18 12:00 07/03/18 12:00 07/03/18 12:00 Intake & Output 07/02/18 07/03/18 07/04/18 06:59 06:59 06:59 Intake Total 4057 3400 350 Output Total 2225 3778 620 Balance 5521 -383 -675 Weight 100.7 kg 100.5 kg Musculoskeletal exam: PRESENT: other - Left upper extremity: Dressing clean/dry/intact. Full extension of the IP/MP joints. EPL/FPL intact. No pain with passive stretch. Cap refill less than 2 seconds. No proximal streaking erythema. Results Laboratory Results: 07/03/18 04:25 07/03/18 04:25 07/03/18 07/03/18 04:25 04:25 WBC 11.6 H RBC 3.79 L Hgb 11.8 L Hct 34.4 L MCV 91 MCH 31.1 MCHC 34.3 RDW 14.3 H Plt Count 197 Sodium 139.5 Potassium 4.1 Chloride 107 Carbon Dioxide 28 Anion Gap 5 BUN 10 Creatinine 0.77 Est GFR ( Amer) > 60 Est GFR (Non-Af Amer) > 60 Glucose 119 H Calcium 7.9 L 06/29/18 08:52 Creatine Kinase 85 Impressions: Chest X-Ray 06/29/18 00:00 IMPRESSION: Good position of central line. No pneumothorax. Forearm X-Ray 06/29/18 07:26 IMPRESSION: No evidence of acute bony abnormality. Degenerative changes at the 1st and 2nd carpometacarpal joints. Upper Extremity CT 06/30/18 00:00 IMPRESSION: Marked subcutaneous edema. There is also heterogeneous enhancement and density in the extensor compartments distally. Possible small abscess. Not possible to identify individual muscles on CT. Venous Doppler Study 06/30/18 00:00 IMPRESSION: NO EVIDENCE DVT OR SVT LEFT ARM. Upper Extremity MRI 07/01/18 00:00 IMPRESSION: Left forearm abscesses with adjacent myositis of the extensor carpi 3 ulnaris, extensor pollicis muscles and supinator muscles. The Assessment & Plan - Diagnosis (1) Abscess of forearm, left Is this a current diagnosis for this admission?: Yes Plan: Postop day #1 status post irrigation debridement left forearm 1. Continue IV antibiotics with Unasyn 2. Begin occupational therapy focusing on digit and elbow range of motion. 3. Dressing change 07/04/18 to evaluate wound. 4. Patient will likely require further IV antibiotics until clinical improvement noted.
[2018-07-03] MEDS: SIMVASTATIN 10 MG TABLET PO SCH (21:42)
[2018-07-03] MEDS: LISINOPRIL 10 MG TABLET PO SCH (21:43)
[2018-07-04] MEDS: AMPICILLIN SODIUM/SULBACTAM NA 3 GM in NORMAL SALINE 100 ML IV SCH ×4 (00:10→17:24)
[2018-07-04] MEDS: MORPHINE SULFATE 10 MG/ML INJ IV PRN (00:11)
[2018-07-04] MEDS: OXYCODONE-ACETAMINOPHEN 5-325 MG TABLET PO PRN ×4 (04:53→17:25)
[2018-07-04] MEDS: GABAPENTIN 400 MG CAPSULE PO SCH ×3 (06:06→21:33)
[2018-07-04 06:50] LABS: HEMATOCRIT 34.4 % (37.9-51.0); HEMOGLOBIN 11.9 g/dL (13.5-17.0); MEAN CORPUSCULAR HEMOGLOBIN 31.2 pg (27.0-33.4); MEAN CORPUSCULAR HGB CONC 34.4 g/dL (32.0-36.0); MEAN CORPUSCULAR VOLUME 91 fl (80-97); PLATELET COUNT 226 10^3/uL (150-450); RED BLOOD COUNT 3.81 10^6/uL (4.35-5.55); RED CELL DISTRIBUTION WIDTH 14.4 % (11.5-14.0); WHITE BLOOD COUNT 9.4 10^3/uL (4.0-10.5)
[2018-07-04] MEDS: VANCOMYCIN HCL 1,250 MG in DEXTROSE 5%-WATER 250 ML IV SCH ×2 (06:52→18:00)
[2018-07-04 06:55] LABS: ANION GAP 6 (5-19); BLOOD UREA NITROGEN 10 mg/dL (7-20); CALCIUM 8.1 mg/dL (8.4-10.2); CARBON DIOXIDE 28 mmol/L (22-30); CHLORIDE 108 mmol/L (98-107); GLUCOSE 81 mg/dL (75-110); POTASSIUM 4.1 mmol/L (3.6-5.0); SODIUM 142.1 mmol/L (137-145)
[2018-07-04] MEDS: NORMAL SALINE 1000 ML 1,000 ML IV PRN ×2 (08:33→17:28)
[2018-07-04] MEDS: ENOXAPARIN SODIUM INJ 40 MG/0.4 ML DISP.SYRIN SUBCUT SCH (09:06)
[2018-07-04] MEDS: DIVALPROEX SODIUM 250 MG TABLET.DR PO SCH ×2 (09:06→21:32)
[2018-07-04] MEDS: NICOTINE 21 MG/24 HR PATCH.TD24 TD SCH (09:06)
--- NOTE | 2018-07-04 15:28 | PDOC PROGRESS REPORT ---
Subjective Subjective:: Patient lying in bed comfortably. Denies fever chills or sweats. Pain 4/5. States pain is improving. Has been transferred from the ICU. Reason For Visit: LEFT FOREARM INFECTION WITH ABSCESS AND MYOSITIS Physical Exam Vital Signs: Temp Pulse Resp BP Pulse Ox 98.0 F 62 18 136/73 H 96 07/04/18 11:33 07/04/18 11:33 07/04/18 11:33 07/04/18 11:33 07/04/18 11:33 Intake & Output 07/03/18 07/04/18 07/05/18 06:59 06:59 06:59 Intake Total 3400 2900 450 Output Total 4215 2140 650 Balance -815 760 -200 Weight 100.5 kg 102.7 kg Musculoskeletal exam: PRESENT: other - Left upper extremity: Dressing change today. Incision well approximated no erythema or drainage. Drain remains intact. Compartments soft and compressible no sign of compartment syndrome. No evidence of necrosis. Patient has full wrist flexion/extension without discomfort. Full digit extension/flexion EPL/FPL intact. No sensory deficits. Results Laboratory Results: 07/04/18 06:05 07/04/18 06:05 07/04/18 07/04/18 06:05 06:05 WBC 9.4 RBC 3.81 L Hgb 11.9 L Hct 34.4 L MCV 91 MCH 31.2 MCHC 34.4 RDW 14.4 H Plt Count 226 Sodium 142.1 Potassium 4.1 Chloride 108 H Carbon Dioxide 28 Anion Gap 6 BUN 10 Creatinine 0.84 Est GFR ( Amer) > 60 Est GFR (Non-Af Amer) > 60 Glucose 81 Calcium 8.1 L Phosphorus 4.0 Magnesium 1.8 07/02/18 13:20 Forearm - Left Gram Stain - Final 07/02/18 13:38 Forearm - Left Gram Stain - Final 07/02/18 13:22 Forearm - Left Gram Stain - Final 06/29/18 12:21 Blood Blood Culture - Final NO GROWTH IN 5 DAYS 06/29/18 08:52 Blood Blood Culture - Final NO GROWTH IN 5 DAYS 06/29/18 08:52 Creatine Kinase 85 Impressions: Chest X-Ray 06/29/18 00:00 IMPRESSION: Good position of central line. No pneumothorax. Forearm X-Ray 06/29/18 07:26 IMPRESSION: No evidence of acute bony abnormality. Degenerative changes at the 1st and 2nd carpometacarpal joints. Upper Extremity CT 06/30/18 00:00 IMPRESSION: Marked subcutaneous edema. There is also heterogeneous enhancement and density in the extensor compartments distally. Possible small abscess. Not possible to identify individual muscles on CT. Venous Doppler Study 06/30/18 00:00 IMPRESSION: NO EVIDENCE DVT OR SVT LEFT ARM. Upper Extremity MRI 07/01/18 00:00 IMPRESSION: Left forearm abscesses with adjacent myositis of the extensor carpi 3 ulnaris, extensor pollicis muscles and supinator muscles. The Assessment & Plan - Diagnosis (1) Abscess of forearm, left Is this a current diagnosis for this admission?: Yes Plan: Postop day #1 status post irrigation debridement left forearm 1. Concern given the group a strep of possible necrotizing fasciitis however an operative findings demonstrated more of a myositis type picture which is less severe currently patient is seeing clinical improvement will continue IV antibiotics as per hospitalist recommendations. 2. Begin occupational therapy focusing on digit and elbow range of motion. 3. Patient will likely require IV antibiotics until significant clinical improvement is noted
[2018-07-04] MEDS: SIMVASTATIN 10 MG TABLET PO SCH (21:32)
[2018-07-04] MEDS: LISINOPRIL 10 MG TABLET PO SCH (21:32)
[2018-07-04] MEDS: OXYCODONE HCL SR 10 MG TABLET PO SCH (21:33)
--- NOTE | 2018-07-04 21:39 | PDOC PROGRESS REPORT ---
Subjective Progress Note for:: 07/03/18 Subjective:: ORLANDO PUTNAM is a 52 y.o. 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 He presented to the ED 06/29/2018 with LUE swelling to the forearm, wrist and hand. The patient was admitted for sepsis with the suspected source being cellulitis of the LUE. The patient remains in ICU on vancomycin & Unasyn. Went to OR yesterday for I&D of abscesses in L forearm. No intraop/post-op complications. Upon evaluation this morning, the patient is sleeping comfortably in bed. He is arouable, oriented and able to answer most questions appropriately. Patient states that his LUE is still very painful. His LUE swelling has improved. The patient was restarted on his home dose lisinopril last night by surgery, however, the patient is HYPOtensive overnight and this morning. Plan to continue maintenance IVF and hold all oral anti-hypertensives. Awaiting wound cultures for C&S. Reason For Visit: LEFT FOREARM INFECTION WITH ABSCESS AND MYOSITIS Physical Exam Vital Signs: Temp Pulse Resp BP Pulse Ox 98.3 F 58 L 14 99/77 L 99 07/03/18 04:00 07/03/18 03:00 07/03/18 06:00 07/03/18 05:14 07/03/18 06:00 Intake & Output 07/02/18 07/03/18 07/04/18 06:59 06:59 06:59 Intake Total 4057 3400 Output Total 2220 4215 Balance 1832 -815 Weight 100.7 kg 100.5 kg General appearance: PRESENT: no acute distress, well-developed, well-nourished Head exam: PRESENT: atraumatic Eye exam: PRESENT: conjunctiva pink, PERRLA Mouth exam: PRESENT: moist, tongue midline Teeth exam: PRESENT: poor dentation Neck exam: PRESENT: full ROM Respiratory exam: PRESENT: symmetrical, unlabored Cardiovascular exam: PRESENT: bradycardia - INTERMITTENTLY BRADYCARDIC, RRR Pulses: PRESENT: normal radial pulses Vascular exam: PRESENT: normal capillary refill GI/Abdominal exam: PRESENT: soft. ABSENT: tenderness Rectal exam: PRESENT: deferred Extremities exam: PRESENT: full ROM Musculoskeletal exam: PRESENT: ambulatory, full ROM. ABSENT: normal inspection - LUE POST-OP I&D. MULTIPLE INCISION SITES. EXTREMITY WRAPPED IN KANDI BANDAGE. Neurological exam: PRESENT: alert, awake, oriented to person, oriented to place, oriented to time, oriented to situation Psychiatric exam: PRESENT: appropriate affect Skin exam: PRESENT: dry, intact, normal color Results Laboratory Results: 07/03/18 04:25 07/03/18 04:25 07/03/18 07/03/18 04:25 04:25 WBC 11.6 H RBC 3.79 L Hgb 11.8 L Hct 34.4 L MCV 91 MCH 31.1 MCHC 34.3 RDW 14.3 H Plt Count 197 Sodium 139.5 Potassium 4.1 Chloride 107 Carbon Dioxide 28 Anion Gap 5 BUN 10 Creatinine 0.77 Est GFR ( Amer) > 60 Est GFR (Non-Af Amer) > 60 Glucose 119 H Calcium 7.9 L 06/29/18 08:52 Creatine Kinase 85 Impressions: Chest X-Ray 06/29/18 00:00 IMPRESSION: Good position of central line. No pneumothorax. Forearm X-Ray 06/29/18 07:26 IMPRESSION: No evidence of acute bony abnormality. Degenerative changes at the 1st and 2nd carpometacarpal joints. Upper Extremity CT 06/30/18 00:00 IMPRESSION: Marked subcutaneous edema. There is also heterogeneous enhancement and density in the extensor compartments distally. Possible small abscess. Not possible to identify individual muscles on CT. Venous Doppler Study 06/30/18 00:00 IMPRESSION: NO EVIDENCE DVT OR SVT LEFT ARM. Upper Extremity MRI 07/01/18 00:00 IMPRESSION: Left forearm abscesses with adjacent myositis of the extensor carpi 3 ulnaris, extensor pollicis muscles and supinator muscles. The Status: Imported from PACS Assessment & Plan - Diagnosis (1) Sepsis Qualifiers: Sepsis type: sepsis due to unspecified organism Qualified Code(s): A41.9 - Sepsis, unspecified organism Is this a current diagnosis for this admission?: Yes Plan: Improving Sepsis secondary to cellulitis of LUE As evidence by HYPOtension, fever, and leukocytosis TMAX 102.7. No fever for > 24hrs Blood cultures no growth at 72 hours Tylenol for fever control Currently on Vancomycin for G+ (MSSA/MSRA) coverage and Unasyn for Pasteurella multocida coverage (cat bite) MRI of LUE reveals 2 abscesses in the left forearm with adjacent myositis of the extensor carpi 3 naris, extensor pollicis and supinator muscles POD#1 I&D abscesses, procedure done by Ortho Sx Initially treated with 2L IVF Bolus followed by maintenance IVF 150mL/hr Weaned from norepinephrine GTT HYPOtension has stabilized, downgraded to IMCU yesterday (2) Cellulitis of left forearm Is this a current diagnosis for this admission?: Yes Plan: Unknown etiology at this time Possible IV drug use vs. cat bite Clindamycin initiated in the ED, discontinued and started vancomycin Unasyn added for coverage of Pasteurella multocida (cat bite) US LUE negative for DVT MRI positive for L forearm abscess x 2 POD#1 I&D abscess drainage Wound cultures pending Lactate 2.5 --> 1.2 no longer trending Maintenance IVF 150mL/hr Elevate extremity to alleviate swelling (3) Leukocytosis Qualifiers: Leukocytosis type: bandemia Qualified Code(s): D72.825 - Bandemia Is this a current diagnosis for this admission?: Yes Plan: Improving. WBC 22-->11 Secondary to sepsis stemming from cellulitis Antibiotics as above TMAX 102.7 Tylenol PRN for fever control Blood cultures no growth Wound cultures pending (4) Hypotension Qualifiers: Hypotension type: unspecified hypotension type Qualified Code(s): I95.9 - Hypotension, unspecified Is this a current diagnosis for this admission?: Yes Plan: Improving. Mildly HYPOtensive this morning (SBP 99-110) Secondary to hypovolemia/sepsis BP dropped to 75/54 Central line placed and aggressive IVF resuscitation Required norepinephrine gtt, has since been weaned All home dose anti-hypertensives should remain on HOLD (5) AV (acute kidney injury) Is this a current diagnosis for this admission?: Yes Plan: Resolved. Creatinine <1.0 Prerenal. Secondary to hypotension coming from sepsis/cellulitis of LUE Aggressive IVF resuscitation Initially treated with vasopressors for MAP>65, able to wean Daily chemistries No plan for dialysis at this time - Time Time Spent with patient: 15-24 minutes Medications reviewed and adjusted accordingly: Yes Anticipated discharge: Home - Inpatient Certification Based on my medical assessment, after consideration of the patient's comorbidities, presenting symptoms, or acuity I expect that the services needed warrant INPATIENT care.: Yes I certify that my determination is in accordance with my understanding of Medicare's requirements for reasonable and necessary INPATIENT services [42 CFR 412.3e].: Yes Medical Necessity: Need For IV Fluids, Need For Continuous Telemetry Monitoring, Need for IV Antibiotics - Plan Summary Plan Summary: ANTIBIOTICS. AWAITING WOUND C&S. MAINTENANCE IVF.
--- NOTE | 2018-07-04 21:48 | PDOC PROGRESS REPORT ---
Addendum entered and electronically signed by LATONIA CLEMENTS NP 07/04/18 21:51: Provider Note Provider Note: Wound culture positive for group A beta strep, an organism commonly found in necrotizing fascitis. No concern for NecFasc at this time. Patien't clinical picture has improved f Original Note: Subjective Progress Note for:: 07/04/18 Subjective:: ORLANDO PUTNAM is a 52 y.o. M with a PMH of TBI (1999 s/p craniotomy), HTN, HLD, a nxiety and depression. He presented to the ED 06/29/2018 with LUE swelling to the forearm, wrist and hand. The patient was admitted for sepsis with the suspected source being cellulitis of the LUE. The patient is POD#2 I&D L forearm abscesses. Upon evaluation this morning, the patient is sitting in the bedside recliner. He is arouable, oriented and able to answer most questions appropriately. Patient states that his LUE is still very painful. His LUE swelling has greatly improved. Wound cultures (+) Group A beta Strep. Awaiting wound cultures for C&S. Re- Consult ID. Reason For Visit: LEFT FOREARM INFECTION WITH ABSCESS AND MYOSITIS Physical Exam Vital Signs: Temp Pulse Resp BP Pulse Ox 97.9 F 64 16 123/69 94 07/04/18 19:47 07/04/18 19:47 07/04/18 19:47 07/04/18 19:47 07/04/18 19:47 Intake & Output 07/03/18 07/04/18 07/05/18 06:59 06:59 06:59 Intake Total 3400 2900 1800 Output Total 4215 2140 1025 Balance -815 760 775 Weight 100.5 kg 102.7 kg General appearance: PRESENT: no acute distress, well-developed, well-nourished Eye exam: PRESENT: conjunctiva pink, PERRLA Mouth exam: PRESENT: moist Neck exam: PRESENT: full ROM Respiratory exam: PRESENT: clear to auscultation neri, symmetrical, unlabored Cardiovascular exam: PRESENT: RRR Pulses: PRESENT: normal radial pulses Vascular exam: PRESENT: normal capillary refill GI/Abdominal exam: PRESENT: normal bowel sounds, soft. ABSENT: tenderness Rectal exam: PRESENT: deferred Extremities exam: PRESENT: full ROM. ABSENT: pedal edema Musculoskeletal exam: PRESENT: ambulatory, full ROM Neurological exam: PRESENT: alert, awake, oriented to person, oriented to place, oriented to time, oriented to situation Skin exam: PRESENT: dry, intact Results Laboratory Results: 07/04/18 06:05 07/04/18 06:05 07/04/18 07/04/18 06:05 06:05 WBC 9.4 RBC 3.81 L Hgb 11.9 L Hct 34.4 L MCV 91 MCH 31.2 MCHC 34.4 RDW 14.4 H Plt Count 226 Sodium 142.1 Potassium 4.1 Chloride 108 H Carbon Dioxide 28 Anion Gap 6 BUN 10 Creatinine 0.84 Est GFR ( Amer) > 60 Est GFR (Non-Af Amer) > 60 Glucose 81 Calcium 8.1 L Phosphorus 4.0 Magnesium 1.8 07/02/18 13:20 Forearm - Left Gram Stain - Final 07/02/18 13:38 Forearm - Left Gram Stain - Final 07/02/18 13:22 Forearm - Left Gram Stain - Final 06/29/18 12:21 Blood Blood Culture - Final NO GROWTH IN 5 DAYS 06/29/18 08:52 Blood Blood Culture - Final NO GROWTH IN 5 DAYS 06/29/18 08:52 Creatine Kinase 85 Impressions: Chest X-Ray 06/29/18 00:00 IMPRESSION: Good position of central line. No pneumothorax. Forearm X-Ray 06/29/18 07:26 IMPRESSION: No evidence of acute bony abnormality. Degenerative changes at the 1st and 2nd carpometacarpal joints. Upper Extremity CT 06/30/18 00:00 IMPRESSION: Marked subcutaneous edema. There is also heterogeneous enhancement and density in the extensor compartments distally. Possible small abscess. Not possible to identify individual muscles on CT. Venous Doppler Study 06/30/18 00:00 IMPRESSION: NO EVIDENCE DVT OR SVT LEFT ARM. Upper Extremity MRI 07/01/18 00:00 IMPRESSION: Left forearm abscesses with adjacent myositis of the extensor carpi 3 ulnaris, extensor pollicis muscles and supinator muscles. The Status: Imported from PACS Assessment & Plan - Diagnosis (1) Sepsis Qualifiers: Sepsis type: sepsis due to unspecified organism Qualified Code(s): A41.9 - Sepsis, unspecified organism Is this a current diagnosis for this admission?: Yes Plan: Improving Sepsis secondary to cellulitis of LUE As evidence by HYPOtension, fever, and leukocytosis TMAX 102.7. No fever for > 24hrs Blood cultures no growth at 72 hours Tylenol for fever control Currently on Vancomycin for G+ (MSSA/MSRA) coverage and Unasyn for Pasteurella multocida coverage (cat bite) MRI of LUE reveals 2 abscesses in the left forearm with adjacent myositis of the extensor carpi 3 naris, extensor pollicis and supinator muscles POD#2 I&D abscesses, procedure done by Ortho Sx Initially treated with 2L IVF Bolus followed by maintenance IVF 150mL/hr Weaned from norepinephrine GTT (2) Cellulitis of left forearm Is this a current diagnosis for this admission?: Yes Plan: Unknown etiology at this time Possible IV drug use vs. cat bite Clindamycin initiated in the ED, discontinued and started vancomycin Unasyn added for coverage of Pasteurella multocida (cat bite) US LUE negative for DVT MRI positive for L forearm abscess x 2 POD#2 I&D abscess drainage Wound cultures (+) Group A Beta Strep Lactate 2.5 --> 1.2 no longer trending Maintenance IVF 150mL/hr Elevate extremity to alleviate swelling (3) Leukocytosis Qualifiers: Leukocytosis type: bandemia Qualified Code(s): D72.825 - Bandemia Is this a current diagnosis for this admission?: Yes Plan: Improving. WBC 22-->11 Secondary to sepsis stemming from cellulitis Antibiotics as above TMAX 102.7 Tylenol PRN for fever control Blood cultures no growth Wound cultures pending (4) Hypotension Qualifiers: Hypotension type: unspecified hypotension type Qualified Code(s): I95.9 - Hypotension, unspecified Is this a current diagnosis for this admission?: Yes Plan: Resolved. Patient is normotensive Secondary to hypovolemia/sepsis BP dropped to 75/54 Central line placed and aggressive IVF resuscitation Required norepinephrine gtt, has since been weaned All home dose anti-hypertensives should remain on HOLD (5) VA (acute kidney injury) Is this a current diagnosis for this admission?: Yes Plan: Resolved. Creatinine <1.0 Prerenal. Secondary to hypotension coming from sepsis/cellulitis of LUE Aggressive IVF resuscitation Initially treated with vasopressors for MAP>65, able to wean Daily chemistries No plan for dialysis at this time - Time Time Spent with patient: 15-24 minutes Medications reviewed and adjusted accordingly: Yes Anticipated discharge: Home Within: within 24 hours - Inpatient Certification Based on my medical assessment, after consideration of the patient's comorbi dities, presenting symptoms, or acuity I expect that the services needed warrant INPATIENT care.: Yes I certify that my determination is in accordance with my understanding of Medicare's requirements for reasonable and necessary INPATIENT services [42 CFR 412.3e].: Yes Medical Necessity: Risk of Complication if Not Cared For in Hospital
[2018-07-05] MEDS: AMPICILLIN SODIUM/SULBACTAM NA 3 GM in NORMAL SALINE 100 ML IV SCH ×4 (00:34→17:21)
[2018-07-05] MEDS: NORMAL SALINE 1000 ML 1,000 ML IV PRN ×2 (02:29→21:25)
[2018-07-05] MEDS: VANCOMYCIN HCL 1,250 MG in DEXTROSE 5%-WATER 250 ML IV SCH ×2 (05:50→18:29)
[2018-07-05] MEDS: GABAPENTIN 400 MG CAPSULE PO SCH ×3 (05:50→21:26)
[2018-07-05 06:52] LABS: HEMATOCRIT 33.7 % (37.9-51.0); HEMOGLOBIN 11.6 g/dL (13.5-17.0); MEAN CORPUSCULAR HEMOGLOBIN 31.1 pg (27.0-33.4); MEAN CORPUSCULAR HGB CONC 34.3 g/dL (32.0-36.0); MEAN CORPUSCULAR VOLUME 91 fl (80-97); PLATELET COUNT 241 10^3/uL (150-450); RED BLOOD COUNT 3.71 10^6/uL (4.35-5.55); RED CELL DISTRIBUTION WIDTH 14.4 % (11.5-14.0); WHITE BLOOD COUNT 8.3 10^3/uL (4.0-10.5)
[2018-07-05] MEDS: OXYCODONE-ACETAMINOPHEN 5-325 MG TABLET PO PRN ×4 (07:29→21:57)
[2018-07-05] MEDS: MORPHINE SULFATE 10 MG/ML INJ IV PRN (08:19)
[2018-07-05] MEDS: NICOTINE 21 MG/24 HR PATCH.TD24 TD SCH (10:25)
[2018-07-05] MEDS: ENOXAPARIN SODIUM INJ 40 MG/0.4 ML DISP.SYRIN SUBCUT SCH (10:25)
[2018-07-05] MEDS: OXYCODONE HCL SR 10 MG TABLET PO SCH ×3 (10:25→22:00)
[2018-07-05] MEDS: DIVALPROEX SODIUM 250 MG TABLET.DR PO SCH ×2 (10:26→21:37)
--- NOTE | 2018-07-05 14:56 | Progress Note ---
Provider Note Provider Note: ID Consult Note - Follow up Asked to review chart by Ann Estrada NP. Pt not seen or examined. Mr. Bender was taken to the OR on 07/02/18 for incision fasciotomy and debridement for L forearm abscess and myositis. Cultures taken in the OR revealed growth of Group A Strep and no anaerobes. WBC count has decreased from 22.8 on admission to normal now 8.3. Last fever was on day of surgery 07/02; pt has been afebrile since. Pt is no longer hypotensive, no longer requiring vasopressor support, has been transferred out of the ICU, has had improvement in pain after surgery. His incision is noted to lack erythema or drainage, no evidence of necrosis, and his ROM is intact in digits and wrist. Impression/Recommendations sepsis due to Group A Strep abscess and myositis of the L forearm - s/p debridement on 07/02/17, which is the most important therapeutic intervention in management of an abscess. - Recommend discontinuing IV vancomycin as MRSA was not isolated. - With Group A Strep, in cases of necrotizing infections, penicillin is usually combined with clindamycin. However, I do not think the addition of clindamycin is necessary at this point. At surgery, features of necrotizing fasciitis were not appreciated; instead, myositis and saqib abscess was encountered, which is a less severe presentation. Pt has also been clinically improving since debridement. - Can treat patient with IV penicillin G 24 million units (ask Pharmacy to enter this in as a continuous infusion or do 4 million units IV q4h) while he is an inpatient, instead of IV Unasyn. Group A Strep is highly sensitive to penicillin, and no anaerobes were found. Penicillin is less broad spectrum and might also be associated with less diarrhea. - Duration of therapy is usually in the range of 2-3 weeks, depending on response to therapy. Today is day 6 of treatment. - The entire course does not need to be completed with IV antibiotics. Whenever the patient is ready for discharge home, he can transition to penicillin VK 500 mg PO QID or amoxicillin 500 mg TID PO. Arturo Santos MD [facility] Infectious Diseases pager [phone]
--- NOTE | 2018-07-05 18:10 | PDOC PROGRESS REPORT ---
Subjective Progress Note for:: 07/05/18 Subjective:: Patient has no issues overnight stating improved pain and decreased swelling of left forearm and increased motion of his digits and wrist. Reason For Visit: LEFT FOREARM INFECTION WITH ABSCESS AND MYOSITIS Physical Exam Vital Signs: Temp Pulse Resp BP Pulse Ox 36.7 C 66 16 137/78 H 93 07/05/18 12:02 07/05/18 12:02 07/05/18 12:02 07/05/18 12:02 07/05/18 12:02 Intake & Output 07/04/18 07/05/18 07/06/18 06:59 06:59 06:59 Intake Total 2900 3000 1805 Output Total 2140 2725 300 Balance 232 609 6470 Weight 102.7 kg 101.7 kg General appearance: PRESENT: no acute distress Adult Front & Back Image: 1 - Incision and sutures are dry clean and intact. Erythema has resolved. Swelling significantly decreased. Full range of motion of the elbow with intact pronation supination flexion and extension. Pertaining to the wrist and digits patient has full wrist extension and full wrist flexion with extension and flexion of PIP and DIP of all the digits including the EPL and APL of the thumb. Results Laboratory Results: 07/05/18 05:15 07/04/18 06:05 07/05/18 05:15 WBC 8.3 RBC 3.71 L Hgb 11.6 L Hct 33.7 L MCV 91 MCH 31.1 MCHC 34.3 RDW 14.4 H Plt Count 241 07/02/18 13:38 Forearm - Left Gram Stain - Final 07/02/18 13:38 Forearm - Left Wound Culture - Final Group A Beta Streptococcus No Anaerobic Organisms 07/02/18 13:22 Forearm - Left Gram Stain - Final 07/02/18 13:22 Forearm - Left Wound Culture - Final Group A Beta Streptococcus No Anaerobic Organisms 07/02/18 13:20 Forearm - Left Gram Stain - Final 07/02/18 13:20 Forearm - Left Wound Culture - Final Group A Beta Streptococcus No Anaerobic Organisms 06/29/18 08:52 Creatine Kinase 85 Impressions: Chest X-Ray 06/29/18 00:00 IMPRESSION: Good position of central line. No pneumothorax. Forearm X-Ray 06/29/18 07:26 IMPRESSION: No evidence of acute bony abnormality. Degenerative changes at the 1st and 2nd carpometacarpal joints. Upper Extremity CT 06/30/18 00:00 IMPRESSION: Marked subcutaneous edema. There is also heterogeneous enhancement and density in the extensor compartments distally. Possible small abscess. Not possible to identify individual muscles on CT. Venous Doppler Study 06/30/18 00:00 IMPRESSION: NO EVIDENCE DVT OR SVT LEFT ARM. Upper Extremity MRI 07/01/18 00:00 IMPRESSION: Left forearm abscesses with adjacent myositis of the extensor carpi 3 ulnaris, extensor pollicis muscles and supinator muscles. The Status: Image reviewed by me Assessment & Plan - Diagnosis (1) Abscess of forearm, left Is this a current diagnosis for this admission?: Yes - Plan Summary Plan Summary: 52-year-old gentleman status post I&D of a left forearm abscess and myositis. Patient clinically has improved significantly. Incision is dry clean and intact. Appreciate infectious disease input of ruben to be transitioned to p.o. antibiotics. Patient can be discharged from orthopedic standpoint and follow-up in 1 week.
[2018-07-05] MEDS: LISINOPRIL 10 MG TABLET PO SCH (21:26)
[2018-07-05] MEDS: SIMVASTATIN 10 MG TABLET PO SCH (21:26)
--- NOTE | 2018-07-05 22:49 | PDOC PROGRESS REPORT ---
Subjective Progress Note for:: 07/05/18 Subjective:: ORLANDO PUTNAM is a 52 y.o. 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 He presented to the ED 06/29/2018 with LUE swelling to the forearm, wrist and hand. The patient was admitted for sepsis with the suspected source being cellulitis of the LUE. The patient is POD#3 I&D L forearm abscesses. Upon evaluation this morning, the patient is sitting in the bedside recliner. He is arouable, oriented and able to answer most questions appropriately. Patient states that his LUE is still painful and the patient is asking for stronger pain medication. His LUE swelling has greatly improved. Surgical site it sutured, clean/dry/intact. Wound cultures (+) Group A beta Strep. Appreciate Dr. Santos's recommendations penicillin VK 500 mg PO QID or amoxicillin 500 mg TID PO. Will transition to PO tomorrow and d/c home. . Reason For Visit: LEFT FOREARM INFECTION WITH ABSCESS AND MYOSITIS Physical Exam Vital Signs: Temp Pulse Resp BP Pulse Ox 98 F 71 20 114/64 97 07/05/18 20:00 07/05/18 20:00 07/05/18 20:00 07/05/18 20:00 07/05/18 20:00 Intake & Output 07/04/18 07/05/18 07/06/18 06:59 06:59 06:59 Intake Total 2900 3000 2377 Output Total 2140 2725 1350 Balance 798 612 8063 Weight 102.7 kg 101.7 kg General appearance: PRESENT: no acute distress Head exam: PRESENT: atraumatic Eye exam: PRESENT: conjunctiva pink, PERRLA Mouth exam: PRESENT: moist Neck exam: PRESENT: full ROM Respiratory exam: PRESENT: symmetrical, unlabored Cardiovascular exam: PRESENT: RRR Pulses: PRESENT: normal radial pulses Vascular exam: PRESENT: normal capillary refill GI/Abdominal exam: PRESENT: soft. ABSENT: tenderness Rectal exam: PRESENT: deferred Extremities exam: PRESENT: full ROM. ABSENT: pedal edema Musculoskeletal exam: PRESENT: full ROM, other - LEFT FOREARM INCISION SITE IS SUTURED CLOSED. C/D/I. ARM REMAINS BANDAGED. Neurological exam: PRESENT: alert, awake, oriented to person, oriented to place, oriented to time, oriented to situation Psychiatric exam: PRESENT: appropriate affect Skin exam: PRESENT: dry, intact, normal color Results Laboratory Results: 07/05/18 05:15 07/04/18 06:05 07/05/18 05:15 WBC 8.3 RBC 3.71 L Hgb 11.6 L Hct 33.7 L MCV 91 MCH 31.1 MCHC 34.3 RDW 14.4 H Plt Count 241 07/02/18 13:38 Forearm - Left Gram Stain - Final 07/02/18 13:38 Forearm - Left Wound Culture - Final Group A Beta Streptococcus No Anaerobic Organisms 07/02/18 13:22 Forearm - Left Gram Stain - Final 07/02/18 13:22 Forearm - Left Wound Culture - Final Group A Beta Streptococcus No Anaerobic Organisms 07/02/18 13:20 Forearm - Left Gram Stain - Final 07/02/18 13:20 Forearm - Left Wound Culture - Final Group A Beta Streptococcus No Anaerobic Organisms 06/29/18 08:52 Creatine Kinase 85 Impressions: Chest X-Ray 06/29/18 00:00 IMPRESSION: Good position of central line. No pneumothorax. Forearm X-Ray 06/29/18 07:26 IMPRESSION: No evidence of acute bony abnormality. Degenerative changes at the 1st and 2nd carpometacarpal joints. Upper Extremity CT 06/30/18 00:00 IMPRESSION: Marked subcutaneous edema. There is also heterogeneous enhancement and density in the extensor compartments distally. Possible small abscess. Not possible to identify individual muscles on CT. Venous Doppler Study 06/30/18 00:00 IMPRESSION: NO EVIDENCE DVT OR SVT LEFT ARM. Upper Extremity MRI 07/01/18 00:00 IMPRESSION: Left forearm abscesses with adjacent myositis of the extensor carpi 3 ulnaris, extensor pollicis muscles and supinator muscles. The Status: Imported from PACS Assessment & Plan - Diagnosis (1) Sepsis Qualifiers: Sepsis type: sepsis due to unspecified organism Qualified Code(s): A41.9 - Sepsis, unspecified organism Is this a current diagnosis for this admission?: Yes Plan: Improving Sepsis secondary to cellulitis of LUE As evidence by HYPOtension, fever, and leukocytosis TMAX 102.7. No fever for > 24hrs Blood cultures no growth at 72 hours Tylenol for fever control Currently on Vancomycin for G+ (MSSA/MSRA) coverage and Unasyn for Pasteurella multocida coverage (cat bite). Plan to switch to oral medication and d/c home tomorrow MRI of LUE reveals 2 abscesses in the left forearm with adjacent myositis of the extensor carpi 3 naris, extensor pollicis and supinator muscles POD#3 I&D abscesses, procedure done by Ortho Sx Initially treated with 2L IVF Bolus followed by maintenance IVF 150mL/hr Weaned from norepinephrine GTT (2) Cellulitis of left forearm Is this a current diagnosis for this admission?: Yes Plan: Unknown etiology at this time Possible IV drug use vs. cat bite Clindamycin initiated in the ED, discontinued and started vancomycin Unasyn added for coverage of Pasteurella multocida (cat bite) US LUE negative for DVT MRI positive for L forearm abscess x 2 POD#3 I&D abscess drainage Wound cultures (+) Group A Beta Strep Lactate 2.5 --> 1.2 no longer trending Maintenance IVF 150mL/hr Elevate extremity to alleviate swelling According to ID, can switch patient to PO medication. Plan to do so and d/c patient tomorrow (3) Leukocytosis Qualifiers: Leukocytosis type: bandemia Qualified Code(s): D72.825 - Bandemia Is this a current diagnosis for this admission?: Yes Plan: Improving. WBC 22-->8.3 Secondary to sepsis stemming from cellulitis Antibiotics as above TMAX 102.7 Tylenol PRN for fever control Blood cultures no growth Wound cultures pending (4) Hypotension Qualifiers: Hypotension type: unspecified hypotension type Qualified Code(s): I95.9 - Hypotension, unspecified Is this a current diagnosis for this admission?: Yes Plan: Resolved. Patient is normotensive Secondary to hypovolemia/sepsis BP dropped to 75/54 Central line placed and aggressive IVF resuscitation Required norepinephrine gtt, has since been weaned All home dose anti-hypertensives should remain on HOLD (5) AV (acute kidney injury) Is this a current diagnosis for this admission?: Yes Plan: Resolved. Creatinine <1.0 Prerenal. Secondary to hypotension coming from sepsis/cellulitis of LUE Aggressive IVF resuscitation Initially treated with vasopressors for MAP>65, able to wean Daily chemistries No plan for dialysis at this time - Time Time Spent with patient: 15-24 minutes Medications reviewed and adjusted accordingly: Yes Anticipated discharge: Home - Inpatient Certification Based on my medical assessment, after consideration of the patient's comorbidities, presenting symptoms, or acuity I expect that the services needed warrant INPATIENT care.: Yes I certify that my determination is in accordance with my understanding of Medicare's requirements for reasonable and necessary INPATIENT services [42 CFR 412.3e].: Yes Medical Necessity: Need for IV Antibiotics, Risk of Complication if Not Cared For in Hospital - Plan Summary Plan Summary: switch to oral antibiotics. d/c home tomorrow
[2018-07-05] MEDS ORDERED: AMOXICILLIN TRIHYDRATE 500 MG CAPSULE PO ONE (23:10)
[2018-07-05 23:38] LABS: AMPHETAMINE CONFIRMATION UR Positive (.); CANNABINOID CONFIRMATION UR Positive (.)
[2018-07-06] MEDS ORDERED: AMOXICILLIN TRIHYDRATE 500 MG CAPSULE ONE (00:09)
[2018-07-06] MEDS: GABAPENTIN 400 MG CAPSULE PO SCH ×2 (06:09→13:33)
[2018-07-06] MEDS: OXYCODONE-ACETAMINOPHEN 5-325 MG TABLET PO PRN ×2 (06:09→10:10)
[2018-07-06] MEDS: NORMAL SALINE 1000 ML 1,000 ML IV PRN (06:10)
[2018-07-06] MEDS: AMOXICILLIN TRIHYDRATE 500 MG CAPSULE PO SCH ×2 (06:10→13:33)
[2018-07-06 06:30] LABS: HEMATOCRIT 35.3 % (37.9-51.0); HEMOGLOBIN 12.1 g/dL (13.5-17.0); MEAN CORPUSCULAR HGB CONC 34.2 g/dL (32.0-36.0); MEAN CORPUSCULAR VOLUME 91 fl (80-97); PLATELET COUNT 238 10^3/uL (150-450); RED BLOOD COUNT 3.89 10^6/uL (4.35-5.55); RED CELL DISTRIBUTION WIDTH 14.3 % (11.5-14.0); WHITE BLOOD COUNT 7.8 10^3/uL (4.0-10.5)
[2018-07-06 06:59] LABS: VANCOMYCIN,TROUGH 15.9 ug/mL (5.0-20.0)
[2018-07-06 08:46] VITALS: BP 111/73
[2018-07-06] MEDS: DIVALPROEX SODIUM 250 MG TABLET.DR PO SCH (10:11)
[2018-07-06] MEDS: NICOTINE 21 MG/24 HR PATCH.TD24 TD SCH (10:11)
[2018-07-06] MEDS: ENOXAPARIN SODIUM INJ 40 MG/0.4 ML DISP.SYRIN SUBCUT SCH (10:11)
--- NOTE | 2018-07-08 15:04 | PDOC DISCHARGE SUMMARY ---
General - Admit/Disc Date/PCP Admission Date/Primary Care Provider: 06/29/18 11:14 ROMAN PRAJAPATI MD Discharge Date: 07/06/18 - Discharge Diagnosis (1) AV (acute kidney injury) Is this a current diagnosis for this admission?: Yes Summary: Resolved. Creatinine <1.0 Prerenal. Secondary to hypotension coming from sepsis/cellulitis of LUE Patient was initially treated with vasopressors to maintain map greater than 65; weaned off and continued IV fluids until hypotension and creatinine subsequently returned to normal. (2) Cellulitis of left forearm Is this a current diagnosis for this admission?: Yes Summary: Unknown etiology at this time; Possible IV drug use vs. cat bite Clindamycin initiated in the ED, discontinued and started vancomycin Unasyn added for coverage of Pasteurella multocida (cat bite) US LUE negative for DVT MRI positive for L forearm abscess x 2 POD#4 I&D abscess drainage by Ortho. Wound cultures (+) Group A Beta Strep Lactate 2.5 --> 1.2; sepsis resolved Infectious disease was consulted; have recommended transition to amoxicillin for completion of antibiotic course. Pt is recommended to continue daily dry dressing changes. Patient to follow up with Dr. Sabrina Kelley within 1 week. (3) Hypotension Is this a current diagnosis for this admission?: Yes Summary: Resolved. Patient is normotensive Secondary to hypovolemia/sepsis; patient was initially managed with IVF resuscitation and norepinephrine. His home dose antihypertensives were held; blood pressure improved. His home medications were resumed and he was maintaining acceptable blood pressures at time of discharge. (4) Leukocytosis Is this a current diagnosis for this admission?: Yes Summary: Resolved. WBC 22-->8.3 Secondary to sepsis stemming from cellulitis (5) Sepsis Is this a current diagnosis for this admission?: Yes Summary: Resolved. Sepsis secondary to cellulitis of LUE As evidence by HYPOtension, fever, and leukocytosis TMAX 102.7. No fever for > 24hrs Blood cultures no growth (final) MRI of LUE reveals 2 abscesses in the left forearm with adjacent myositis of the extensor carpi 3 naris, extensor pollicis and supinator muscles POD#4 I&D abscesses, procedure done by Ortho Sx Initially treated with Vancomycin for G+ (MSSA/MSRA) coverage and Unasyn for Pasteurella multocida coverage (cat bite). Transitioned to amoxicillin for completion of antibiotic course as outpatient. - Additional Information Resuscitation Status: Full Code Prescriptions: Amoxicillin Trihydrate [Amoxil 500 mg Capsule] 500 mg PO Q8 #42 capsule Nicotine [Nicoderm 21 mg/24 Hr Transderm Patch] 1 each TD DAILY #30 patch.td24 Oxycodone HCl/Acetaminophen [Percocet 5-325 mg Tablet] 1 - 2 tab PO Q4HP PRN #25 tablet PRN Reason: Home Medications: Divalproex Sodium [Depakote] 500 mg PO Q12 03/23/18 Gabapentin [Neurontin] 800 mg PO Q8 03/23/18 Lisinopril [Prinivil 10 mg Tablet] 10 mg PO QHS 03/23/18 Meloxicam [Mobic] 7.5 mg PO DAILY 03/23/18 Simvastatin [Zocor 20 mg Tablet] 20 mg PO QHS 03/23/18 Acetaminophen [Tylenol 325 mg Tablet] 650 mg PO Q4HP PRN tablet 07/06/18 Amoxicillin Trihydrate [Amoxil 500 mg Capsule] 500 mg PO Q8 #42 capsule 07/06/18 Nicotine [Nicoderm 21 mg/24 Hr Transderm Patch] 1 each TD DAILY #30 patch.td24 07/06/18 Oxycodone HCl/Acetaminophen [Percocet 5-325 mg Tablet] 1 - 2 tab PO Q4HP PRN #25 tablet 07/06/18 History of Present Illness History of Present Illness: Per H&P by hazel Estrada, [employer]: ORLANDO PUTNAM SR is a 52 year old male who presented to the emergency department with left upper extremity swelling. The patient states he first noticed swelling to his left hand, wrist and forearm beginning 3 days ago. The patient is a poor historian and his speech is difficult to understand. He is unable to explain cause for his LUE swelling. Of note, there are a number of small puncture sites on his hands overlying his veins. The patient denies IV drug use when questioned. He states he lives with a cat but unable to remember if he sustained a cat bite. Upon assessment, the patient's L hand, wrist and forearm are edematous. Mild circumferential redness to the L forearm, does not extend to the wrist or hand. 2+ palpable radial pulses. Patient reports plain upon flexion/extension of wrist and fingers. Plan to admit to hospitalist service for IV antibiotics and US of LUE to rule out DVT. Physical Exam Vital Signs: Temp Pulse Resp BP Pulse Ox 98.0 F 59 L 14 111/73 98 07/06/18 07:56 07/06/18 07:56 07/06/18 07:56 07/06/18 07:56 07/06/18 07:56 Intake & Output 07/07/18 07/08/18 07/09/18 06:59 06:59 06:59 Intake Total 1000 Balance 1000 General appearance: PRESENT: no acute distress, well-developed, well-nourished - Overweight Head exam: PRESENT: atraumatic, normocephalic Eye exam: PRESENT: conjunctiva pink, EOMI, PERRLA. ABSENT: scleral icterus Ear exam: PRESENT: normal external ear exam Mouth exam: PRESENT: moist, tongue midline Neck exam: ABSENT: carotid bruit, JVD, lymphadenopathy, thyromegaly Respiratory exam: PRESENT: clear to auscultation neri, symmetrical, unlabored. ABSENT: rales, rhonchi, wheezes Cardiovascular exam: PRESENT: RRR, +S1, +S2. ABSENT: diastolic murmur, rubs, systolic murmur Pulses: PRESENT: normal dorsalis pedis pul Vascular exam: PRESENT: normal capillary refill GI/Abdominal exam: PRESENT: normal bowel sounds, soft. ABSENT: distended, guarding, mass, organolmegaly, rebound, tenderness Rectal exam: PRESENT: deferred Extremities exam: PRESENT: full ROM. ABSENT: calf tenderness, clubbing, pedal edema Musculoskeletal exam: PRESENT: other - Left forearm incision site sutured; clean dry and intact, no surrounding erythema or drainage at present. Edema to wrist and hand has resolved. Neurological exam: PRESENT: alert, awake, oriented to person, oriented to place, oriented to time, oriented to situation, CN II-XII grossly intact. ABSENT: motor sensory deficit Psychiatric exam: PRESENT: appropriate affect, normal mood. ABSENT: homicidal ideation, suicidal ideation Skin exam: PRESENT: dry, warm. ABSENT: cyanosis, rash Results Laboratory Results: 07/06/18 05:45 07/06/18 05:45 06/29/18 08:52 Creatine Kinase 85 Impressions: Chest X-Ray 06/29/18 00:00 IMPRESSION: Good position of central line. No pneumothorax. Forearm X-Ray 06/29/18 07:26 IMPRESSION: No evidence of acute bony abnormality. Degenerative changes at the 1st and 2nd carpometacarpal joints. Upper Extremity CT 06/30/18 00:00 IMPRESSION: Marked subcutaneous edema. There is also heterogeneous enhancement and density in the extensor compartments distally. Possible small abscess. Not possible to identify individual muscles on CT. Venous Doppler Study 06/30/18 00:00 IMPRESSION: NO EVIDENCE DVT OR SVT LEFT ARM. Upper Extremity MRI 07/01/18 00:00 IMPRESSION: Left forearm abscesses with adjacent myositis of the extensor carpi 3 ulnaris, extensor pollicis muscles and supinator muscles. The Qualifiers - * PATIENT BEING DISCHARGED WITH ANY OF THE FOLLOWING DIAGNOSIS: No Plan Discharge Plan: Discharged home with self-care. Complete course of amoxicillin; continue clean dry dressings daily and as needed. Follow-up with Dr. Sabrina Kelley within 7-10 days. Follow-up with primary care provider within 1 week. Time Spent: Less than 30 Minutes
== END 2018-07-06 16:15 | disposition home or self-care (01) | DRG 854 ==
LOC: ER 05:52 → EH 11:14 → 4W 13:28 → ICU 06-30 03:40 → 3N 07-03 19:28
PROVIDERS: ADMIT Hospitalist; ATTEND Hospitalist
PROC: 02HV33Z Insertion of Infusion Device into Superior Vena Cava, Percutaneous Approach (ICD-10-PCS; 2018-06-29)
PROC: 0JBH0ZZ Excision of Left Lower Arm Subcutaneous Tissue and Fascia, Open Approach (ICD-10-PCS; 2018-07-02)
PROC: 0J9H0ZZ Drainage of Left Lower Arm Subcutaneous Tissue and Fascia, Open Approach (ICD-10-PCS; 2018-07-02)
PROC: 0KBB0ZZ Excision of Left Lower Arm and Wrist Muscle, Open Approach (ICD-10-PCS; principal; 2018-07-02 12:30)
DX: A41.9 Sepsis, unspecified organism (principal); L03.114 Cellulitis of left upper limb; N17.9 Acute kidney failure, unspecified; L02.414 Cutaneous abscess of left upper limb; M60.9 Myositis, unspecified; E78.5 Hyperlipidemia, unspecified; I10 Essential (primary) hypertension; F32.9 Major depressive disorder, single episode, unspecified; Z87.820 Personal history of traumatic brain injury; F17.200 Nicotine dependence, unspecified, uncomplicated; Z79.899 Other long term (current) drug therapy; Z88.1 Allergy status to other antibiotic agents
CPT/HCPCS: 01810; 36415; 71045; 80048; 80053; 80202; 80307; 80349; 81001; 82550; 82565; 83605; 83735; 84100; 85025; 85027; 87040; 87070; 87075; 87077; 87205; 93971; 96365; 96366; 96375; 99284; C1751; G0480; J0295; J0330; J1100; J1170; J1642; J1650; J1885; J2250; J2270; J2405; J2704; J3010; J3370; J3475; J3480; J3490; J7030; J7060

== ENCOUNTER → 2018-08-13 | Outpatient (CLI) | payer MEDICARE, MEDICAID ==
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
--- NOTE | 2018-08-13 11:39 | RADIOLOGY REPORT (SQ) ---
EXAM DESCRIPTION: KNEE LEFT 4 VIEW COMPLETED DATE/TIME: 08/13/2018 11:27 am REASON FOR STUDY: DJD L KNEE COMPARISON: 01/17/2015 NUMBER OF VIEWS: Four views. TECHNIQUE: AP, lateral, and both oblique radiographic images acquired of the left knee. LIMITATIONS: None. FINDINGS: MINERALIZATION: Normal. BONES: No acute fracture or dislocation. No worrisome bone lesions. JOINT: There is joint space narrowing in all compartments. No joint effusion. SOFT TISSUES: No soft tissue swelling. No radio-opaque foreign body. OTHER: No other significant finding. IMPRESSION: Osteoarthritic changes involving all compartments. Findings have progressed when compar ed to 2015. TECHNICAL DOCUMENTATION: JOB ID: [id number] [employer]- All Rights Reserved Reading location - IP/workstation name: [email or web address]
== END ==
LOC: RAD 11:00
PROVIDERS: ATTEND Obstetrics & Gynecology
DX: M17.12 Unilateral primary osteoarthritis, left knee (principal); S69.92XA Unspecified injury of left wrist, hand and finger(s), initial encounter; X58.XXXA Exposure to other specified factors, initial encounter; Y93.9 Activity, unspecified; Y92.9 Unspecified place or not applicable

== ENCOUNTER 2019-02-04 05:02 | Emergency (ER) | payer MEDICARE, MEDICAID ==
[2019-02-04] MEDS ORDERED: NORMAL SALINE 1000 ML 1,000 ML IV ONE (06:27)
[2019-02-04] MEDS ORDERED: ONDANSETRON HCL INJ/PF 4 MG/2 ML SDV IV ONE (06:27)
[2019-02-04] MEDS ORDERED: KETOROLAC TROMETHAMINE INJ/PF 30 MG/1 ML SDV IV ONE (06:27)
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
[2019-02-04 06:36] LABS: ABSOLUTE EOSINOPHILS # (AUTO) 0.2 10^3/uL (0.0-0.6); ABSOLUTE LYMPHOCYTES (AUTO) 0.9 10^3/uL (0.5-4.7); ABSOLUTE MONOCYTES (AUTO) 0.7 10^3/uL (0.1-1.4); ABSOLUTE NEUT (AUTO) 6.2 10^3/uL (1.7-8.2); BASOPHILS % (AUTO) 0.5 % (0-2); EOSINOPHILS % (AUTO) 2.2 % (0-6); LYMPHOCYTES % (AUTO) 11.3 % (13-45); MEAN CORPUSCULAR HEMOGLOBIN 32.5 pg (27.0-33.4); MEAN CORPUSCULAR HGB CONC 34.2 g/dL (32.0-36.0); MEAN CORPUSCULAR VOLUME 95 fl (80-97); MONOCYTES % (AUTO) 8.3 % (3-13); RED BLOOD COUNT 4.32 10^6/uL (4.35-5.55); RED CELL DISTRIBUTION WIDTH 13.8 % (11.5-14.0); SEGMENTED NEUTROPHILS % (AUTO) 77.7 % (42-78); TOTAL CELLS COUNTED % (AUTO) 100 %
[2019-02-04 06:48] LABS: ALKALINE PHOSPHATASE 54 U/L (38-126); ANION GAP 12 (5-19); ASPARTATE AMINO TRANSFERASE 68 U/L (17-59); BILIRUBIN,DIRECT 0.3 mg/dL (0.0-0.4); BILIRUBIN,TOTAL 1.3 mg/dL (0.2-1.3); BLOOD UREA NITROGEN 31 mg/dL (7-20); CARBON DIOXIDE 24 mmol/L (22-30); CHLORIDE 101 mmol/L (98-107); GLUCOSE 114 mg/dL (75-110)
[2019-02-04 07:07] LABS: PLATELET COUNT 81 10^3/uL (150-450)
--- NOTE | 2019-02-04 07:48 | RADIOLOGY REPORT (SQ) ---
EXAM DESCRIPTION: CT ABDOMEN PELVIS WITH IV CONTRAST COMPLETED DATE/TME: 02/04/2019 00:00 CLINICAL HISTORY: 53 years, Male, abdominal pain COMPARISON: 11/13/2012 TECHNIQUE: Axial CT images of the abdomen and pelvis were obtained after the injection of IV contrast. Sagittal and coronal reformats were performed. DLP 1540 Images stored on PACS. All CT scanners at this facility use dose modulation, iterative reconstruction, and/or weight based dosing when appropriate to reduce radiation dose to as low as reasonably achievable (ALARA). [facility]: Dose Right [facility]: CareDose [facility]: Dose Right [facility]: Teradose 4D [facility]: Bi02 Medical LIMITATIONS: None. FINDINGS: The lung bases are clear. There is a curvilinear calcification near the dome of the liver. There is a small amount of air within left portal vein. The gallbladder, pancreas, spleen, and adrenal glands are unremarkable. There is bilateral nonobstructing nephrolithiasis. There is no intraperitoneal free air. There is a mild amount of free fluid. The abdominal aorta is normal in caliber. An IVC filter is in place. The stomach appears unremarkable. Small bowel is dilated measuring up to 3.4 cm in diameter with air-fluid levels. No definite transition point is identified. The appendix is not uniquely identified. The colon is mildly distended and contains fluid. The urinary bladder and prostate gland are unremarkable. There are no lytic or blastic bone lesions. Old healed right-sided rib fractures are again noted. IMPRESSION: Mild dilatation of the small bowel with air-fluid levels with mild distention of the fluid-filled colon. No definite transition point is identified. This may be due to an obstruction or enterocolitis/diarrhea. Mild amount of free fluid within the pelvis, which is abnormal with no clear source identified. Bilateral nonobstructing nephrolithiasis. TECHNICAL DOCUMENTATION: Quality ID # [id number]: Final reports with documentation of one or more dose reduction techniques (e.g., Automated exposure control, adjustment of the mA and/or kV according to patient size, use of iterative reconstruction technique) copyright 2011 [employer]- All Rights Reserved
[2019-02-04 11:06] LABS: APPEARANCE,URINE CLEAR; BILIRUBIN,URINE NEGATIVE (NEGATIVE); COLOR,URINE YELLOW; GLUCOSE, URINE NEGATIVE (NEGATIVE); KETONES,URINE TRACE mg/dL (NEGATIVE); LEUKOCYTE ESTERASE,URINE NEGATIVE (NEGATIVE); NITRITE,URINE NEGATIVE (NEGATIVE); PROTEIN,URINE NEGATIVE (NEGATIVE)
[2019-02-04 11:10] LABS: URINE SPECIFIC GRAVITY > 1.060
[2019-02-04 12:09] VITALS: BP 100/66
== END 2019-02-04 12:09 | disposition home or self-care (01) ==
LOC: ER 05:02
DX: R10.30 Lower abdominal pain, unspecified (principal); R11.2 Nausea with vomiting, unspecified; R19.7 Diarrhea, unspecified; R10.817 Generalized abdominal tenderness; F17.200 Nicotine dependence, unspecified, uncomplicated; I10 Essential (primary) hypertension; Z87.442 Personal history of urinary calculi; Z98.890 Other specified postprocedural states; Z88.1 Allergy status to other antibiotic agents
CPT/HCPCS: 99284; 96361; 96374; 96375; 36415; 83690; 85025; 80053; 81001; 74177; J1885; J2405; J7030

== ENCOUNTER 2019-09-06 14:45 | Emergency (ER) | payer MEDICARE, MEDICAID ==
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
--- NOTE | 2019-09-06 15:40 | RADIOLOGY REPORT (SQ) ---
EXAM DESCRIPTION: CT HEAD WITHOUT IMAGES COMPLETED DATE/TIME: 09/06/2019 3:29 pm REASON FOR STUDY: Head injury, +LOC COMPARISON: 03/23/2018 TECHNIQUE: Axial images acquired through the brain without intravenous contrast. Images reviewed wi th bone, brain and subdural windows. Additional sagittal and coronal reconstructions were generated. Images stored on PACS. All CT scanners at this facility use dose modulation, iterative reconstruction, and/or weight based d osing when appropriate to reduce radiation dose to as low as reasonably achievable (ALARA). [facility]: Dose Right [facility]: CareDose [facility]: Dose Right [facility]: Teradose 4D [facility]: En[employer] RADIATION DOSE: CT Rad equipment meets quality standard of care and radiation dose reduction techniq ues were employed. CTDIvol: 53.2 mGy. DLP: 1070 mGy-cm. mGy. LIMITATIONS: None. FINDINGS: VENTRICLES: Normal size and contour. CEREBRUM: No masses. No hemorrhage. No midline shift. No evidence for acute infarction. Normal gra y/white matter differentiation. No areas of low density in the white matter. CEREBELLUM: No masses. No hemorrhage. No alteration of density. No evidence for acute infarction. EXTRAAXIAL SPACES: No fluid collections. No masses. ORBITS AND GLOBE: No intra- or extraconal masses. Normal contour of globe without masses. CALVARIUM: Prior right-sided craniotomy. PARANASAL SINUSES: No fluid or mucosal thickening. SOFT TISSUES: No mass or hematoma. OTHER: Old right-sided facial fractures. IMPRESSION: No acute intracranial event. EVIDENCE OF ACUTE STROKE: NO. COMMENT: Quality ID # [id number]: Final reports with documentation of one or more dose reduction techniques (e.g., Automated exposure control, adjustment of the mA and/or kV according to patient size, use of iterative reconstruction technique) TECHNICAL DOCUMENTATION: JOB ID: [id number] 2010 [employer]- All Rights Reserved Reading location - IP/workstation name: [email or web address]
--- NOTE | 2019-09-06 17:10 | RADIOLOGY REPORT (SQ) ---
EXAM DESCRIPTION: T SPINE AP/LAT IMAGES COMPLETED DATE/TIME: 09/06/2019 4:56 pm REASON FOR STUDY: fall, back pain COMPARISON: 05/15/2014 NUMBER OF VIEWS: Two views. TECHNIQUE: AP and lateral radiographic images acquired of the thoracic spine. LIMITATIONS: None. FINDINGS: MINERALIZATION: Normal. ALIGNMENT: Dextroconvex scoliosis of the thoracic spine. VERTEBRAE: No fracture or bone lesion. Maintained height, normal segmentation. DISCS: Multilevel disc space narrowing mid-lower thoracic spine. Mildly prominent anterior osteophy fito. HARDWARE: None in the spine. MEDIASTINUM AND SOFT TISSUES: Normal heart size and aortic contour. No soft tissue abnormality. VISUALIZED LUNG BELL: Clear. OTHER: No other significant finding. IMPRESSION: 1. No significant interval changes since the prior study dated 05/15/2014. Dextroconve x scoliosis and accompanying degenerative thoracic spondylosis. 2. No acute osseous findings. TECHNICAL DOCUMENTATION: JOB ID: [id number] 2010 [employer]- All Rights Reserved Reading location - IP/workstation name: [email or web address]
--- NOTE | 2019-09-06 17:16 | RADIOLOGY REPORT (SQ) ---
EXAM DESCRIPTION: L SPINE WHOLE IMAGES COMPLETED DATE/TIME: 09/06/2019 4:56 pm REASON FOR STUDY: fall, back pain COMPARISON: 01/10/2007 NUMBER OF VIEWS: Five views including obliques. TECHNIQUE: AP, lateral, oblique, and sacral radiographic images acquired of the lumbar spine. LIMITATIONS: None. FINDINGS: MINERALIZATION: Normal. SEGMENTATION: Normal. No transitional anatomy. ALIGNMENT: There is either tilting and the levoconvex scoliosis of the lumbar spine. VERTEBRAE: Maintained height. No fracture or worrisome bone lesion. DISCS: Multilevel mild to moderate disc space narrowing with minimal the very small anterior osteoph ytes. POSTERIOR ELEMENTS: Pedicles and facets are intact. No pars defect or posterior arch defects. HARDWARE: None in the spine. PARASPINAL SOFT TISSUES: Normal. PELVIS: Intact as visualized. No fractures or worrisome bone lesions. SI joints intact. OTHER: IVC filter to the right of the L1-L2 vertebral bodies, unchanged finding. Left renal calcifi cations, unchanged finding. IMPRESSION: 1. Degenerative mild to moderate disc space narrowing suggested. These findings have p rogressed since the previous examination dated 01/10/2007. 2. No acute osseous findings. 3. Stable left renal calculi. 4. Additional findings as above. TECHNICAL DOCUMENTATION: JOB ID: [id number] 2010 [employer]- All Rights Reserved Reading location - IP/workstation name: [email or web address]
--- NOTE | 2019-09-06 17:17 | RADIOLOGY REPORT (SQ) ---
EXAM DESCRIPTION: KNEE RIGHT 4 VIEWS IMAGES COMPLETED DATE/TIME: 09/06/2019 3:56 pm REASON FOR STUDY: fall, r knee pain COMPARISON: None. NUMBER OF VIEWS: Four views. TECHNIQUE: AP, lateral, and both oblique radiographic images acquired of the right knee. LIMITATIONS: None. FINDINGS: MINERALIZATION: Normal. BONES: No acute fracture or cortical disruption. Moderate tricompartmental osteoarthritis with paul nal osteophytes. Bony spurring of the tibial spines. JOINT: No joint effusion. Several small intra-articular loose bodies. SOFT TISSUES: No soft tissue swelling. No radio-opaque foreign body. OTHER: No other significant finding. IMPRESSION: No acute fracture or dislocation of the left knee. Moderate tricompartmental osteoarthr itis and small intra-articular loose bodies. TECHNICAL DOCUMENTATION: JOB ID: [id number] 2010 [employer]- All Rights Reserved Reading location - IP/workstation name: [email or web address]
--- NOTE | 2019-09-06 17:18 | RADIOLOGY REPORT (SQ) ---
EXAM DESCRIPTION: CERV SP 3 VIEW OR LESS IMAGES COMPLETED DATE/TIME: 09/06/2019 3:56 pm REASON FOR STUDY: fall, neck pain COMPARISON: None. NUMBER OF VIEWS: Three views. TECHNIQUE: AP, cross-table lateral and odontoid radiographic images acquired of the cervical spine. LIMITATIONS: None. FINDINGS: MINERALIZATION: Normal. ALIGNMENT: Anatomic. VERTEBRAE: No acute fracture or loss of vertebral body height. Spondylosis with bridging marginal os teophytes, subchondral sclerosis and cystic change at the endplates. DISCS: Degenerative disc disease with loss of intervertebral disc heights. HARDWARE: None in the spine. SOFT TISSUES: No masses or calcifications. Lung apices clear. OTHER: No other significant finding. IMPRESSION: Degenerative disc disease and spondylosis in the cervical spine. No acute fracture or d islocation. TECHNICAL DOCUMENTATION: JOB ID: [id number] 2010 [employer]- All Rights Reserved Reading location - IP/workstation name: [email or web address]
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
[2019-09-06] MEDS ORDERED: HYDROCODONE/ACETAMINOPHEN 5-325 MG (6 TAB/ER DISP) PO PRN (17:49)
[2019-09-06] MEDS ORDERED: HYDROCODONE/ACETAMINOPHEN 5-325 MG TABLET PO ONE (17:49)
[2019-09-06 18:11] VITALS: BP 125/75
== END 2019-09-06 18:10 | disposition home or self-care (01) ==
LOC: ER 14:45
DX: S09.90XA Unspecified injury of head, initial encounter (principal); M25.561 Pain in right knee; W01.198A Fall on same level from slipping, tripping and stumbling with subsequent striking against other object, initial encounter; F17.210 Nicotine dependence, cigarettes, uncomplicated; E78.00 Pure hypercholesterolemia, unspecified; I10 Essential (primary) hypertension; Z88.3 Allergy status to other anti-infective agents; Z87.820 Personal history of traumatic brain injury; Z87.442 Personal history of urinary calculi
CPT/HCPCS: 99284; 72040; 73564; 72110; 72070; 70450; A9270 ×2

== ENCOUNTER 2020-01-21 09:22 | Emergency (ER) | payer MEDICARE, MEDICAID ==
[2020-01-21 10:15] LABS: ABSOLUTE BASOPHILS # (AUTO) 0.1 10^3/uL (0.0-0.2); ABSOLUTE MONOCYTES (AUTO) 1.2 10^3/uL (0.1-1.4); ABSOLUTE NEUT (AUTO) 6.8 10^3/uL (1.7-8.2); BASOPHILS % (AUTO) 0.8 % (0-2); EOSINOPHILS % (AUTO) 0.2 % (0-6); HEMATOCRIT 42.1 % (37.9-51.0); HEMOGLOBIN 14.7 g/dL (13.5-17.0); LYMPHOCYTES % (AUTO) 19.9 % (13-45); MEAN CORPUSCULAR HEMOGLOBIN 32.5 pg (27.0-33.4); MEAN CORPUSCULAR VOLUME 93 fl (80-97); MONOCYTES % (AUTO) 11.7 % (3-13); PLATELET COUNT 114 10^3/uL (150-450); RED BLOOD COUNT 4.53 10^6/uL (4.35-5.55); RED CELL DISTRIBUTION WIDTH 13.6 % (11.5-14.0); SEGMENTED NEUTROPHILS % (AUTO) 67.4 % (42-78); TOTAL CELLS COUNTED % (AUTO) 100 %
[2020-01-21 10:23] LABS: ALBUMIN 4.4 g/dL (3.5-5.0); ALKALINE PHOSPHATASE 70 U/L (38-126); ANION GAP 9 (5-19); ASPARTATE AMINO TRANSFERASE 49 U/L (17-59); BILIRUBIN,DIRECT 0.3 mg/dL (0.0-0.4); BILIRUBIN,TOTAL 0.7 mg/dL (0.2-1.3); BLOOD UREA NITROGEN 15 mg/dL (7-20); CALCIUM 9.7 mg/dL (8.4-10.2); CARBON DIOXIDE 23 mmol/L (22-30); CHLORIDE 102 mmol/L (98-107); GLUCOSE 112 mg/dL (75-110); POTASSIUM 4.3 mmol/L (3.6-5.0); TOTAL PROTEIN 7.3 g/dL (6.3-8.2)
[2020-01-21] MEDS ORDERED: MORPHINE SULFATE 10 MG/ML INJ IV ONE (10:26)
[2020-01-21] MEDS ORDERED: NORMAL SALINE 1000 ML 1,000 ML IV ONE (10:26)
[2020-01-21] MEDS ORDERED: KETOROLAC TROMETHAMINE INJ/PF 30 MG/1 ML SDV IV ONE (10:28)
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
--- NOTE | 2020-01-21 11:28 | RADIOLOGY REPORT (SQ) ---
EXAM DESCRIPTION: CT ABD/PELVIS NO ORAL OR IV IMAGES COMPLETED DATE/TIME: 01/21/2020 11:07 am REASON FOR STUDY: flank pain COMPARISON: CT abdomen pelvis 11/13/2012, 04/26/2012 TECHNIQUE: CT scan of the abdomen and pelvis performed without intravenous or oral contrast. Images reviewed with lung, soft tissue, and bone windows. Reconstructed coronal and sagittal MPR images revi ewed. All images stored on PACS. All CT scanners at this facility use dose modulation, iterative reconstruction, and/or weight based d osing when appropriate to reduce radiation dose to as low as reasonably achievable (ALARA). [facility]: Dose Right [facility]: CareDose [facility]: Dose Right [facility]: Teradose 4D [facility]: [employer] RADIATION DOSE: CT Rad equipment meets quality standard of care and radiation dose reduction techniq ues were employed. CTDIvol: 10.6 mGy. DLP: 662 mGy-cm.mGy. LIMITATIONS: None. FINDINGS: LOWER CHEST: No significant findings. No nodules or infiltrates. NON-CONTRASTED LIVER, SPLEEN, ADRENALS: Evaluation limited by lack of IV contrast. No identified sign ificant masses. PANCREAS: No masses. No peripancreatic inflammatory changes. GALLBLADDER: No identified stones by CT criteria. No inflammatory changes to suggest cholecystitis. RIGHT KIDNEY AND URETER: No suspicious masses. Assessment limited by lack of IV contrast. 3 mm righ t upper pole intrarenal nonobstructive stone. No hydronephrosis or hydroureter. LEFT KIDNEY AND URETER: No suspicious masses. Assessment limited by lack of IV contrast. 16 mm left renal pelvis stone abutting the ureteropelvic junction, with mild left hydronephrosis. No perinephr ic stranding. No left ureteral stones AORTA AND RETROPERITONEUM: No aneurysm. No retroperitoneal masses or adenopathy. IVC filter, stress protruding beyond the wall of the IVC on coronal image 41, similar compared to both prior exams. BOWEL AND PERITONEAL CAVITY: No obvious masses or inflammatory changes. No free fluid. Left colon di verticuli without CT signs of acute diverticulitis APPENDIX: Normal. PELVIS, BLADDER, AND ABDOMINAL WALL:No abnormal masses. No free fluid. Bladder normal. Patient has h ad a diaphragmatic hernia repair with mesh under the right hemidiaphragm. There is also dystrophic c alcification along the anterior abdominal wall subxiphoid region extending into the medial aspect rec tus muscle sheath, likely from old trauma BONES: No significant findings. OTHER: No other significant finding. IMPRESSION: 16 mm left renal pelvis stone, now at the [facility] with mild left-sided hydronephrosis. No p erinephric stranding COMMENT: Quality ID # [id number]: Final reports with documentation of one or more dose reduction techniques (e.g., Automated exposure control, adjustment of the mA and/or kV according to patient size, use of iterative reconstruction technique) TECHNICAL DOCUMENTATION: JOB ID: [id number] 2010 [employer]- All Rights Reserved Reading location - IP/workstation name: [email or web address]
[2020-01-21] MEDS ORDERED: HYDROMORPHONE HCL INJ/PF 2 MG/ML AMPULE IV ONE (11:46)
[2020-01-21 11:55] LABS: AMORPHOUS SEDIMENT,URINE TRACE /HPF; APPEARANCE,URINE SLIGHTLY-CLOUDY; BILIRUBIN,URINE NEGATIVE (NEGATIVE); COLOR,URINE YELLOW; GLUCOSE, URINE NEGATIVE (NEGATIVE); KETONES,URINE TRACE mg/dL (NEGATIVE); LEUKOCYTE ESTERASE,URINE NEGATIVE (NEGATIVE); NITRITE,URINE NEGATIVE (NEGATIVE); PROTEIN,URINE 100 mg/dL (NEGATIVE); URINE SPECIFIC GRAVITY 1.019
[2020-01-21 12:08] LABS: URINE AMPHETAMINES SCREEN NEGATIVE; URINE BARBITURATES SCREEN NEGATIVE; URINE BENZODIAZEPINES SCREEN NEGATIVE; URINE COCAINE SCREEN UNCONFIRMED POSITIVE; URINE MARIJUANA (THC) SCREEN UNCONFIRMED POSITIVE; URINE METHADONE SCREEN NEGATIVE; URINE PHENCYCLIDINE SCREEN NEGATIVE
[2020-01-21 13:05] VITALS: BP 120/72
== END 2020-01-21 13:04 | disposition home or self-care (01) ==
LOC: ER 09:22
DX: N13.2 Hydronephrosis with renal and ureteral calculous obstruction (principal); F17.200 Nicotine dependence, unspecified, uncomplicated; I10 Essential (primary) hypertension; Z88.1 Allergy status to other antibiotic agents
CPT/HCPCS: 99285; 96361; 96374; 96375; 36415; 83690; 85025; 80053; 81001; 80307; 74176; J1885; J1170; J7030

== ENCOUNTER → 2020-02-02 | Outpatient (CLI) | payer MEDICARE, MEDICAID ==
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
[2020-02-02 10:02] VITALS: BP 110/68
== END ==
LOC: RDC 09:28
PROVIDERS: ATTEND Nurse Practitioner Family
DX: Z20.828 Contact with and (suspected) exposure to other viral communicable diseases (principal); I10 Essential (primary) hypertension; E78.00 Pure hypercholesterolemia, unspecified; F17.200 Nicotine dependence, unspecified, uncomplicated; Z86.69 Personal history of other diseases of the nervous system and sense organs; Z87.820 Personal history of traumatic brain injury; Z88.1 Allergy status to other antibiotic agents
CPT/HCPCS: U0003; C9803; 87635; 99201; 99211

== ENCOUNTER 2020-02-07 07:36 | Day surgery (SDC) | payer MEDICARE, MEDICAID ==
[2020-02-07] MEDS ORDERED: PROPOFOL INJ 200 MG/20 ML VIAL IV ONE (07:43)
--- NOTE | 2020-02-07 10:35 | Operative Report ---
Operative Report DATE OF SURGERY: 02/07/20 Operative Report: The risk, benefits and alternatives of the procedure including the risk of bleeding, perforation requiring surgery have been explained to the patient in detail and informed consent has been obtained. Patient is taken back to the endoscopy suite and placed in a left, lateral decubital position. Timeout was called. Propofol medication is administered. Rectal examination is done which did not reveal any masses, tears or fissures. An Olympus videoscope was introduced into the patient's rectum. Scope was then carefully advanced all the way to the cecum. The cecum was identified by the usual anatomical landmarks including the ileocecal valve as well as the appendiceal office. Photodocumentation is obtained. Scope was then sequentially pulled back via the various segments of the colon including the ascending colon, hepatic flexure, transverse colon, splenic flexure, descending colon and finally into the rectosigmoid portions of the colon. Retroflexion maneuvers performed. PREOPERATIVE DIAGNOSIS: Change in bowel habits POSTOPERATIVE DIAGNOSIS: Right side colon inflammation status post biopsy. Diverticulosis mild. Sigmoid colon polyp status post snare polypectomy and retrieved. Internal hemorrhoids OPERATION: Colonoscopy with snare polypectomy. Colonoscopy with biopsy SURGEON: AKANKSHA BRIAN ANESTHESIA: LMAC TISSUE REMOVED OR ALTERED: As noted above. COMPLICATIONS: None. ESTIMATED BLOOD LOSS: None. INTRAOPERATIVE FINDINGS: As noted above. PROCEDURE: Patient tolerated the procedure well. No immediate postprocedure complications are noted. Patient is discharged in good condition. Discharge date 02/07/2020. Discharge diet: Regular. Discharge activity: Regular. 2 to 3-week follow-up to discuss findings. Patient is instructed call the office or proceed to the emergency room should there be any further problems or questions. Wait on the pathology. 5-year surveillance colonoscopy.
[2020-02-07 11:06] VITALS: BP 130/85
== END 2020-02-07 11:28 | disposition home or self-care (01) ==
LOC: END 07:36
PROVIDERS: ATTEND Internal Medicine Gastroenterology
DX: K63.5 Polyp of colon (principal); K52.9 Noninfective gastroenteritis and colitis, unspecified; K57.30 Diverticulosis of large intestine without perforation or abscess without bleeding; K64.8 Other hemorrhoids; R19.4 Change in bowel habit; Z79.899 Other long term (current) drug therapy; Z68.27 Body mass index [BMI] 27.0-27.9, adult; F17.210 Nicotine dependence, cigarettes, uncomplicated
CPT/HCPCS: 45380; 45385; 88305 ×2; 00811; J2704; 811

== ENCOUNTER 2020-03-09 17:26 | Emergency (ER) | payer OTHER, MEDICARE, MEDICAID ==
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
[2020-03-09 18:35] LABS: ABSOLUTE EOSINOPHILS # (AUTO) 0.1 10^3/uL (0.0-0.6); ABSOLUTE LYMPHOCYTES (AUTO) 2.6 10^3/uL (0.5-4.7); ABSOLUTE NEUT (AUTO) 3.6 10^3/uL (1.7-8.2); BASOPHILS % (AUTO) 0.3 % (0-2); HEMATOCRIT 39.3 % (37.9-51.0); HEMOGLOBIN 13.6 g/dL (13.5-17.0); LYMPHOCYTES % (AUTO) 35.8 % (13-45); MEAN CORPUSCULAR HEMOGLOBIN 33.1 pg (27.0-33.4); MEAN CORPUSCULAR HGB CONC 34.7 g/dL (32.0-36.0); MEAN CORPUSCULAR VOLUME 95 fl (80-97); MONOCYTES % (AUTO) 13.8 % (3-13); PLATELET COUNT 130 10^3/uL (150-450); RED BLOOD COUNT 4.12 10^6/uL (4.35-5.55); RED CELL DISTRIBUTION WIDTH 14.3 % (11.5-14.0); SEGMENTED NEUTROPHILS % (AUTO) 49.1 % (42-78); TOTAL CELLS COUNTED % (AUTO) 100 %; WHITE BLOOD COUNT 7.4 10^3/uL (4.0-10.5)
[2020-03-09 18:54] LABS: ALBUMIN 4.1 g/dL (3.5-5.0); ALKALINE PHOSPHATASE 63 U/L (38-126); ANION GAP 7 (5-19); ASPARTATE AMINO TRANSFERASE 52 U/L (17-59); BILIRUBIN,DIRECT 0.4 mg/dL (0.0-0.4); BLOOD UREA NITROGEN 24 mg/dL (7-20); CALCIUM 8.8 mg/dL (8.4-10.2); CARBON DIOXIDE 28 mmol/L (22-30); CHLORIDE 100 mmol/L (98-107); GLUCOSE 78 mg/dL (75-110); POTASSIUM 4.4 mmol/L (3.6-5.0); TOTAL PROTEIN 6.5 g/dL (6.3-8.2)
[2020-03-09 18:56] LABS: ALCOHOL < 10 mg/dL (NONE DETECTED)
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
[2020-03-09 21:17] LABS: APPEARANCE,URINE CLEAR; BILIRUBIN,URINE NEGATIVE (NEGATIVE); COLOR,URINE YELLOW; GLUCOSE, URINE NEGATIVE (NEGATIVE); KETONES,URINE NEGATIVE (NEGATIVE); LEUKOCYTE ESTERASE,URINE NEGATIVE (NEGATIVE); NITRITE,URINE NEGATIVE (NEGATIVE); PROTEIN,URINE NEGATIVE (NEGATIVE); URINE SPECIFIC GRAVITY 1.024
[2020-03-09 21:36] LABS: URINE AMPHETAMINES SCREEN NEGATIVE; URINE BARBITURATES SCREEN NEGATIVE; URINE BENZODIAZEPINES SCREEN NEGATIVE; URINE COCAINE SCREEN NEGATIVE; URINE METHADONE SCREEN NEGATIVE; URINE PHENCYCLIDINE SCREEN NEGATIVE
[2020-03-09 21:41] LABS: URINE MARIJUANA (THC) SCREEN UNCONFIRMED POSITIVE
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
[2020-03-09 22:32] VITALS: BP 105/62
== END 2020-03-09 22:33 | disposition home or self-care (01) ==
LOC: ER 17:26
DX: R51.9 Headache, unspecified (principal); V49.40XA Driver injured in collision with unspecified motor vehicles in traffic accident, initial encounter; M50.30 Other cervical disc degeneration, unspecified cervical region; M47.812 Spondylosis without myelopathy or radiculopathy, cervical region; E86.0 Dehydration; M54.5 Low back pain; G89.29 Other chronic pain; Z79.899 Other long term (current) drug therapy; F17.200 Nicotine dependence, unspecified, uncomplicated; F12.10 Cannabis abuse, uncomplicated; I10 Essential (primary) hypertension; R26.81 Unsteadiness on feet; R47.9 Unspecified speech disturbances; Z88.1 Allergy status to other antibiotic agents
CPT/HCPCS: 36415; 70450; 72125; 80053; 80307; 81001; 85025; 99284

== ENCOUNTER 2020-04-10 15:03 | Emergency (ER) | payer MEDICARE, MEDICAID ==
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
[2020-04-10 15:37] VITALS: BP 125/86
[2020-04-10 17:16] LABS: APPEARANCE,URINE CLEAR; BILIRUBIN,URINE NEGATIVE (NEGATIVE); COLOR,URINE AMBER; GLUCOSE, URINE NEGATIVE (NEGATIVE); KETONES,URINE TRACE mg/dL (NEGATIVE); LEUKOCYTE ESTERASE,URINE TRACE (NEGATIVE); NITRITE,URINE NEGATIVE (NEGATIVE); PROTEIN,URINE 30 mg/dL (NEGATIVE); URINE SPECIFIC GRAVITY 1.023
[2020-04-10 17:20] LABS: ABSOLUTE EOSINOPHILS # (AUTO) 0.2 10^3/uL (0.0-0.6); ABSOLUTE LYMPHOCYTES (AUTO) 1.1 10^3/uL (0.5-4.7); ABSOLUTE MONOCYTES (AUTO) 1.3 10^3/uL (0.1-1.4); ABSOLUTE NEUT (AUTO) 4.2 10^3/uL (1.7-8.2); BASOPHILS % (AUTO) 0.2 % (0-2); EOSINOPHILS % (AUTO) 2.7 % (0-6); HEMATOCRIT 33.5 % (37.9-51.0); HEMOGLOBIN 11.5 g/dL (13.5-17.0); LYMPHOCYTES % (AUTO) 16.4 % (13-45); MEAN CORPUSCULAR HEMOGLOBIN 33.2 pg (27.0-33.4); MEAN CORPUSCULAR HGB CONC 34.2 g/dL (32.0-36.0); MEAN CORPUSCULAR VOLUME 97 fl (80-97); RED BLOOD COUNT 3.44 10^6/uL (4.35-5.55); RED CELL DISTRIBUTION WIDTH 13.7 % (11.5-14.0); SEGMENTED NEUTROPHILS % (AUTO) 61.7 % (42-78); TOTAL CELLS COUNTED % (AUTO) 100 %; WHITE BLOOD COUNT 6.8 10^3/uL (4.0-10.5)
[2020-04-10 17:29] LABS: PLATELET COUNT 81 10^3/uL (150-450)
[2020-04-10 17:30] LABS: ALBUMIN 3.6 g/dL (3.5-5.0); ALKALINE PHOSPHATASE 46 U/L (38-126); ANION GAP 8 (5-19); ASPARTATE AMINO TRANSFERASE 34 U/L (17-59); BILIRUBIN,DIRECT 0.3 mg/dL (0.0-0.4); BILIRUBIN,TOTAL 0.8 mg/dL (0.2-1.3); BLOOD UREA NITROGEN 32 mg/dL (7-20); CARBON DIOXIDE 28 mmol/L (22-30); CHLORIDE 97 mmol/L (98-107); CREATINE KINASE 35 U/L (55-170); GLUCOSE 92 mg/dL (75-110); POTASSIUM 4.8 mmol/L (3.6-5.0); TOTAL PROTEIN 6.2 g/dL (6.3-8.2)
--- NOTE | 2020-04-10 23:53 | EKG REPORT ---
SEVERITY:- NORMAL ECG - SINUS RHYTHM : Confirmed by: Clover Anderson MD 10-Apr-2020 23:51:37
== END 2020-04-10 20:00 | disposition left against medical advice (07) ==
LOC: ER 15:03
DX: R42 Dizziness and giddiness (principal); R55 Syncope and collapse; F17.210 Nicotine dependence, cigarettes, uncomplicated; E78.00 Pure hypercholesterolemia, unspecified; Z87.820 Personal history of traumatic brain injury
CPT/HCPCS: 36415; 80053; 81001; 82550; 82962; 84484; 85025; 93005; 93010; 99281

== ENCOUNTER 2020-04-12 09:07 | Observation (INO) | payer MEDICARE, MEDICAID ==
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
[2020-04-12 12:02] LABS: ABSOLUTE EOSINOPHILS # (AUTO) 0.2 10^3/uL (0.0-0.6); ABSOLUTE LYMPHOCYTES (AUTO) 1.2 10^3/uL (0.5-4.7); ABSOLUTE NEUT (AUTO) 2.7 10^3/uL (1.7-8.2); BASOPHILS % (AUTO) 0.3 % (0-2); EOSINOPHILS % (AUTO) 4.6 % (0-6); HEMOGLOBIN 11.8 g/dL (13.5-17.0); LYMPHOCYTES % (AUTO) 23.5 % (13-45); MEAN CORPUSCULAR HEMOGLOBIN 32.9 pg (27.0-33.4); MEAN CORPUSCULAR HGB CONC 33.8 g/dL (32.0-36.0); MEAN CORPUSCULAR VOLUME 98 fl (80-97); PLATELET COUNT 110 10^3/uL (150-450); RED BLOOD COUNT 3.59 10^6/uL (4.35-5.55); RED CELL DISTRIBUTION WIDTH 13.6 % (11.5-14.0); SEGMENTED NEUTROPHILS % (AUTO) 52.6 % (42-78); TOTAL CELLS COUNTED % (AUTO) 100 %; WHITE BLOOD COUNT 5.1 10^3/uL (4.0-10.5)
[2020-04-12 12:23] LABS: ANION GAP 7 (5-19); BLOOD UREA NITROGEN 26 mg/dL (7-20); CALCIUM 8.8 mg/dL (8.4-10.2); CARBON DIOXIDE 29 mmol/L (22-30); CHLORIDE 99 mmol/L (98-107); GLUCOSE 89 mg/dL (75-110)
--- NOTE | 2020-04-12 12:31 | RADIOLOGY REPORT (SQ) ---
EXAM DESCRIPTION: CT HEAD WITHOUT IMAGES COMPLETED DATE/TIME: 04/12/2020 12:21 pm REASON FOR STUDY: Headache, vertigo COMPARISON: 03/09/2020 TECHNIQUE: Axial images acquired through the brain without intravenous contrast. Images reviewed wi th bone, brain and subdural windows. Additional sagittal and coronal reconstructions were generated. Images stored on PACS. All CT scanners at this facility use dose modulation, iterative reconstruction, and/or weight based d osing when appropriate to reduce radiation dose to as low as reasonably achievable (ALARA). [facility]: Dose Right [facility]: CareDose [facility]: Dose Right [facility]: Teradose 4D [facility]: Pain Doctor RADIATION DOSE: CT Rad equipment meets quality standard of care and radiation dose reduction techniq ues were employed. CTDIvol: 53.2 mGy. DLP: 1070 mGy-cm. mGy. LIMITATIONS: None. FINDINGS: VENTRICLES: Normal size and contour. CEREBRUM: No masses. No hemorrhage. No midline shift. No evidence for acute infarction. Normal gra y/white matter differentiation. No areas of low density in the white matter. CEREBELLUM: No masses. No hemorrhage. No alteration of density. No evidence for acute infarction. EXTRAAXIAL SPACES: No fluid collections. No masses. ORBITS AND GLOBE: No intra- or extraconal masses. Normal contour of globe without masses. CALVARIUM: Old right frontal craniotomy. PARANASAL SINUSES: No fluid or mucosal thickening. SOFT TISSUES: No mass or hematoma. OTHER: No other significant finding. IMPRESSION: No acute findings. EVIDENCE OF ACUTE STROKE: NO. COMMENT: Quality ID # [id number]: Final reports with documentation of one or more dose reduction techniques (e.g., Automated exposure control, adjustment of the mA and/or kV according to patient size, use of iterative reconstruction technique) TECHNICAL DOCUMENTATION: JOB ID: [id number] 2010 [employer]- All Rights Reserved Reading location - IP/workstation name: [email or web address]
[2020-04-12 12:42] LABS: ALCOHOL < 10 mg/dL (NONE DETECTED)
--- NOTE | 2020-04-12 13:00 | RADIOLOGY REPORT (SQ) ---
EXAM DESCRIPTION: CHEST SINGLE VIEW IMAGES COMPLETED DATE/TIME: 04/12/2020 12:49 pm REASON FOR STUDY: weakness COMPARISON: 06/29/2018 EXAM PARAMETERS: NUMBER OF VIEWS: One view. TECHNIQUE: Single frontal radiographic view of the chest acquired. RADIATION DOSE: NA LIMITATIONS: None. FINDINGS: LUNGS AND PLEURA: The right hemidiaphragm appears to be elevated. Cannot exclude dense op acification in the right base. Patchy opacification in the left base. MEDIASTINUM AND HILAR STRUCTURES: No masses. Contour normal. HEART AND VASCULAR STRUCTURES: Heart normal in size. Normal vasculature. BONES: No acute findings. HARDWARE: None in the chest. OTHER: No other significant finding. IMPRESSION: Elevated right hemidiaphragm. Cannot exclude consolidation or pleural effusion on the r ight. Cannot exclude a limited left lower lobe pneumonia. TECHNICAL DOCUMENTATION: JOB ID: [id number] 2010 [employer]- All Rights Reserved Reading location - IP/workstation name: [email or web address]
[2020-04-12 13:02] LABS: APPEARANCE,URINE CLEAR; BILIRUBIN,URINE SMALL (NEGATIVE); COLOR,URINE DARK YELLOW; GLUCOSE, URINE NEGATIVE (NEGATIVE); KETONES,URINE NEGATIVE (NEGATIVE); PROTEIN,URINE NEGATIVE (NEGATIVE); URINE SPECIFIC GRAVITY 1.014
[2020-04-12 13:23] LABS: URINE AMPHETAMINES SCREEN NEGATIVE; URINE BARBITURATES SCREEN NEGATIVE; URINE BENZODIAZEPINES SCREEN NEGATIVE; URINE COCAINE SCREEN NEGATIVE; URINE METHADONE SCREEN NEGATIVE; URINE PHENCYCLIDINE SCREEN NEGATIVE
[2020-04-12 13:24] LABS: URINE MARIJUANA (THC) SCREEN UNCONFIRMED POSITIVE
--- NOTE | 2020-04-12 14:20 | RADIOLOGY REPORT (SQ) ---
EXAM DESCRIPTION: CT CHEST WITH IMAGES COMPLETED DATE/TIME: 04/12/2020 1:49 pm REASON FOR STUDY: abnormal CXR, r/o right base neoplasm COMPARISON: 2013 TECHNIQUE: CT scan of the chest performed using helical scanning technique with dynamic intravenous contrast injection. Images reviewed with lung, soft tissue and bone windows. Reconstructed coronal and sagittal MPR and MIP images reviewed. All images stored on PACS. All CT scanners at this facility use dose modulation, iterative reconstruction, and/or weight based d osing when appropriate to reduce radiation dose to as low as reasonably achievable (ALARA). [facility]: Dose Right [facility]: CareDose [facility]: Dose Right [facility]: Teradose 4D [facility]: [employer] CONTRAST TYPE AND DOSE: contrast/concentration: Isovue 350.00 mmol/ml; Total Contrast Delivered: 80. 0 ml; Total Saline Delivered: 42.2 ml RENAL FUNCTION: GFR > 60. RADIATION DOSE: CT Rad equipment meets quality standard of care and radiation dose reduction techniq ues were employed. CTDIvol: 12.4 mGy. DLP: 454 mGy-cm. . LIMITATIONS: Jewelry artifact. FINDINGS: LUNGS AND PLEURA: Chronic postsurgical changes in the right base. Patchy areas of ground- glass attenuation in both lungs, more conspicuous in the left upper lobe. No effusions. HILAR AND MEDIASTINAL STRUCTURES: No identified masses or abnormal nodes. HEART AND VASCULAR STRUCTURES: No aneurysm or dissection. No central pulmonary emboli. No pericardi al effusion. HARDWARE: None in the chest. UPPER ABDOMEN: Nonobstructing right renal calculus. THYROID AND OTHER SOFT TISSUES: No masses. No adenopathy. BONES: No significant finding. OTHER: No other significant finding. IMPRESSION: Bilateral ground-glass opacities consistent with viral or atypical pneumonia in the [facility] clinical setting. TECHNICAL DOCUMENTATION: JOB ID: [id number] Quality ID # [id number]: Final reports with documentation of one or more dose reduction techniques (e.g., Au tomated exposure control, adjustment of the mA and/or kV according to patient size, use of iterative reconstruction technique) 2010 [employer]- All Rights Reserved Reading location - IP/workstation name: [email or web address]
[2020-04-12] MEDS ORDERED: CEFTRIAXONE INJ 1000 MG VIAL IV ONE (15:27)
[2020-04-12] MEDS ORDERED: ALBUTEROL SULFATE 0.083% NEB 2.5 MG/3 ML AMPUL NEB PRN (16:56)
[2020-04-12] MEDS ORDERED: ACETAMINOPHEN 325 MG TABLET PO PRN (16:56)
[2020-04-12] MEDS ORDERED: MAGNESIUM HYDROXIDE SUSP 30 ML UDCUP PO PRN (16:56)
[2020-04-12] MEDS ORDERED: MAG HYDROX/AL HYDROX/SIMETH SUSP 30 ML UDCUP PO PRN (16:56)
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
[2020-04-12 17:29] LABS: ARTERIAL BLOOD BASE EXCESS 3.2 mmol/L; ARTERIAL BLOOD FIO2 ROOM AIR; ARTERIAL BLOOD H2CO3 1.38 mmol/L (1.05-1.35); ARTERIAL BLOOD HCO3 28.5 mmol/L (20-24); ARTERIAL BLOOD O2 SATURATION 95.2 % (94-98); ARTERIAL BLOOD PCO2 45.8 mmHg (35-45); ARTERIAL BLOOD PH 7.41 (7.35-7.45); ARTERIAL BLOOD PO2 75.2 mmHg (80-100); ARTERIAL BLOOD TOTAL CO2 29.9 mmol/L (23-27)
[2020-04-12] MEDS ORDERED: AZITHROMYCIN 250 MG TABLET PO ONE (17:30)
[2020-04-12 17:45] LABS: ALBUMIN 3.3 g/dL (3.5-5.0); ALKALINE PHOSPHATASE 39 U/L (38-126); ASPARTATE AMINO TRANSFERASE 39 U/L (17-59); BILIRUBIN,DIRECT 0.3 mg/dL (0.0-0.4); BILIRUBIN,TOTAL 0.7 mg/dL (0.2-1.3); TOTAL PROTEIN 5.9 g/dL (6.3-8.2)
[2020-04-12 17:49] LABS: C-REACTIVE PROTEIN 45.8 mg/L (<10.0)
[2020-04-12] MEDS: ASCORBIC ACID 500 MG TABLET PO SCH (18:12)
[2020-04-12] MEDS: PREDNISONE 20 MG TABLET PO SCH (18:13)
--- NOTE | 2020-04-12 19:06 | EKG REPORT ---
SEVERITY:- BORDERLINE ECG - ECTOPIC ATRIAL RHYTHM : Confirmed by: Clover Anderson MD 12-Apr-2020 19:05:17
--- NOTE | 2020-04-12 20:41 | RADIOLOGY REPORT (SQ) ---
MR BRAIN WITHOUT IV CONTRAST HISTORY: New onset ataxia. COMPARISON: CT scan from 04/12/2020 TECHNIQUE: Multisequence, multiplanar MR imaging of the brain was performed without the administration of intravenous gadolinium. FINDINGS: The ventricles, cisterns, and sulci are age-appropriate. There is no acute infarction, intracranial hemorrhage, extra-axial fluid collection, or mass. The orbits are unremarkable. There is evidence of prior right frontoparietal craniotomy. The paranasal sinuses are clear. The intravascular flow voids are preserved. IMPRESSION: No MR findings to explain patient's symptoms.
[2020-04-12] MEDS: IPRATROPIUM/ALBUTEROL 0.5-2.5 MG/3 ML AMPUL NEB SCH (21:00)
[2020-04-13] MEDS: IPRATROPIUM/ALBUTEROL 0.5-2.5 MG/3 ML AMPUL NEB SCH ×2 (08:04→19:36)
[2020-04-13 08:21] LABS: MEAN CORPUSCULAR HEMOGLOBIN 33.3 pg (27.0-33.4); MEAN CORPUSCULAR HGB CONC 34.8 g/dL (32.0-36.0); MEAN CORPUSCULAR VOLUME 96 fl (80-97); PLATELET COUNT 117 10^3/uL (150-450); RED BLOOD COUNT 4.19 10^6/uL (4.35-5.55); RED CELL DISTRIBUTION WIDTH 13.4 % (11.5-14.0); WHITE BLOOD COUNT 5.3 10^3/uL (4.0-10.5)
[2020-04-13 08:47] LABS: ANION GAP 11 (5-19); BLOOD UREA NITROGEN 19 mg/dL (7-20); CALCIUM 9.5 mg/dL (8.4-10.2); CARBON DIOXIDE 25 mmol/L (22-30); CHLORIDE 102 mmol/L (98-107); GLUCOSE 121 mg/dL (75-110); HEMOGLOBIN 13.9 g/dL (13.5-17.0); POTASSIUM 4.7 mmol/L (3.6-5.0)
[2020-04-13] MEDS ORDERED: ZINC SULFATE 220 MG CAPSULE PO SCH (10:00)
[2020-04-13] MEDS: ENOXAPARIN SODIUM INJ 40 MG/0.4 ML DISP.SYRIN SUBCUT SCH (10:05)
[2020-04-13] MEDS: DOCUSATE SODIUM 100 MG CAPSULE PO SCH (10:05)
[2020-04-13] MEDS: AZITHROMYCIN 250 MG TABLET PO SCH (10:05)
[2020-04-13] MEDS: ASCORBIC ACID 500 MG TABLET PO SCH ×2 (10:05→17:09)
[2020-04-13] MEDS: PREDNISONE 20 MG TABLET PO SCH (10:06)
[2020-04-13] MEDS: ASPIRIN 81 MG TABLET, ENT COATED PO SCH (10:06)
[2020-04-13] MEDS: ZINC SULFATE 220 MG CAPSULE PO SCH (11:11)
[2020-04-13] MEDS: CHOLECALCIFEROL (D3) 1,000 UNIT (25 MCG) TABLET PO SCH (11:11)
[2020-04-13] MEDS ORDERED: (PENDING PHARMACY ID) (Linaclotide 145 MCG Capsule) PO PRN (11:23)
[2020-04-13] MEDS ORDERED: TRAZODONE HCL 50 MG TABLET PO PRN (11:23)
[2020-04-13] MEDS: ONDANSETRON HCL INJ/PF 4 MG/2 ML SDV IV PRN ×2 (12:34→13:49)
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
[2020-04-13] MEDS ORDERED: (PENDING PHARMACY ID) (Gabapentin [Neurontin] 800 MG Tablet) PO SCH (14:00)
[2020-04-13] MEDS ORDERED: GABAPENTIN 400 MG CAPSULE PO SCH (15:00)
[2020-04-13] MEDS ORDERED: HALOPERIDOL LACTATE INJ 5 MG/1 ML VIAL IV ONE (15:02)
[2020-04-13] MEDS ORDERED: MORPHINE SULFATE 10 MG/ML INJ IV ONE (15:03)
[2020-04-13] MEDS ORDERED: MORPHINE SULFATE 10 MG/ML INJ ONE (15:13)
--- NOTE | 2020-04-13 15:36 | RADIOLOGY REPORT (SQ) ---
EXAM DESCRIPTION: KUB/ABDOMEN (SINGLE VIEW) IMAGES COMPLETED DATE/TIME: 04/13/2020 3:25 pm REASON FOR STUDY: abd pain COMPARISON: 03/05/2017 NUMBER OF VIEWS: One view. TECHNIQUE: Supine radiographic image of the abdomen acquired. LIMITATIONS: None. FINDINGS: BOWEL GAS PATTERN: Normal bowel gas pattern. No dilated loops. CALCIFICATIONS: 1.4 cm calcification overlying the inferior pole the left kidney is again noted. SOFT TISSUES: No gross mass or suggestion of organomegaly. HARDWARE: IVC filter is in place. BONES: Stable lumbar scoliosis with concavity toward the right. OTHER: No other significant finding. IMPRESSION: Stable left renal stone. IVC filter is in place. Gas pattern is nonspecific. TECHNICAL DOCUMENTATION: JOB ID: [id number] 2010 [employer]- All Rights Reserved Reading location - IP/workstation name: [email or web address]
[2020-04-13] MEDS: OXYCODONE HCL IR 5 MG TABLET PO SCH ×2 (15:59→21:18)
[2020-04-13] MEDS ORDERED: HYDROMORPHONE HCL INJ/PF 2 MG/ML AMPULE IV ONE (16:30)
[2020-04-13] MEDS: GABAPENTIN 400 MG CAPSULE PO SCH (17:09)
[2020-04-13] MEDS ORDERED: OXYCODONE HCL IR 5 MG TABLET PO SCH (18:00)
[2020-04-13] MEDS: NORMAL SALINE 1000 ML 1,000 ML IV PRN (21:18)
[2020-04-13] MEDS: DIVALPROEX SODIUM 250 MG TABLET.DR PO SCH (21:19)
[2020-04-13] MEDS ORDERED: SIMVASTATIN 10 MG TABLET PO SCH (22:00)
[2020-04-13] MEDS ORDERED: SIMVASTATIN 20 MG PO SCH (22:00)
[2020-04-13] MEDS ORDERED: DIVALPROEX SODIUM 500 MG PO SCH (22:00)
[2020-04-14] MEDS: GABAPENTIN 400 MG CAPSULE PO SCH ×2 (02:04→09:13)
[2020-04-14] MEDS: OXYCODONE HCL IR 5 MG TABLET PO SCH ×2 (02:04→09:12)
[2020-04-14] MEDS: NORMAL SALINE 1000 ML 1,000 ML IV PRN (05:06)
[2020-04-14] MEDS ORDERED: INFLUENZA QUAD (6MOS+) 2020-21 VAC 0.5 ML SYR IM ONE (08:00)
[2020-04-14] MEDS: PREDNISONE 20 MG TABLET PO SCH (09:12)
[2020-04-14] MEDS: ENOXAPARIN SODIUM INJ 40 MG/0.4 ML DISP.SYRIN SUBCUT SCH (09:12)
[2020-04-14] MEDS: IPRATROPIUM/ALBUTEROL 0.5-2.5 MG/3 ML AMPUL NEB SCH (09:12)
[2020-04-14] MEDS: DIVALPROEX SODIUM 250 MG TABLET.DR PO SCH (09:12)
[2020-04-14] MEDS: DOCUSATE SODIUM 100 MG CAPSULE PO SCH (09:12)
[2020-04-14] MEDS: ASPIRIN 81 MG TABLET, ENT COATED PO SCH (09:12)
[2020-04-14] MEDS: ASCORBIC ACID 500 MG TABLET PO SCH (09:13)
[2020-04-14] MEDS: ZINC SULFATE 220 MG CAPSULE PO SCH (09:13)
[2020-04-14] MEDS: CHOLECALCIFEROL (D3) 1,000 UNIT (25 MCG) TABLET PO SCH (09:13)
[2020-04-14] MEDS: AZITHROMYCIN 250 MG TABLET PO SCH (09:14)
[2020-04-14] MEDS ORDERED: FLUOXETINE HCL 20 MG CAPSULE PO SCH (10:00)
[2020-04-14] MEDS ORDERED: TAMSULOSIN HCL 0.4 MG CAP.SR.24H PO SCH (10:00)
[2020-04-14] MEDS ORDERED: (PENDING PHARMACY ID) (Fluoxetine Hcl [Prozac] 40 MG Capsule) PO SCH (10:00)
[2020-04-14 11:44] VITALS: BP 126/71
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
== END 2020-04-14 13:52 | disposition home or self-care (01) ==
LOC: ER 09:07 → EH 17:17 → 2N 23:15 → 4N 04-13 17:34
PROVIDERS: ADMIT Hospitalist; ATTEND Registered Nurse
DX: R53.1 Weakness (principal); R27.0 Ataxia, unspecified; I10 Essential (primary) hypertension; J44.1 Chronic obstructive pulmonary disease with (acute) exacerbation; Z20.828 Contact with and (suspected) exposure to other viral communicable diseases; F12.10 Cannabis abuse, uncomplicated; Z91.81 History of falling; Z87.820 Personal history of traumatic brain injury; E78.5 Hyperlipidemia, unspecified; F32.9 Major depressive disorder, single episode, unspecified; G62.9 Polyneuropathy, unspecified; Z79.899 Other long term (current) drug therapy; F17.210 Nicotine dependence, cigarettes, uncomplicated; Z23 Encounter for immunization; F19.10 Other psychoactive substance abuse, uncomplicated; Z88.1 Allergy status to other antibiotic agents
CPT/HCPCS: 93005; 99285; 96365; 36415 ×2; 80307 ×2; 82803; 82728; 83615; 83690; 83735; 84100; 84443; 85025; 85027; 0241U ×4; 86140; 80076; 80048 ×2; 81001; 80164; 82533; 85379; 70551; 71045; 74018; 70450; 71260; 90686; 94799; 93010; 94667; 94640 ×3; 97116; 97162; 97535; 97165; G0378 ×3; G0008; A9270 ×26; J2270; J1650 ×2; J1170; J0696; J3490 ×2; J2405; J7030 ×2; C9803; 90471; J7512